=== PATIENT | female | born 1980 ===

== ENCOUNTER 2017-10-24 14:51 | Inpatient (IN) | payer MEDICARE, MEDICAID ==
--- NOTE | 2017-10-24 15:10 | ED PDOC ---
Arrival/HPI - General Time Seen by Provider: 10/24/17 15:01 Historian: Patient - History of Present Illness Narrative History of Present Illness (Text): 10/24/17 15:10 A 37 year old female, whose past medical history includes hyperlipidemia, ESRD with hemodialysis on M/W/F, right kidney transplant, and anemia, sent into the emergency department by compliance paralegal for abnormal blood culture results. Patient experienced chills yesterday during dialysis treatment and had blood cultures done, which showed positive for infection. Patient was given Vancomycin and instructed to present to the emergency room today. Patient denies any symptomatic complaints at this time. Patient denies any fever, nasal congestion, rhinorrhea, cough, nausea, vomiting, abdominal pain, chest pain, shortness of breath or any other complaints. PMD: Dr. Vigil Entry Engineer: Dr. Sanford Time/Duration: Other (yesterday) Context: Other (dialysis) Past Medical History - Provider Review Nursing Documentation Reviewed: Yes - Cardiac Hx Congestive Heart Failure: Yes Hx Hypertension: Yes - Pulmonary Hx Asthma: Yes (as a child) - Neurological Hx Neurological Disorder: No - HEENT Hx HEENT Disorder: No - Renal Hx Renal Disorder: Yes () - Endocrine/Metabolic Hx Endocrine Disorders: No - Hematological/Oncological Hx Anemia: Yes - Integumentary Hx Dermatological Disorder: No - Musculoskeletal/Rheumatological Hx Musculoskeletal Disorders: No Hx Falls: No - Gastrointestinal Hx Gastrointestinal Disorders: No - Genitourinary/Gynecological Hx Genitourinary Disorders: No - Psychiatric Hx Substance Use: No - Surgical History Hx Coronary Artery Bypass Graft: Yes (2004) - Anesthesia Hx Anesthesia: Yes Hx Anesthesia Reactions: No Hx Malignant Hyperthermia: No - Suicidal Assessment Feels Threatened In Home Enviroment: No Family/Social History - Physician Review Nursing Documentation Reviewed: Yes Family/Social History: No Known Family HX Smoking Status: Never Smoked Hx Alcohol Use: No Hx Substance Use: No Allergies/Home Meds Allergies/Adverse Reactions: Allergies azithromycin [From Zithromax] Allergy (Severe, Verified 10/24/17 20:33) anxiety,, nausea pt recvd 5 ml of zithromas ivpb, became anxiuos, and nauseas, states "I think Im having an allergy to this, zithromax dc/;d stat ciprofloxacin [From Cipro] Allergy (Verified 10/24/17 20:33) SHORTNESS OF BREATH ciprofloxacin HCl [From Cipro] Allergy (Verified 10/24/17 20:33) SHORTNESS OF BREATH promethazine HCl [From Phenergan] Allergy (Verified 10/24/17 20:33) ITCHING Patient received 25 mg IV, states she has itching. Patient was given Benadryl with Phenergan. Home Medications: Home Meds Medication Instructions Recorded Confirmed Calcitriol [Rocaltrol] 0.5 mcg PO DAILY 12/30/15 10/24/17 Labetalol [Trandate] 500 mg PO TID 12/30/15 10/24/17 NIFEdipine ER [Procardia XL] 30 mg PO Q8 12/30/15 10/24/17 Sevelamer Carbonate [Renvela] 800 mg PO TID 12/30/15 10/24/17 cloNIDine [Catapres] 0.3 mg PO Q8H 12/30/15 10/24/17 Review of Systems - Physician Review All systems were reviewed & negative as marked: Yes - Review of Systems Constitutional: Normal, Night Sweats (yesterday, resolved). absent: Fevers ENT: absent: Rhinorrhea, Sinus Congestion Respiratory: absent: SOB, Cough Cardiovascular: absent: Chest Pain Gastrointestinal: absent: Abdominal Pain, Nausea, Vomiting Physical Exam Vital Signs Temp Pulse Resp BP Pulse Ox 10/24/17 19:24 97.9 F 90 18 147/103 H 100 10/24/17 17:58 97.6 F 90 18 170/119 H 100 10/24/17 17:05 95 H 18 164/117 H 100 10/24/17 16:19 96 H 18 156/111 H 98 10/24/17 15:43 98.3 F 92 H 18 158/109 H 98 Appearance: Positive for: Well-Appearing, Non-Toxic, Comfortable Pain Distress: None Mental Status: Positive for: Alert and Oriented X 3 - Systems Exam Head: Present: Atraumatic, Normocephalic Pupils: Present: PERRL Extroacular Muscles: Present: EOMI Conjunctiva: Present: Normal Mouth: Present: Moist Mucous Membranes Neck: Present: Normal Range of Motion Respiratory/Chest: Present: Clear to Auscultation, Good Air Exchange, Other ( Left chest access c/d/i). No: Respiratory Distress, Accessory Muscle Use Cardiovascular: Present: Regular Rate and Rhythm, Normal S1, S2. No: Murmurs Abdomen: No: Tenderness, Distention, Peritoneal Signs Back: Present: Normal Inspection Upper Extremity: Present: Normal Inspection, NORMAL PULSES. No: Cyanosis, Edema Lower Extremity: Present: Edema (1+ pitting edema), NORMAL PULSES, Other ( petechiae to bilateral lower extermities around ankles). No: CALF TENDERNESS Neurological: Present: GCS=15, CN II-XII Intact, Speech Normal Skin: Present: Warm, Dry, Normal Color. No: Rashes Psychiatric: Present: Alert, Oriented x 3, Normal Insight, Normal Concentration Medical Decision Making ED Course and Treatment: 10/24/17 15:10 Impression: A 37 year old female sent in for abnormal blood cultures. Differential Diagnosis included but are not limited to: Line sepsis Plan: -- Chest xray -- EKG -- Labs -- Blood culture -- Vancomycin and Zosyn -- Reassess and disposition Progress Notes: EKG shows NSR at [address]-segment elevations, normal intervals, normal axis. Interpreted by me. 10/24/17 17:00 Patient's labs reviewed. Case discussed with Dr. Laurent who will admit to his service. Patient comfortable. She stated that after abx her stomach got upset. I offered Pepcid and Maalox but she states they both don't help her. "Tylenol was ordered. - Lab Interpretations Lab Results: 10/24/17 16:32 10/24/17 16:32 Lab Results 10/24/17 16:32: Sodium 143, Chloride 97 L, Potassium 4.8, Carbon Dioxide 27, Anion Gap 24 H, BUN 36 H, Creatinine 6.6 H, Est GFR ( Amer) 9, Est GFR ( Non-Af Amer) 7, Random Glucose 97, Calcium 8.9, Phosphorus 5.2 H, Magnesium 2.1 , Total Bilirubin 0.8, AST 23, ALT 29, Alkaline Phosphatase 151 H, Total Protein 7.9, Albumin 4.4, Globulin 3.5, Albumin/Globulin Ratio 1.2 10/24/17 16:32: pO2 51, VBG pH 7.35, VBG pCO2 55.0, VBG HCO3 30.4 H, VBG Total CO2 32.1 H, VBG O2 Sat (Calc) 87.6 H, VBG Base Excess 3.4 H, VBG Potassium 5.6 H , Sodium 137.0, Chloride 100.0, Glucose 97, Lactate 1.6, FiO2 21.0, Venous Blood Potassium 5.6 H 10/24/17 16:32: PT 11.8, INR 1.03, APTT 35.4 10/24/17 16:32: WBC 3.5 L, RBC 3.67, Hgb 11.6 L, Hct 35.3 L, MCV 96.2, MCH 31.6 , MCHC 32.9, RDW 17.4 H, Plt Count 120, MPV 10.3, Gran % 58.8, Lymph % (Auto) 24.6, [place] % (Auto) 10.6 H, Eos % (Auto) 5.7 H, Baso % (Auto) 0.3, Gran # 2.05, Lymph # (Auto) 0.9 L, [place] # (Auto) 0.4, Eos # (Auto) 0.2, Baso # (Auto) 0.01 I have reviewed the lab results: Yes - RAD Interpretation Radiology Orders: 10/24/17 15:17 CHEST PORTABLE [RAD] Stat - Medication Orders Current Medication Orders: Clonidine HCl (Catapres) 0.3 mg PO Q8 [facility] Last Admin: 10/24/17 21:56 Dose: 0.3 mg MAR Pulse and Blood Pressure Document 10/24/17 21:56 PCO (Rec: 10/24/17 21:57 PCO [facility] [id number]) Pulse Pulse Rate (60-90) 88 Blood Pressure Blood Pressure (100/60-150/90) 155/115 Piperacillin Sod/Tazobactam Sod (Zosyn 2.25 Gm In 0.9% 100 Ml) 2.25 gm in 100 mls @ 100 mls/hr IVPB Q8 [facility] PRN Reason: Protocol Stop: 10/25/17 06:59 Last Admin: 10/24/17 21:55 Dose: 100 mls/hr eMAR Start Stop Document 10/24/17 21:55 PCO (Rec: 10/24/17 21:56 PCO [facility] [id number]) Intravenous Solution Start Date 10/24/17 Start Time 21:55 End Date 10/24/17 End time 22:30 Total Infusion Time 35 Nifedipine (Procardia Xl) 90 mg PO BID MARGOT Pantoprazole Sodium (Protonix Ec Tab) 40 mg PO 0600 MARGOT Discontinued Medications Acetaminophen (Tylenol 325mg Tab) 650 mg PO STAT STA Stop: 10/24/17 18:08 Last Admin: 10/24/17 18:38 Dose: 650 mg MAR Pain/Vitals Document 10/24/17 18:38 OCS (Rec: 10/24/17 18:38 OCS [facility]) Pain Reassessment Is This A Pain ReAssessment? Yes Sleep Is patient sleeping during reassessment? No Presence of Pain Presence of Pain Yes Pain Scale Used Pain Scale Used Numeric Location Pain Location Body Site Abdomen Description Constant Intensity 7 Scale Used Numeric Clonidine HCl (Catapres) 0.3 mg PO Q8H MARGOT Piperacillin Sod/Tazobactam Sod (Zosyn 4.5 Gm In Ns 100ml) 4.5 gm in 100 mls @ 200 mls/hr IVPB STAT STA PRN Reason: Protocol Stop: 10/24/17 15:45 Last Admin: 10/24/17 16:35 Dose: 200 mls/hr eMAR Start Stop Document 10/24/17 16:35 OCS (Rec: 10/24/17 16:36 OCS [facility]) Intravenous Solution Start Date 10/24/17 Start Time 16:36 End Date 10/24/17 End time 17:06 Total Infusion Time 30 Vancomycin HCl (Vancomycin 750 Mg In Ns) 750 mg in 250 mls @ 167 mls/hr IVPB STAT STA PRN Reason: Protocol Stop: 10/24/17 16:50 Last Admin: 10/24/17 18:30 Dose: 167 mls/hr eMAR Start Stop Document 10/24/17 18:30 OCS (Rec: 10/24/17 18:30 OCS [facility]) Intravenous Solution Start Date 10/24/17 Start Time 18:30 End Date 10/24/17 End time 20:00 Total Infusion Time 90 - Scribe Statement The provider has reviewed the documentation as recorded by the Scribe Vikki Talley Provider Scribe Attestation: All medical record entries made by the Scribe were at my direction and personally dictated by me. I have reviewed the chart and agree that the record accurately reflects my personal performance of the history, physical exam, medical decision making, and the department course for this patient. I have also personally directed, reviewed, and agree with the discharge instructions and disposition. Disposition/Present on Arrival - Present on Arrival Any Indicators Present on Arrival: No History of DVT/PE: No History of Uncontrolled Diabetes: No Urinary Catheter: No History Surgical Site Infection Following: None - Disposition Have Diagnosis and Disposition been Completed?: Yes Diagnosis: Sepsis Disposition: HOSPITALIZED Disposition Time: 17:00 Patient Plan: Admission Patient Problems: Current Active Problems Problem Status Onset Sepsis Acute Condition: FAIR
[2017-10-24] MEDS ORDERED: Piperacill/Tazo 4.5gm in NS 4.5 GM/100 ML BAG IVPB STA (15:16)
[2017-10-24] MEDS ORDERED: Vancomycin 750mg 750 MG/250 ML BAG IVPB STA (15:21)
[2017-10-24 16:43] LABS: VENOUS BLOOD GAS BASE EXCESS 3.4 mmol/L (0.0-2.0); VENOUS BLOOD GAS PO2 51 mm/Hg (30-55); VENOUS BLOOD PH 7.35 (7.32-7.43)
[2017-10-24 16:44] LABS: BASO # 0.01 K/mm3 (0.0-2.0); BASO % 0.3 % (0.0-3.0); EOS # 0.2 (0.0-0.7); EOS % 5.7 % (1.5-5.0); GRAN # 2.05 (1.4-6.5); GRAN % 58.8 % (50.0-68.0); HEMOGLOBIN 11.6 g/dL (12.0-16.0); LYMPH # 0.9 (1.2-3.4); LYMPH % 24.6 % (22.0-35.0); MEAN CELL VOLUME 96.2 fl (80.0-105.0); MEAN CORPUSCULAR HEMOGLOBIN 31.6 pg (25.0-35.0); MEAN CORPUSCULAR HGB CONC 32.9 g/dl (31.0-37.0); MEAN PLATELET VOLUME 10.3 fl (7.0-11.0); MONO # 0.4 (0.1-0.6); MONO % 10.6 % (1.0-6.0); RBC 3.67 10^6/uL (3.5-6.1); RED CELL DISTRIBUTION WIDTH 17.4 % (11.5-14.5); WHITE BLOOD COUNT 3.5 10^3/ul (4.5-11.0)
[2017-10-24 16:54] LABS: ALB/GLOB RATIO 1.2 (1.1-1.8); ALBUMIN 4.4 g/dL (3.0-4.8); CALCIUM 8.9 mg/dL (8.4-10.5); INR 1.03 (0.93-1.08); PARTIAL THROMBOPLASTIN TIME 35.4 Seconds (25.1-36.5); PROTHROMBIN TIME 11.8 SECONDS (9.4-12.5)
--- NOTE | 2017-10-24 17:07 | CP.PCM.HP ---
<Ramiro Salazar - Last Filed: 10/24/17 19:06> History of Present Illness - History of Present Illness History of Present Illness: Subjective: Patient is a 37 year old female with a past medical history HTN, ESRD and CKD currently on dialysis (MWF), HUS, anemia who was sent into the emergency department per rack pusher for abnormal blood culture results. Patient states she experienced chills yesterday during dialysis treatment and had blood cultures drawn which were positive for infection. Patient was given vancomycin and instructed to present to the emergency room today. Patient states chills have subsided. Does not make urine at baseline. Patient admits to vaginal discharge, yellow in color associated with itchiness and burning. Denies recent sexual activity. Denies hx of STDs. States the vaginal discharge occurs intermittently over the past several months and has been treated for it in the past. Denies fevers, chest pain, SOB, abdominal pain, N/V, diarrhea, constipation. 12 point ROS negative except as indicated in HPI PMHx: HTN, ESRD and CKD currently on dialysis (MWF) in [place] PSHx: 2004 superior vena cava revascularization due to blockages, 2005 right kidney transplant, 2010 breast implants ALL: Cipro- anaphylaxis SHx: denies tobacco use, ETOH use, and illicit drug use FMHx: father cardiomegaly, mother- CAD PMD: Dr. Vigil Pharmacy: [facility] in [place] Physical Examination: - Constitutional Appears: Non-toxic, No Acute Distress - Head Exam Head Exam: ATRAUMATIC, NORMOCEPHALIC - Eye Exam Eye Exam: EOMI - ENT Exam ENT Exam: Mucous Membranes Moist - Neck Exam Neck exam: Positive for: Full Rom - Respiratory Exam Respiratory Exam: CTA bilaterally - Cardiovascular Exam Cardiovascular Exam: +S1, +S2. absent: Systolic Murmur - GI/Abdominal Exam GI & Abdominal Exam: Normal Bowel Sounds, Soft, RLQ bump secondary to transplant absent: Distended, Firm, Mass, Rebound, Rigid - Extremities Exam Extremities exam: Positive for: normal inspection. Negative for: calf tenderness, pedal edema - Neurological Exam Neurological exam: Alert, Oriented x3 - Exam exam: pelvic exam performed by Juliane Johansen DO and chaperoned by female nurse, as per physician- white milky discharge, no labial redness - Psychiatric Exam Psychiatric exam: Normal Affect, Normal Mood - Skin Skin Exam: Intact, Normal Color, Warm, left wall chest port clean dry intact; bilateral lower extremity erythematous rash Assessment and Plan: Patient is a 37 year old female with a past medical history HTN, ESRD and CKD currently on dialysis (MWF) who was admitted for evaluation and treatment of abnormal blood culture results. Bacteremia - blood cultures- gram negative rods - vancomycin and zosyn started in ED - zosyn 2.25 mg q8h - infectious disease consulted- appreciate recommendations for antibiotic regiment - need to find source- CT abdomen/pelvis IV contrast, RUQ abdominal ultrasound, echocardiogram Bilateral Lower Extremity Erythematous Rash - likely 2/2 dermal irritation - no acute intervention - monitor closely Vaginal Discharge - chlamydia culture - will contact lab to find gonorrhea testing that is available in house Hx of ESRD on MWF - BUN creatinine reviewed, trended, and appreciated- elevated compared to baseline - nephrology consult for dialysis Hx of HTN - BP 160s/110s reviewed, trended, and appreciated- elevated compared to baseline - continue home nifidipine and clonidine - clarify home labetalol dosage prior to starting as 500mg TID is over the maximum dosage allowed per day Prophylaxis - DVT ppx- SCDs - GI ppx- protonix Patient case reviewed with and plan approved by attending physician, Dr. Laurent. Present on Admission - Present on Admission Any Indicators Present on Admission: No Past Patient History - Infectious Disease Hx of Infectious Diseases: None - Past Medical History & Family History Past Medical History?: Yes - Past Social History Smoking Status: Never Smoked - CARDIAC Hx Congestive Heart Failure: Yes Hx Hypertension: Yes - PULMONARY Hx Asthma: Yes (as a child) - NEUROLOGICAL Hx Neurological Disorder: No - HEENT Hx HEENT Problems: No - RENAL Hx Chronic Kidney Disease: Yes () - ENDOCRINE/METABOLIC Hx Endocrine Disorders: No - HEMATOLOGICAL/ONCOLOGICAL Hx Anemia: Yes - INTEGUMENTARY Hx Dermatological Problems: No - MUSCULOSKELETAL/RHEUMATOLOGICAL Hx Musculoskeletal Disorders: No Hx Falls: No - GASTROINTESTINAL Hx Gastrointestinal Disorders: No - GENITOURINARY/GYNECOLOGICAL Hx Genitourinary Disorders: No - PSYCHIATRIC Hx Substance Use: No - SURGICAL HISTORY Hx Coronary Artery Bypass Graft: Yes (2004) - ANESTHESIA Hx Anesthesia: Yes Hx Anesthesia Reactions: No Hx Malignant Hyperthermia: No Meds Allergies/Adverse Reactions: Allergies Allergy/AdvReac Type Severity Reaction Status Date / Time azithromycin [From Zithromax] Allergy Severe anxiety,, Verified 10/24/17 20:33 nausea ciprofloxacin [From Cipro] Allergy SHORTNESS Verified 10/24/17 20:33 OF BREATH ciprofloxacin HCl Allergy SHORTNESS Verified 10/24/17 20:33 [From Cipro] OF BREATH promethazine HCl Allergy ITCHING Verified 10/24/17 20:33 [From Phenergan] Results - Vital Signs Recent Vital Signs: Last Vital Signs Temp 98.3 F 10/24/17 15:43 Pulse 95 H 10/24/17 17:05 Resp 18 10/24/17 17:05 BP 164/117 H 10/24/17 17:05 Pulse Ox 100 10/24/17 17:05 - Labs Result Diagrams: 10/24/17 16:32 10/24/17 16:32 Labs: Laboratory Results - last 24 hr 10/24/17 10/24/17 10/24/17 16:32 16:32 16:32 WBC 3.5 L RBC 3.67 Hgb 11.6 L Hct 35.3 L MCV 96.2 MCH 31.6 MCHC 32.9 RDW 17.4 H Plt Count 120 MPV 10.3 Gran % 58.8 Lymph % (Auto) 24.6 [place] % (Auto) 10.6 H Eos % (Auto) 5.7 H Baso % (Auto) 0.3 Gran # 2.05 Lymph # (Auto) 0.9 L [place] # (Auto) 0.4 Eos # (Auto) 0.2 Baso # (Auto) 0.01 PT 11.8 INR 1.03 APTT 35.4 pO2 51 VBG pH 7.35 VBG pCO2 55.0 VBG HCO3 30.4 H VBG Total CO2 32.1 H VBG O2 Sat (Calc) 87.6 H VBG Base Excess 3.4 H VBG Potassium 5.6 H Sodium 137.0 Chloride 100.0 Glucose 97 Lactate 1.6 FiO2 21.0 Potassium Carbon Dioxide Anion Gap BUN Creatinine Est GFR ( Amer) Est GFR (Non-Af Amer) Random Glucose Calcium Phosphorus Magnesium Total Bilirubin AST ALT Alkaline Phosphatase Total Protein Albumin Globulin Albumin/Globulin Ratio Venous Blood Potassium 5.6 H 10/24/17 16:32 WBC RBC Hgb Hct MCV MCH MCHC RDW Plt Count MPV Gran % Lymph % (Auto) [place] % (Auto) Eos % (Auto) Baso % (Auto) Gran # Lymph # (Auto) [place] # (Auto) Eos # (Auto) Baso # (Auto) PT INR APTT pO2 VBG pH VBG pCO2 VBG HCO3 VBG Total CO2 VBG O2 Sat (Calc) VBG Base Excess VBG Potassium Sodium 143 Chloride 97 L Glucose Lactate FiO2 Potassium 4.8 Carbon Dioxide 27 Anion Gap 24 H BUN 36 H Creatinine 6.6 H Est GFR ( Amer) 9 Est GFR (Non-Af Amer) 7 Random Glucose 97 Calcium 8.9 Phosphorus 5.2 H Magnesium 2.1 Total Bilirubin 0.8 AST 23 ALT 29 Alkaline Phosphatase 151 H Total Protein 7.9 Albumin 4.4 Globulin 3.5 Albumin/Globulin Ratio 1.2 Venous Blood Potassium <Mayra Laurent - Last Filed: 10/26/17 14:14> Results - Vital Signs Recent Vital Signs: Last Vital Signs Temp 98.1 F 10/26/17 00:15 Pulse 89 10/26/17 06:44 Resp 16 10/26/17 00:15 BP 129/94 H 10/26/17 06:44 Pulse Ox 100 10/26/17 00:15 - Labs Result Diagrams: 10/26/17 07:00 10/26/17 07:00 Labs: Laboratory Results - last 24 hr 10/25/17 10/26/17 10/26/17 08:00 07:00 07:00 WBC 6.1 D RBC 3.39 L Hgb 10.5 L Hct 32.2 L MCV 95.0 MCH 31.0 MCHC 32.6 RDW 17.1 H Plt Count 93 L MPV 10.0 Gran % 78.9 H Lymph % (Auto) 7.9 L [place] % (Auto) 10.0 H Eos % (Auto) 3.0 Baso % (Auto) 0.2 Gran # 4.80 Lymph # (Auto) 0.5 L [place] # (Auto) 0.6 Eos # (Auto) 0.2 Baso # (Auto) 0.01 Sodium 138 Potassium 4.1 Chloride 97 L Carbon Dioxide 26 Anion Gap 19 BUN 31 H Creatinine 6.5 H Est GFR ( Amer) 9 Est GFR (Non-Af Amer) 7 Random Glucose 98 Calcium 8.3 L Phosphorus 4.6 H Magnesium 2.0 Total Bilirubin 0.7 AST 15 ALT 25 Alkaline Phosphatase 128 H Total Protein 6.8 Albumin 3.7 Globulin 3.1 Albumin/Globulin Ratio 1.2 HIV 1&2 Ag/Ab, 4th Gen Nonreactive Attending/Attestation - Attestation I have personally seen and examined this patient.: Yes I have fully participated in the care of the patient.: Yes I have reviewed all pertinent clinical information: Yes Notes (Text): 10/26/17 14:13 Medical record note made by the resident after discussion with my direction and input after the patient was personally seen and examined by me. I have reviewed the chart and agree that the record accurately reflects by personal performance of the history, physical exam, data review, and medical decision-making, in the course for the patient. I have also personally directed the plan of care. 37 F with hx of ESRD on hemodialysis (MWF) via permacath, last dialysis wesnesday chronic anemia, hyperphosphatemia, secondary hyperparathyroidism, hypertension ,H/O renal transplant which is not functional presented with complaints of chills during dialysis and found to have gram negative bacteremia.identification is pending We will start patient on IV Zosyn.We will get ID consult.We will also get CT scan of abdomen and Pelvis and 2 D echo.We will follow up repeat blood cultures. Management plan was discussed in detail with patient. Education was provided.
--- NOTE | 2017-10-24 21:10 | CARD ---
APPROVED REPORT EKG Measurement Heart [id number] <Conclusion> Normal sinus rhythm Possible Left atrial enlargement Nonspecific T wave abnormality Prolonged QT Abnormal ECG
[2017-10-24] MEDS ORDERED: Piperacillin/Tazobact 2.25gm 2.25 GM/100 ML BAG IVPB SCH (22:00)
--- NOTE | 2017-10-24 22:09 | US ---
EXAM: US Abdomen Complete EXAM DATE/TIME: 10/24/2017 6:28 PM CLINICAL HISTORY: The patient age is 37 years old and is female; Pain; Abdominal pain; Generalized; Additional info: Bacteremia, abd pain Facility exam id and description: Us abd abdomen complete TECHNIQUE: Real-time ultrasound of the abdomen (complete) with image documentation. COMPARISON: No relevant prior studies available. FINDINGS: Liver: The liver measures 15.1 x 14.4 cm. Gallbladder: The gallbladder is partially contracted, without discrete gallstones. There is no significant collateral thickening. Common bile duct: The common bile duct measures 0.7 cm in diameter, which is at the upper limits of normal. Pancreas: There is suboptimal evaluation of the tail of the pancreas due to bowel gas. No focal abnormality is seen within the visualized head or body of the pancreas. Kidneys: The right kidney measures 8.3 x 2.6 x 4.4 cm. The left kidney measures 8.8 x 3.5 x 3.2 cm. There is no hydronephrosis of the [place]ath kidneys. There is increased echogenicity of the bilateral kidneys, consistent with medical renal disease. There is atrophy of the [place] kidneys as well. At the upper pole of the left kidney, there is a 0.8 x 0.5 cm hypoechoic cyst. Within the right lower quadrant, a transplant kidney is visualized measuring 7.5 x 4.6 x 4.3 cm. There is significant decreased flow in involving the right transplant kidney, and transplant failure is considered. Multiple tiny echogenic foci or calcifications are visualized associated with the transplant kidney. Spleen: The spleen measures 14.9 x 5.6 cm, consistent with splenomegaly. There is normal echotexture of the spleen. Aorta: There is a limited evaluation of the abdominal aorta. The visualized segment is patent. Inferior vena cava: The visualized segment of the IVC is patent. IMPRESSION: 1. Splenomegaly. 2. There is increased echogenicity of the bilateral kidneys, consistent with medical renal disease. There is atrophy of the [place]cgrath kidneys as well. At the upper pole of the left kidney, there is a 0.8 x 0.5 cm hypoechoic cyst. 3. Within the right lower quadrant, a transplant kidney is visualized measuring 7.5 x 4.6 x 4.3 cm. There is significant decreased flow in involving the right kidney, and transplant failure is considered. 4. Additional findings described above.
[2017-10-24] MEDS ORDERED: Oxycodone/Acetaminophen 5/325 mg Tab PO PRN (23:10)
[2017-10-24 23:11] VITALS: BMI 16.4
[2017-10-24] MEDS ORDERED: Pneumococcal 23-Valent Vaccine IM ONE (23:11)
[2017-10-24] MEDS: Meropenem 500 MG in Sodium Chloride 0.9% 50 ML IVPB SCH (23:44)
[2017-10-25] MEDS: Pantoprazole 40 mg EC Tab PO SCH (06:01)
--- NOTE | 2017-10-25 06:53 | CP.PCM.PN ---
<Kaia Tena - Last Filed: 10/25/17 13:00> Subjective - Date & Time of Evaluation Date of Evaluation: 10/25/17 Time of Evaluation: 06:53 - Subjective Subjective: Internal Medicine Progress Note: Patient seen and examined at bedside. Per nursing no acute events overnight. Patient complaining of vaginal itching x 1 week. She states that she was using vaginal creams for yeast infection but no relief. Offers no other complaints at this time. Denies fevers/chills, nausea/vomiting, headaches, dizziness, cp, palpitations, sob, abdominal pain, changes in bowel habits. Patient will go or CT abd/pelvis with IV contrast then Dialysis to follow. Objective - Vital Signs/Intake and Output Vital Signs (last 24 hours): Temp Pulse Resp BP Pulse Ox 97.1 F L 90 18 155/115 H 100 10/24/17 22:38 10/24/17 22:38 10/24/17 22:38 10/24/17 22:38 10/24/17 19:24 Intake and Output: 10/24/17 10/25/17 18:59 06:59 Intake Total 240 Balance 240 - Medications Medications: Current Medications Clonidine HCl (Catapres) 0.3 mg PO Q8 [facility] Last Admin: 10/24/17 21:56 Dose: 0.3 mg Meropenem 500 mg/ Sodium (Chloride) 50 mls @ 100 mls/hr IVPB Q12 [facility] PRN Reason: Protocol Stop: 11/02/17 22:42 Last Admin: 10/24/17 23:44 Dose: 100 mls/hr Nifedipine (Procardia Xl) 90 mg PO BID [facility] Oxycodone/Acetaminophen (Percocet 5/325 Mg Tab) 1 tab PO ONCE PRN PRN Reason: pain Stop: 10/27/17 23:11 Pantoprazole Sodium (Protonix Ec Tab) 40 mg PO 0600 [facility] - Labs Labs: PT 11.8 SECONDS (9.4-12.5) 10/24/17 16:32 INR 1.03 (0.93-1.08) 10/24/17 16:32 APTT 35.4 Seconds (25.1-36.5) 10/24/17 16:32 - Constitutional Appears: Non-toxic, No Acute Distress, Chronically Ill - Head Exam Head Exam: ATRAUMATIC, NORMAL INSPECTION, NORMOCEPHALIC - Eye Exam Eye Exam: EOMI, Normal appearance Pupil Exam: NORMAL ACCOMODATION - ENT Exam ENT Exam: Mucous Membranes Moist - Respiratory Exam Respiratory Exam: Clear to Ausculation Bilateral, NORMAL BREATHING PATTERN. absent: Rales, Rhonchi, Wheezes - Cardiovascular Exam Cardiovascular Exam: REGULAR RHYTHM, +S1, +S2 Additional comments: Left sided Dialysis catheter, appears clean, no drainage, erythema, tenderness - GI/Abdominal Exam GI & Abdominal Exam: Soft, Tenderness, Normal Bowel Sounds. absent: Guarding, Rigid Additional comments: RLQ tenderness to palpation, negative murphys, no rebound tenderness - Extremities Exam Additional comments: Old AVF (reversed) on left upper arm - Neurological Exam Neurological Exam: Alert, Awake, Normal Gait, Oriented x3 - Psychiatric Exam Psychiatric exam: Normal Affect, Normal Mood - Skin Skin Exam: Dry, Normal Color, Warm Assessment and Plan - Assessment and Plan (Free Text) Assessment: Assessment and Plan: Patient is a 37 year old female with a past medical history HTN, ESRD and CKD currently on dialysis (MWF) who was admitted for evaluation and treatment of abnormal blood culture results. Gram Negative Bacteremia - 10/23 Blood cultures- gram negative rods, awaiting sensitivities - Repeat blood cultures drawn 10/24 pending, procal elevated 43 - Source is unknown at this time, patient states that permacath was recently changed secondary to infection - CT abd/pelvis with IV contrast to be done today to rule out intra-abdominal source - Echocardiogram ordered - Abdominal US: Splenomegaly, increased echogenity of bilateral kidneys (see full report) - CXR: Mild pulmonary venous congestion - Vancomycin and Zosyn started in ED - Antibiotics: Merrem 500 Q12H IV - Infectious disease consulted- appreciate recommendations for antibiotic regiment Bilateral Lower Extremity Erythematous Rash - likely 2/2 dermal irritation - no acute intervention - monitor closely Vaginal Discharge/Vaginal Itchiness - Chlamydia culture sent to lab - Will give Diflucan 150mg q72H x 2 doses for severe yeast infection Hx of ESRD on MWF - Patient for HD today after CT scan - Renagel 2400mg PO TID - Nephro-duke 1 tab PO daily - Patient does not make urine - Nephrology consult for dialysis Hx of HTN - Continue home nifidipine and clonidine - Hydralazine 25mg PO Q4H prn - Will continue to monitor Prophylaxis - DVT ppx- SCDs - GI ppx- protonix <Mayra Laurent - Last Filed: 10/26/17 14:12> Objective - Vital Signs/Intake and Output Vital Signs (last 24 hours): Temp Pulse Resp BP Pulse Ox 98.1 F 89 16 129/94 H 100 10/26/17 00:15 10/26/17 06:44 10/26/17 00:15 10/26/17 06:44 10/26/17 00:15 Intake and Output: 10/26/17 10/26/17 06:59 18:59 Intake Total 700 Balance 700 - Medications Medications: Current Medications Clonidine HCl (Catapres) 0.3 mg PO Q8 [facility] Last Admin: 10/26/17 06:44 Dose: 0.3 mg Doxercalciferol (Hectorol) 2 mcg [facility]P [facility] Last Admin: 10/25/17 14:07 Dose: 2 mcg Etelcalcetide (Parsabiv) 5 mg IVP [facility] Last Admin: 10/25/17 14:09 Dose: 5 mg Fluconazole (Diflucan) 150 mg PO ONCE ONE PRN Reason: Protocol Stop: 10/28/17 11:01 Heparin Sodium (Porcine) (Heparin) 1,000 units IVP [facility] PRN Reason: Protocol Hydralazine HCl (Apresoline) 25 mg PO Q4 PRN PRN Reason: Other Meropenem 500 mg/ Sodium (Chloride) 50 mls @ 100 mls/hr IVPB Q12 [facility] PRN Reason: Protocol Stop: 11/02/17 22:42 Last Admin: 10/26/17 13:38 Dose: 100 mls/hr Nifedipine (Procardia Xl) 90 mg PO BID [facility] Last Admin: 10/26/17 13:39 Dose: 90 mg Oxycodone/Acetaminophen (Percocet 5/325 Mg Tab) 1 tab PO ONCE PRN PRN Reason: pain Stop: 10/27/17 23:11 Pantoprazole Sodium (Protonix Ec Tab) 40 mg PO 0600 [facility] Last Admin: 10/26/17 06:44 Dose: 40 mg Polyethylene Glycol (Miralax) 17 gm PO BID [facility] Last Admin: 10/26/17 13:39 Dose: 17 gm Sevelamer HCl (Renagel) 2,400 mg PO TID [facility] Last Admin: 10/26/17 13:39 Dose: 2,400 mg Vitamin B Complex/Vit C/Folic Acid (Nephro-[facility]) 1 tab PO 0800 [facility] Last Admin: 10/26/17 08:30 Dose: 1 tab - Labs Labs: 10/26/17 07:00 10/26/17 07:00 PT 11.8 SECONDS (9.4-12.5) 10/24/17 16:32 INR 1.03 (0.93-1.08) 10/24/17 16:32 APTT 35.4 Seconds (25.1-36.5) 10/24/17 16:32 Attending/Attestation - Attestation I have personally seen and examined this patient.: Yes I have fully participated in the care of the patient.: Yes I have reviewed all pertinent clinical information, including history, physical exam and plan: Yes Notes (Text): 10/26/17 14:00 Medical record note made by the resident after discussion with my direction and input after the patient was personally seen and examined by me. I have reviewed the chart and agree that the record accurately reflects by personal performance of the history, physical exam, data review, and medical decision-making, in the course for the patient. I have also personally directed the plan of care. 37 F with hx of ESRD on hemodialysis (MWF) via permacath, last dialysis wesnesday chronic anemia, hyperphosphatemia, secondary hyperparathyroidism, hypertension ,H/O renal transplant which is not functional presented with complaints of chills during dialysis and found to have gram negative bacteremia. CT scan of abdomen and Pelvis is negative for any source of infection.Etiology is likely line sepsis as blood cultures drawn from peripherally are negative. Continue IV antibiotics as per ID.We will follow up Echo. Management plan was discussed in detail with patient. Education was provided.
[2017-10-25 08:20] LABS: BASO # 0.01 K/mm3 (0.0-2.0); BASO % 0.3 % (0.0-3.0); EOS # 0.2 (0.0-0.7); EOS % 5.6 % (1.5-5.0); GRAN # 2.44 (1.4-6.5); GRAN % 67.9 % (50.0-68.0); HEMOGLOBIN 10.4 g/dL (12.0-16.0); LYMPH # 0.7 (1.2-3.4); LYMPH % 19.2 % (22.0-35.0); MEAN CORPUSCULAR HEMOGLOBIN 30.8 pg (25.0-35.0); MEAN CORPUSCULAR HGB CONC 32.4 g/dl (31.0-37.0); MEAN PLATELET VOLUME 10.8 fl (7.0-11.0); MONO # 0.3 (0.1-0.6); RBC 3.38 10^6/uL (3.5-6.1); RED CELL DISTRIBUTION WIDTH 17.2 % (11.5-14.5); WHITE BLOOD COUNT 3.6 10^3/ul (4.5-11.0)
[2017-10-25 08:34] LABS: ALB/GLOB RATIO 1.4 (1.1-1.8); ALBUMIN 4.3 g/dL (3.0-4.8)
[2017-10-25] MEDS ORDERED: Iohexol 350 MG/100 ML VIAL ONE (08:39)
[2017-10-25] MEDS: NIFEdipine 90 mg ER Tab PO SCH ×2 (10:49→15:48)
--- NOTE | 2017-10-25 11:08 | RAD ---
HISTORY: Sepsis Patient COMPARISON: No prior. FINDINGS: The left PermCath terminates at the cavoatrial junction. LUNGS: The lungs are well inflated. There is mild pulmonary venous congestion. No focal consolidation. PLEURA: No significant pleural effusion identified, no pneumothorax apparent. CARDIOVASCULAR: There is mild cardiomegaly. Status post median sternotomy. OSSEOUS STRUCTURES: No significant abnormalities. VISUALIZED UPPER ABDOMEN: Normal. OTHER FINDINGS: None. IMPRESSION: Mild pulmonary venous congestion. No active pulmonary disease.
--- NOTE | 2017-10-25 11:12 | CP.PCM.CON ---
History of Present Illness - History of Present Illness History of Present Illness: Nephrology Consultation Note: Assessment: critical Sepsis with GNR ? permacath infection Hypertensive Chronic Kidney Disease (I12.0) End stage renal disease (N18.6) dependence on hemodialysis (Z99.2) (MWF) via permacath Anemia (D64.9), Hyperphosphatemia (E83.39), Secondary Hyperparathyroidism (E21.1 ), HTN (I12.0) hx of kidney transplant [id number] hx of SVC reconstruction Plan: Will plan for HD today as ordered. Continue with Nephrovite 1 tab/day. PRBC as needed for anemia. On ALVARO as weekly aransep 25 mcg with dialysis, last Hb 10.4 Continue with phos binders home dose, last phos level 5.6 Continue with hectorol and parsabiv with HD BP control with meds as ordered. Patient not on RAAS benito, she was prescribed as outpt but she doesn't take it. added prn hydralazine. Glycemic control, Dialysis consistent diet Further work up/management as per primary team Dose meds/antibiotics for ESRD status. Avoid fleets enema/magnesium based laxatives. she is planned for CT abdomen. if no other source for infection found, will strongly consider permacath as the source. Depending upon blood cx results, hopefully can just change it over guidewire by IR. Thanks for allowing me to participate in care of your patient. Will follow patient with you. Please call if any Qs. d/w ID and Primary team Dr Yvon Sanford Office: [phone] Chief Complaint; chills during dialysis HPI: Pt is a 37 F with hx of ESRD on hemodialysis (MWF) via permacath, last dialysis wed, chronic anemia, hyperphosphatemia, secondary hyperparathyroidism, hypertension presented with complaints of chills during dialysis and found to have gram negative bacteremia hence admitted for further eval. she c/o rash around ankles. also feels somewhat SOB, reports ankle swelling she is anuric also reports difficult access with hx of SVC reconstruction, left AVF thrombosis. 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 received a kidney transplant in 2005 (@ [place] with Dr Laird) which failed in 2015 and pt back on HD since then ROS: Cardiovascular: No chest pain. Pulmonary: c/o shortness of breath Gastrointestinal: c/o RLQ abdominal pain No nausea. No vomiting. Genitourinary: anuric All other negative Physical Examination: General Appearance: Comfortable, in no acute respiratory distress, co-operative . Vitals reviewed and noted as below Head; Atraumatic, normocephalic ENT: no ulcers no thrush. Tongue is midline. Oropharynx: no rash or ulcers. EYES: Pupils are equal, round and reactive to light accommodation. Eye muscles and extraocular movement intact. Sclera is anicteric. Neck; supple no lymphadenopathy, no thyromegaly or bruit. Lungs: Normal respiratory rate/effort. Breath sounds bilateral equal and clear Heart: Normal rate. s1s2 normal. No rub or gallop. chest midline scar noted Extremities: 1-2+ edema. No varicose veins Neurological: Patient is alert, awake and oriented to person, place and time. No focal deficit. Strength bilateral appropriate and equal Skin: Warm and dry. Normal turgor. Palpitation: Normal elasticity for age. petechial non blanching rash around ankle noted Abdomen: Abdomen is soft. Bowel sounds +. There is no abdominal tenderness, no guarding/rigidity or organomegaly, mild tenderness over RLQ renal allograft noted Psych: normal insight and normal affect/mood MSK: no joint tenderness or swelling. Digits and nails normal, no deformity : [place] kidney or bladder not palpable Access: left permacath. left avf thrombosed. Labs/imaging reviewed. Past medical history, past surgical history, family history, social history, allergy reviewed and noted as below Family Hx: sister also on HD (pt says due to HUS) rest Non contributory Past Patient History - Infectious Disease Hx of Infectious Diseases: None - Past Medical History & Family History Past Medical History?: Yes - Past Social History Smoking Status: Never Smoked - CARDIAC Hx Congestive Heart Failure: Yes Hx Hypertension: Yes - PULMONARY Hx Asthma: Yes (as a child) - NEUROLOGICAL Hx Neurological Disorder: No - HEENT Hx HEENT Problems: No - RENAL Hx Chronic Kidney Disease: Yes (HD ) - ENDOCRINE/METABOLIC Hx Endocrine Disorders: No - HEMATOLOGICAL/ONCOLOGICAL Hx Anemia: Yes - INTEGUMENTARY Hx Dermatological Problems: No - MUSCULOSKELETAL/RHEUMATOLOGICAL Hx Musculoskeletal Disorders: No Hx Falls: No - GASTROINTESTINAL Hx Gastrointestinal Disorders: No - GENITOURINARY/GYNECOLOGICAL Hx Genitourinary Disorders: No - PSYCHIATRIC Hx Substance Use: No - SURGICAL HISTORY Hx Coronary Artery Bypass Graft: Yes (2004) - ANESTHESIA Hx Anesthesia: Yes Hx Anesthesia Reactions: No Hx Malignant Hyperthermia: No Meds Allergies/Adverse Reactions: Allergies Allergy/AdvReac Type Severity Reaction Status Date / Time azithromycin [From Zithromax] Allergy Severe anxiety,, Verified 10/24/17 20:33 nausea ciprofloxacin [From Cipro] Allergy SHORTNESS Verified 10/24/17 20:33 OF BREATH ciprofloxacin HCl Allergy SHORTNESS Verified 10/24/17 20:33 [From Cipro] OF BREATH promethazine HCl Allergy ITCHING Verified 10/24/17 20:33 [From Phenergan] - Medications Medications: Current Medications Clonidine HCl (Catapres) 0.3 mg PO Q8 [facility] Last Admin: 10/25/17 06:54 Dose: 0.3 mg Etelcalcetide (Parsabiv) 5 mg IVP MWF [facility] Heparin Sodium (Porcine) (Heparin) 1,000 units IVP [facility] PRN Reason: Protocol Hydralazine HCl (Apresoline) 25 mg PO Q4 PRN PRN Reason: Other Meropenem 500 mg/ Sodium (Chloride) 50 mls @ 100 mls/hr IVPB Q12 [facility] PRN Reason: Protocol Stop: 11/02/17 22:42 Last Admin: 10/24/17 23:44 Dose: 100 mls/hr Nifedipine (Procardia Xl) 90 mg PO BID [facility] Last Admin: 10/25/17 10:49 Dose: Not Given Oxycodone/Acetaminophen (Percocet 5/325 Mg Tab) 1 tab PO ONCE PRN PRN Reason: pain Stop: 10/27/17 23:11 Pantoprazole Sodium (Protonix Ec Tab) 40 mg PO 0600 [facility] Sevelamer HCl (Renagel) 2,400 mg PO TID [facility] Vitamin B Complex/Vit C/Folic Acid (Nephro-Teresa) 1 tab PO 0800 [facility] Results - Vital Signs Recent Vital Signs: Last Vital Signs Temp 98 F 10/25/17 06:00 Pulse 83 10/25/17 06:54 Resp 20 10/25/17 06:00 BP 135/98 H 10/25/17 06:54 Pulse Ox 99 10/25/17 06:00 - Labs Result Diagrams: 10/25/17 08:00 10/25/17 08:00 Labs: Laboratory Results - last 24 hr 10/25/17 10/25/17 10/25/17 08:00 08:00 09:00 WBC 3.6 L RBC 3.38 L Hgb 10.4 L Hct 32.1 L MCV 95.0 MCH 30.8 MCHC 32.4 RDW 17.2 H Plt Count 121 MPV 10.8 Gran % 67.9 Lymph % (Auto) 19.2 L [place] % (Auto) 7.0 H Eos % (Auto) 5.6 H Baso % (Auto) 0.3 Gran # 2.44 Lymph # (Auto) 0.7 L [place] # (Auto) 0.3 Eos # (Auto) 0.2 Baso # (Auto) 0.01 Sodium 143 Potassium 4.7 Chloride 99 Carbon Dioxide 24 Anion Gap 25 H BUN 42 H Creatinine 8.0 H* D Est GFR ( Amer) 7 Est GFR (Non-Af Amer) 6 Random Glucose 90 Calcium 9.0 Phosphorus 5.6 H Magnesium 2.1 Total Bilirubin 0.6 AST 26 ALT 28 Alkaline Phosphatase 151 H Total Protein 7.4 Albumin 4.3 Globulin 3.1 Albumin/Globulin Ratio 1.4 Beta HCG, Quant < 2.39
[2017-10-25] MEDS: Doxercalciferol 4 mcg/2 ml Inj IVP SCH (14:07)
[2017-10-25] MEDS: ETELCALCETIDE IVP SCH (14:09)
--- NOTE | 2017-10-25 14:11 | CT ---
PROCEDURE: CT Abdomen and Pelvis with contrast HISTORY: Bactermia COMPARISON: Ultrasound abdomen from 10/24/2017 TECHNIQUE: CT scan of the abdomen and pelvis was performed after administration of intravenous contrast. Oral contrast was not administered. Coronal and sagittal reformatted images were obtained. Contrast dose: 100 mL Omnipaque 350 Radiation dose: Total exam DLP = 188.50 mGy-cm. This CT exam was performed using one or more of the following dose reduction techniques: Automated exposure control, adjustment of the mA and/or kV according to patient size, and/or use of iterative reconstruction technique. FINDINGS: LOWER THORAX: The lung bases are clear. LIVER: There is mild hepatomegaly and diffuse fatty infiltration. No gross lesion or ductal dilatation. GALLBLADDER AND BILE DUCTS: No calcified gallstones. There is small pericholecystic fluid. PANCREAS: Normal in size with homogeneous enhancement. No gross lesion or ductal dilatation. SPLEEN: The spleen is enlarged and measures 15 cm. No focal lesion. ADRENALS: No discrete nodule. KIDNEYS AND URETERS: Both kidneys are atrophied. No hydronephrosis or nephrolithiasis. There is a nonenhancing transplant kidney in the right lower quadrant. VASCULATURE: Atherosclerotic aortoiliac calcifications. No aortic aneurysm. BOWEL: The small bowel loops are normal in caliber. The colon is unremarkable. No bowel dilatation or obstruction APPENDIX: Normal appendix. PERITONEUM: No free fluid. No free air. LYMPH NODES: No enlarged lymph nodes. BLADDER: Decompressed. REPRODUCTIVE: The uterus is normal in size. BONES: No acute fracture. The osseous changes of renal osteodystrophy. OTHER FINDINGS: None. IMPRESSION: 1. Mild hepatosplenomegaly and fatty liver. 2. Atrophied [place] kidneys and non perfused right liver quadrant renal transplant concerning for transplant failure. 3. Renal osteodystrophy.
[2017-10-25] MEDS: Meropenem 500 MG in Sodium Chloride 0.9% 50 ML IVPB SCH ×2 (15:01→22:00)
--- NOTE | 2017-10-25 21:31 | CP.PCM.CON ---
History of Present Illness - History of Present Illness History of Present Illness: 37 year old female with PMH of HTN, ESRD on HD, history of hemolytic uremic syndrome, chronic anemia, S/P kidney transplant, history of breast implants was sent in to [facility] after she started complaining of chills while undergoing dialysis 2 days ago. Blood cx were drawn at that time and blood cultures are positive for gram negative bacilli. She is also complaining of vaginal discharge with associated itching and burning in the genital area. She denies pain along the HD catheter, denies headache or dizziness, no chest pain, no SOB , no sore throat, no cough or colds, no abdominal pain, no dysuria, no diarrhea. Infectious Diseases consult is requested to further evaluate and manage. Review of Systems - Review of Systems All systems: reviewed and no additional remarkable complaints except (as per HPI ) Past Patient History - Infectious Disease Hx of Infectious Diseases: None - Past Medical History & Family History Past Medical History?: Yes - Past Social History Smoking Status: Never Smoked - CARDIAC Hx Congestive Heart Failure: Yes Hx Hypertension: Yes - PULMONARY Hx Asthma: Yes (as a child) - NEUROLOGICAL Hx Neurological Disorder: No - HEENT Hx HEENT Problems: No - RENAL Hx Chronic Kidney Disease: Yes () - ENDOCRINE/METABOLIC Hx Endocrine Disorders: No - HEMATOLOGICAL/ONCOLOGICAL Hx Anemia: Yes - INTEGUMENTARY Hx Dermatological Problems: No - MUSCULOSKELETAL/RHEUMATOLOGICAL Hx Musculoskeletal Disorders: No Hx Falls: No - GASTROINTESTINAL Hx Gastrointestinal Disorders: No - GENITOURINARY/GYNECOLOGICAL Hx Genitourinary Disorders: No - PSYCHIATRIC Hx Substance Use: No - SURGICAL HISTORY Hx Coronary Artery Bypass Graft: Yes (2004) - ANESTHESIA Hx Anesthesia: Yes Hx Anesthesia Reactions: No Hx Malignant Hyperthermia: No Meds Allergies/Adverse Reactions: Allergies Allergy/AdvReac Type Severity Reaction Status Date / Time azithromycin [From Zithromax] Allergy Severe anxiety,, Verified 10/24/17 20:33 nausea ciprofloxacin [From Cipro] Allergy SHORTNESS Verified 10/24/17 20:33 OF BREATH ciprofloxacin HCl Allergy SHORTNESS Verified 10/24/17 20:33 [From Cipro] OF BREATH promethazine HCl Allergy ITCHING Verified 10/24/17 20:33 [From Phenergan] - Medications Medications: Current Medications Clonidine HCl (Catapres) 0.3 mg PO Q8 [facility] Last Admin: 10/24/17 21:56 Dose: 0.3 mg Meropenem 500 mg/ Sodium (Chloride) 50 mls @ 100 mls/hr IVPB Q12 [facility] PRN Reason: Protocol Stop: 11/02/17 22:42 Last Admin: 10/24/17 23:44 Dose: 100 mls/hr Nifedipine (Procardia Xl) 90 mg PO BID [facility] Oxycodone/Acetaminophen (Percocet 5/325 Mg Tab) 1 tab PO ONCE PRN PRN Reason: pain Stop: 10/27/17 23:11 Pantoprazole Sodium (Protonix Ec Tab) 40 mg PO 0600 [facility] Physical Exam - Constitutional Appears: Non-toxic, Chronically Ill - Head Exam Head Exam: NORMAL INSPECTION - ENT Exam ENT Exam: Mucous Membranes Moist - Neck Exam Neck exam: Negative for: Meningismus - Respiratory Exam Respiratory Exam: absent: Rales, Rhonchi Additional comments: left anterior chest wall with HD catheter in place - Cardiovascular Exam Cardiovascular Exam: +S1, +S2 - GI/Abdominal Exam GI & Abdominal Exam: Soft. absent: Tenderness Results - Vital Signs Recent Vital Signs: Last Vital Signs Temp 97.1 F L 10/24/17 22:38 Pulse 90 10/24/17 22:38 Resp 18 10/24/17 22:38 BP 155/115 H 10/24/17 22:38 Pulse Ox 100 10/24/17 19:24 - Labs Result Diagrams: 10/25/17 08:00 10/25/17 08:00 Assessment & Plan - Assessment and Plan (Free Text) Plan: Assessment Gram negative bacilli bacteremia, suspicious for HD catheter-related bacteremia consider rolando vaginitis HTN ESRD on HD history of hemolytic uremic syndrome chronic anemia S/P kidney transplant history of breast implants Plan Started patient on Merrem pending identification and sensitivities of the gram negative bacilli in the blood; follow up repeat blood cx and will also get doppler U/S of the left upper extremity to rule out DVT will give a dose of Diflucan for the vaginitis will monitor clinically discussed with Dr. Sanford
[2017-10-26] MEDS: Pantoprazole 40 mg EC Tab PO SCH (06:44)
[2017-10-26 07:52] LABS: BASO # 0.01 K/mm3 (0.0-2.0); BASO % 0.2 % (0.0-3.0); EOS # 0.2 (0.0-0.7); GRAN # 4.8 (1.4-6.5); GRAN % 78.9 % (50.0-68.0); HEMOGLOBIN 10.5 g/dL (12.0-16.0); LYMPH # 0.5 (1.2-3.4); LYMPH % 7.9 % (22.0-35.0); MEAN CORPUSCULAR HGB CONC 32.6 g/dl (31.0-37.0); MONO # 0.6 (0.1-0.6); RBC 3.39 10^6/uL (3.5-6.1); RED CELL DISTRIBUTION WIDTH 17.1 % (11.5-14.5); WHITE BLOOD COUNT 6.1 10^3/ul (4.5-11.0)
[2017-10-26 08:12] LABS: ALB/GLOB RATIO 1.2 (1.1-1.8); ALBUMIN 3.7 g/dL (3.0-4.8); CALCIUM 8.3 mg/dL (8.4-10.5)
[2017-10-26] MEDS: Multivitamin Vitamin B Complex (Nephro-Vite) Tab PO SCH (08:30)
[2017-10-26] MEDS ORDERED: Bisacodyl 5mg EC Tab PO ONE (09:05)
--- NOTE | 2017-10-26 10:15 | CP.PCM.PN ---
<Brittanie Guzman - Last Filed: 10/26/17 15:18> Subjective - Date & Time of Evaluation Date of Evaluation: 10/26/17 Time of Evaluation: 07:00 - Subjective Subjective: Progress Note for Hospitalist, Chelo Guzman PGY2 Patient seen and examined at bedside. As per nursing staff there were no acute overnight events. Patient reports having chills and feeling not well during dialysis. It improved after dialysis. Since then she denies chest pain, shortness of breath, nausea/vomiting/diarrhea, fever/chills, weakness, numbness/ tingling. She complains of constipation. Objective - Vital Signs/Intake and Output Vital Signs (last 24 hours): Temp Pulse Resp BP Pulse Ox 98.1 F 89 16 129/94 H 100 10/26/17 00:15 10/26/17 06:44 10/26/17 00:15 10/26/17 06:44 10/26/17 00:15 Intake and Output: 10/26/17 10/26/17 06:59 18:59 Intake Total 700 Balance 700 - Medications Medications: Current Medications Clonidine HCl (Catapres) 0.3 mg PO Q8 [facility] Last Admin: 10/26/17 06:44 Dose: 0.3 mg Doxercalciferol (Hectorol) 2 mcg IVP MOWEFR [facility] Last Admin: 10/25/17 14:07 Dose: 2 mcg Etelcalcetide (Parsabiv) 5 mg IVP [facility] Last Admin: 10/25/17 14:09 Dose: 5 mg Fluconazole (Diflucan) 150 mg PO ONCE ONE PRN Reason: Protocol Stop: 10/28/17 11:01 Heparin Sodium (Porcine) (Heparin) 1,000 units IVP [facility] PRN Reason: Protocol Hydralazine HCl (Apresoline) 25 mg PO Q4 PRN PRN Reason: Other Meropenem 500 mg/ Sodium (Chloride) 50 mls @ 100 mls/hr IVPB Q12 [facility] PRN Reason: Protocol Stop: 11/02/17 22:42 Last Admin: 10/25/17 22:00 Dose: 100 mls/hr Nifedipine (Procardia Xl) 90 mg PO BID [facility] Last Admin: 10/25/17 15:48 Dose: 90 mg Oxycodone/Acetaminophen (Percocet 5/325 Mg Tab) 1 tab PO ONCE PRN PRN Reason: pain Stop: 10/27/17 23:11 Pantoprazole Sodium (Protonix Ec Tab) 40 mg PO 0600 [facility] Last Admin: 10/26/17 06:44 Dose: 40 mg Polyethylene Glycol (Miralax) 17 gm PO BID [facility] Sevelamer HCl (Renagel) 2,400 mg PO TID [facility] Last Admin: 10/25/17 17:51 Dose: 2,400 mg Vitamin B Complex/Vit C/Folic Acid (Nephro-Teresa) 1 tab PO 0800 [facility] Last Admin: 10/26/17 08:30 Dose: 1 tab - Labs Labs: 10/26/17 07:00 10/26/17 07:00 PT 11.8 SECONDS (9.4-12.5) 10/24/17 16:32 INR 1.03 (0.93-1.08) 10/24/17 16:32 APTT 35.4 Seconds (25.1-36.5) 10/24/17 16:32 - Constitutional Appears: No Acute Distress - Head Exam Head Exam: ATRAUMATIC, NORMAL INSPECTION, NORMOCEPHALIC - Eye Exam Eye Exam: Normal appearance, PERRL Pupil Exam: NORMAL ACCOMODATION, PERRL - ENT Exam ENT Exam: Mucous Membranes Moist - Neck Exam Neck Exam: Full ROM, Normal Inspection - Respiratory Exam Respiratory Exam: Clear to Ausculation Bilateral, NORMAL BREATHING PATTERN. absent: Rales, Rhonchi, Wheezes - Cardiovascular Exam Cardiovascular Exam: REGULAR RHYTHM, +S1, +S2. absent: Gallop, Rubs, Murmur - GI/Abdominal Exam GI & Abdominal Exam: Soft, Normal Bowel Sounds. absent: Rigid, Tenderness, Mass , Rebound - Extremities Exam Extremities Exam: Normal Inspection. absent: Calf Tenderness, Pedal Edema - Neurological Exam Neurological Exam: Alert, Awake, CN II-XII Intact, Oriented x3 - Psychiatric Exam Psychiatric exam: Normal Affect, Normal Mood - Skin Skin Exam: Dry, Warm Additional comments: L chest dialysis site in place- clean and dry Assessment and Plan - Assessment and Plan (Free Text) Assessment: This is a 37yo female with past medical history of HTN, failed renal transplant , ESRD on HD MWF, who was admitted for gram negative bactermia most likely secondary to infected dialysis port. Plan: 1. Gram Negative Bacteremia - Most likely secondary to infected permacath - Blood culture from permacath showed Pseudomonas which is sensitive to Merrem - Peripheral blood culture showed no growrth - Echo ordered - Patient on Merrem - ID consulted- recs appreciated - Nephro consulted- recommends to have IR change the permacath on Saturday - CT A/P did not show any sign of infection 2. Vaginal discharge/itching (resolved) - Patient given Diflucan - Will follow up Chlamydia cultures 3. ESRD on HD MWF - Continue HD - Continue Nephrovit - Renagel - Continue medications received during HD as per Nephro 4. Hx of HTN - Continue Clonidine, Procardia - Hydralazine 25mg PO Q4H prn - Will continue to monitor 5. Constipation - Continue Miralax prn - Given one dose dulcolax GI ppx: Protonix DVT ppx: Heparin SC Case seen, discussed and reviewed with attending. Chelo Guzman PGY2 <Mayra Laurent - Last Filed: 10/26/17 15:47> Objective - Vital Signs/Intake and Output Vital Signs (last 24 hours): Temp Pulse Resp BP Pulse Ox 98.1 F 78 16 152/108 H 100 10/26/17 00:15 10/26/17 14:31 10/26/17 00:15 10/26/17 14:31 10/26/17 00:15 Intake and Output: 10/26/17 10/26/17 06:59 18:59 Intake Total 700 Balance 700 - Medications Medications: Current Medications Clonidine HCl (Catapres) 0.3 mg PO Q8 [facility] Last Admin: 10/26/17 14:31 Dose: 0.3 mg [facility]oxercalciferol (Hectorol) [facility] Last Admin: 10/25/17 14:07 Dose: 2 mcg Etelcalcetide (Parsabiv) 5 mg IVP [facility] Last Admin: 10/25/17 14:09 Dose: 5 mg Fluconazole (Diflucan) 150 mg PO ONCE ONE PRN Reason: Protocol Stop: 10/28/17 11:01 Heparin Sodium (Porcine) (Heparin) 1,000 units IVP [facility] PRN Reason: Protocol Hydralazine HCl (Apresoline) 25 mg PO Q4 PRN PRN Reason: Other Meropenem 500 mg/ Sodium (Chloride) 50 mls @ 100 mls/hr IVPB Q12 [facility] PRN Reason: Protocol Stop: 11/02/17 22:42 Last Admin: 10/26/17 13:38 Dose: 100 mls/hr Nifedipine (Procardia Xl) 90 mg PO BID [facility] Last Admin: 10/26/17 13:39 Dose: 90 mg Oxycodone/Acetaminophen (Percocet 5/325 Mg Tab) 1 tab PO ONCE PRN PRN Reason: pain Stop: 10/27/17 23:11 Pantoprazole Sodium (Protonix Ec Tab) 40 mg PO 0600 [facility] Last Admin: 10/26/17 06:44 Dose: 40 mg Polyethylene Glycol (Miralax) 17 gm PO BID [facility] Last Admin: 10/26/17 13:39 Dose: 17 gm Sevelamer HCl (Renagel) 2,400 mg PO TID [facility] Last Admin: 10/26/17 14:28 Dose: Not Given Vitamin B Complex/Vit C/Folic Acid (Nephro-Teresa) 1 tab PO 0800 [facility] Last Admin: 10/26/17 08:30 Dose: 1 tab - Labs Labs: 10/26/17 07:00 10/26/17 07:00 PT 11.8 SECONDS (9.4-12.5) 10/24/17 16:32 INR 1.03 (0.93-1.08) 10/24/17 16:32 APTT 35.4 Seconds (25.1-36.5) 10/24/17 16:32 Attending/Attestation - Attestation I have personally seen and examined this patient.: Yes I have fully participated in the care of the patient.: Yes I have reviewed all pertinent clinical information, including history, physical exam and plan: Yes Notes (Text): 10/26/17 15:45 Medical record note made by the resident after discussion with my direction and input after the patient was personally seen and examined by me. I have reviewed the chart and agree that the record accurately reflects by personal performance of the history, physical exam, data review, and medical decision-making, in the course for the patient. I have also personally directed the plan of care. 37 F with hx of ESRD on hemodialysis (MWF) via permacath, last dialysis wesday chronic anemia, hyperphosphatemia, secondary hyperparathyroidism, hypertension ,H/O renal transplant which is not functional presented with complaints of chills during dialysis and found to have gram negative bacteremia (Pseudomona aeruginosa) CT scan of abdomen and Pelvis is negative for any source of infection.Etiology is due to line sepsis as blood cultures drawn from peripherally are negative. Continue IV antibiotics as per ID.We will follow up Echo. Management plan was discussed in detail with patient. Education was provided. 10/26/17 15:46
--- NOTE | 2017-10-26 10:28 | CP.PCM.PN ---
Subjective - Date & Time of Evaluation Date of Evaluation: 10/26/17 Time of Evaluation: 10:26 - Subjective Subjective: Nephrology Consultation Note: Assessment: critical Sepsis with GNR ? permacath infection Hypertensive Chronic Kidney Disease (I12.0) End stage renal disease (N18.6) dependence on hemodialysis (Z99.2) (MWF) via permacath Anemia (D64.9), Hyperphosphatemia (E83.39), Secondary Hyperparathyroidism (E21.1 ), HTN (I12.0) hx of kidney transplant [id number] hx of SVC reconstruction Plan: HD next on Sat Continue with Nephrovite 1 tab/day. If surveillance cultures remain negative hopefullly can plan on exchange of permacath on saturday and dialysis afterwards Weekly aranesp continue phos binder Continue with hectorol and parsabiv with HD bp meds as ordered discussed w/ primary team s; seen and examined no fevers o/n Physical Examination: General Appearance: Comfortable, in no acute respiratory distress, co-operative . Vitals reviewed and noted as below Head; Atraumatic, normocephalic ENT: no ulcers no thrush. Tongue is midline. Oropharynx: no rash or ulcers. EYES: Pupils are equal, round and reactive to light accommodation. Eye muscles and extraocular movement intact. Sclera is anicteric. Neck; supple no lymphadenopathy, no thyromegaly or bruit. Lungs: Normal respiratory rate/effort. Breath sounds bilateral equal and clear Heart: Normal rate. s1s2 normal. No rub or gallop. chest midline scar noted Extremities: 1-2+ edema. No varicose veins Neurological: Patient is alert, awake and oriented to person, place and time. No focal deficit. Strength bilateral appropriate and equal Skin: Warm and dry. Normal turgor. Palpitation: Normal elasticity for age. petechial non blanching rash around ankle noted Abdomen: Abdomen is soft. Bowel sounds +. There is no abdominal tenderness, no guarding/rigidity or organomegaly, mild tenderness over RLQ renal allograft noted Psych: normal insight and normal affect/mood MSK: no joint tenderness or swelling. Digits and nails normal, no deformity : samish kidney or bladder not palpable Access: left permacath. left avf thrombosed. Labs/imaging reviewed. Past medical history, past surgical history, family history, social history, allergy reviewed and noted as below Family Hx: sister also on HD (pt says due to HUS) rest Non contributory Objective - Vital Signs/Intake and Output Vital Signs (last 24 hours): Temp Pulse Resp BP Pulse Ox 98.1 F 89 16 129/94 H 100 10/26/17 00:15 10/26/17 06:44 10/26/17 00:15 10/26/17 06:44 10/26/17 00:15 Intake and Output: 10/26/17 10/26/17 06:59 18:59 Intake Total 700 Balance 700 - Medications Medications: Current Medications Clonidine HCl (Catapres) 0.3 mg PO Q8 [facility] Last Admin: 10/26/17 06:44 Dose: 0.3 mg Doxercalciferol (Hectorol) 2 mcg IVP MOWEFR [facility] Last Admin: 10/25/17 14:07 Dose: 2 mcg Etelcalcetide (Parsabiv) 5 mg IVP MWF [facility] Last Admin: 10/25/17 14:09 Dose: 5 mg Fluconazole (Diflucan) 150 mg PO ONCE ONE PRN Reason: Protocol Stop: 10/28/17 11:01 Heparin Sodium (Porcine) (Heparin) 1,000 units [place]P [facility] PRN Reason: Protocol Hydralazine HCl (Apresoline) 25 mg PO Q4 PRN PRN Reason: Other Meropenem 500 mg/ Sodium (Chloride) 50 mls @ 100 mls/hr IVPB Q12 [facility] PRN Reason: Protocol Stop: 11/02/17 22:42 Last Admin: 10/25/17 22:00 Dose: 100 mls/hr Nifedipine (Procardia Xl) 90 mg PO BID [facility] Last Admin: 10/25/17 15:48 Dose: 90 mg Oxycodone/Acetaminophen (Percocet 5/325 Mg Tab) 1 tab PO ONCE PRN PRN Reason: pain Stop: 10/27/17 23:11 Pantoprazole Sodium (Protonix Ec Tab) 40 mg PO 0600 [facility] Last Admin: 10/26/17 06:44 Dose: 40 mg Polyethylene Glycol (Miralax) 17 gm PO BID [facility] Sevelamer HCl (Renagel) 2,400 mg PO TID [facility] Last Admin: 10/25/17 17:51 Dose: 2,400 mg Vitamin B Complex/Vit C/Folic Acid (Nephro-Teresa) 1 tab PO 0800 [facility] Last Admin: 10/26/17 08:30 Dose: 1 tab - Labs Labs: 10/26/17 07:00 10/26/17 07:00 PT 11.8 SECONDS (9.4-12.5) 10/24/17 16:32 INR 1.03 (0.93-1.08) 10/24/17 16:32 APTT 35.4 Seconds (25.1-36.5) 10/24/17 16:32
[2017-10-26] MEDS: POLYETHYLENE GLYCOL 3350 17 GM/Dose PACKET PO SCH ×3 (11:22→18:30)
[2017-10-26] MEDS: Meropenem 500 MG in Sodium Chloride 0.9% 50 ML IVPB SCH ×2 (13:38→22:28)
[2017-10-26] MEDS: NIFEdipine 90 mg ER Tab PO SCH ×2 (13:39→18:27)
--- NOTE | 2017-10-26 19:07 | PN ---
DATE: 10/26/2017 LOCATION: The patient is in room 571, bed 2. PHYSICAL EXAMINATION: GENERAL: On exam, the patient is in bed, in no acute distress. VITAL SIGNS: Temperature of 98, blood pressure is 120/90, respiratory rate of 18, heart rate of 92. HEENT: Examination of HEENT is unremarkable. NECK: Supple. LUNGS: Have decreased breath sounds. HEART: Normal S1 and S2. ABDOMEN: Soft, nontender. LABORATORY DATA: Laboratory examination reveals a white count of 6.1, hemoglobin of 10. Chemistries reveals a BUN of 31, creatinine of 6.5. HIV is negative. Microbiology reveals the blood cultures are no growth. ASSESSMENT AND PLAN: A 37-year-old female who was seen early this morning in 571, bed 2 with end-stage renal disease, on hemodialysis and hemolytic uremic syndrome; chronic anemia; kidney transplant; history of breast implants. Complained of chills and during dialysis, she states she had same chills. The patient's blood cultures, repeat cultures are no growth. The initial ones from the 10/23/2017, blood cultures from the 10/23/2017 dialysis grew pseudomonas. Sensitive for meropenem and cefepime and Cipro with pseudomonas in the blood cultures and the patient did have leukopenia with white count of 3.5 and has a pulse of 92, 96 and 90. She does have sepsis with pseudomonas bacteremia. May require changes of access with a negative CAT scan of the abdomen and pelvis. Currently, on , meropenem. Raffy Reddy MD
--- NOTE | 2017-10-26 23:27 | CARD ---
APPROVED REPORT EXAM: Two-dimensional and M-mode echocardiogram with Doppler and color Doppler. INDICATION 2D DIMENSIONS IVSd1.3 (0.7-1.1cm)LVDd4.5 (3.9-5.9cm) PWd1.3 (0.7-1.1cm)LVDs3.8 (2.5-4.0cm) FS (%) 15.0 %LVEF (%)31.9 (>50%) M-Mode DIMENSIONS Left Atrium (MM)4.80 (2.5-4.0cm)Aortic Root3.00 (2.2-3.7cm) Aortic Cusp Exc.1.80 (1.5-2.0cm) Aortic Valve AoV Peak Sikxgjiq562.0cm/Anusha Peak GR.5mmHg Mitral Valve MV E Zcaepncz468.0cm/sMV E Peak Gr.113mmHgE/A ratio0.0 TDI Lateral E' Peak V5.68cm/sMedial E' Peak V5.18cm/sE/Lateral E'25.0 E/Medial E'27.4 Tricuspid Valve TR Peak [id number]/sRAP [id number] Peak Gr.50mmHg [id number] LEFT VENTRICLE The left ventricle is normal size. There is mild concentric left ventricular hypertrophy. The systolic function is severely impaired. There is global hypokinesis of the left ventricle. Spontaneous contrast is noted consistent with the low flow state. RIGHT VENTRICLE The right ventricle is normal size. There is normal right ventricular wall thickness. RV Systolic function is severely reduced. ATRIA The left atrium is severely dilated. The right atrium is moderately dilated. There is a catheter tip seen in the right atrium. AORTIC VALVE The aortic valve is normal in structure. No aortic regurgitation is present. There is no aortic valvular stenosis. MITRAL VALVE The mitral valve is mildly thickened. Mitral regurgitation is severe. TRICUSPID VALVE There is severe tricuspid regurgitation. There is severe pulmonary hypertension. GREAT VESSELS The aortic root is normal in size. The IVC collapses <50% with inspiration. <Conclusion> The left ventricle is normal size. There is mild concentric left ventricular hypertrophy. The systolic function is severely impaired. There is global hypokinesis of the left ventricle. Spontaneous contrast is noted consistent with the low flow state. RV Systolic function is severely reduced. Mitral regurgitation is severe. There is severe tricuspid regurgitation. There is severe pulmonary hypertension.
[2017-10-26] MEDS ORDERED: DiphenhydrAMINE 50 mg/ml Inj IVP STA (23:29)
[2017-10-27] MEDS: Pantoprazole 40 mg EC Tab PO SCH (06:24)
[2017-10-27 08:11] LABS: BASO # 0.01 K/mm3 (0.0-2.0); BASO % 0.2 % (0.0-3.0); EOS # 0.2 (0.0-0.7); EOS % 4.5 % (1.5-5.0); GRAN # 3.76 (1.4-6.5); GRAN % 73.4 % (50.0-68.0); HEMOGLOBIN 9.4 g/dL (12.0-16.0); LYMPH # 0.7 (1.2-3.4); LYMPH % 13.9 % (22.0-35.0); MEAN CORPUSCULAR HEMOGLOBIN 31.2 pg (25.0-35.0); MEAN CORPUSCULAR HGB CONC 33.2 g/dl (31.0-37.0); MEAN PLATELET VOLUME 10.6 fl (7.0-11.0); MONO # 0.4 (0.1-0.6); RBC 3.01 10^6/uL (3.5-6.1); RED CELL DISTRIBUTION WIDTH 16.8 % (11.5-14.5); WHITE BLOOD COUNT 5.1 10^3/ul (4.5-11.0)
[2017-10-27 09:15] LABS: ALB/GLOB RATIO 1.2 (1.1-1.8); ALBUMIN 3.9 g/dL (3.0-4.8); CALCIUM 8.4 mg/dL (8.4-10.5)
--- NOTE | 2017-10-27 09:25 | CP.PCM.PN ---
<Brittanie Guzman - Last Filed: 10/27/17 09:22> Subjective - Date & Time of Evaluation Date of Evaluation: 10/27/17 Time of Evaluation: 09:22 - Subjective Subjective: Progress Note for Hospitalist, Chelo Guzman PGY2 Patient seen and examined at bedside. Last night patient reports diffuse itching without any evidence of rash. There were no changes in her medication. She was given Benadryl which relieved the itching. Otherwise, she feels well and denies chest pain, shortness of breath, nausea/vomiting/diarrhea, fever/ chills, numbness/tingling. Objective - Vital Signs/Intake and Output Vital Signs (last 24 hours): Temp Pulse Resp BP Pulse Ox 98.3 F 94 H 20 127/88 100 10/27/17 08:07 10/27/17 08:07 10/27/17 08:07 10/27/17 08:07 10/27/17 08:07 Intake and Output: 10/27/17 10/27/17 06:59 18:59 Intake Total 240 Balance 240 - Medications Medications: Current Medications Clonidine HCl (Catapres) 0.3 mg PO Q8 [facility] OF [facility] Last Admin: 10/27/17 06:23 Dose: 0.3 mg Doxercalciferol (Hectorol) 2 mcg IVP MOWEFR ON [facility] OF [facility] Last Admin: 10/25/17 14:07 Dose: 2 mcg Etelcalcetide (Parsabiv) 5 mg IVP F ON [facility] OF [facility] Last Admin: 10/25/17 14:09 Dose: 5 mg Fluconazole (Diflucan) 150 mg PO ONCE ONE PRN Reason: Protocol Stop: 10/28/17 11:01 Heparin Sodium (Porcine) (Heparin) 1,000 units IVP [facility] PRN Reason: Protocol Hydralazine HCl (Apresoline) 25 mg PO Q4 PRN PRN Reason: Other Meropenem 500 mg/ Sodium (Chloride) 50 mls @ 100 mls/hr IVPB Q12 ON [facility] OF [facility] PRN Reason: Protocol Stop: 11/02/17 22:42 Last Admin: 10/26/17 22:28 Dose: 100 mls/hr Lisinopril (Zestril) 5 mg PO DAILY ON [facility] OF [facility] Nifedipine (Procardia Xl) 90 mg PO BID ON [facility] OF [facility] Last Admin: 10/26/17 18:27 Dose: 90 mg Oxycodone/Acetaminophen (Percocet 5/325 Mg Tab) 1 tab PO ONCE PRN PRN Reason: pain Stop: 10/27/17 23:11 Pantoprazole Sodium (Protonix Ec Tab) 40 mg PO 0600 ON [facility] Last Admin: 10/27/17 06:24 Dose: 40 mg Polyethylene Glycol (Miralax) 17 gm PO BID ON [facility] Last Admin: 10/26/17 18:30 Dose: Not Given Sevelamer HCl (Renagel) 2,400 mg PO TID ON [facility] OF [facility] Last Admin: 10/26/17 18:27 Dose: 2,400 mg Vitamin B Complex/Vit C/Folic Acid (Nephro-Teresa) 1 tab PO 0800 ON [facility] OF [facility] Last Admin: 10/26/17 08:30 Dose: 1 tab - Labs Labs: 10/27/17 07:30 10/27/17 07:30 PT 11.8 SECONDS (9.4-12.5) 10/24/17 16:32 INR 1.03 (0.93-1.08) 10/24/17 16:32 APTT 35.4 Seconds (25.1-36.5) 10/24/17 16:32 - Constitutional Appears: No Acute Distress - Head Exam Head Exam: ATRAUMATIC, NORMAL INSPECTION, NORMOCEPHALIC - Eye Exam Eye Exam: Normal appearance, PERRL Pupil Exam: NORMAL ACCOMODATION - ENT Exam ENT Exam: Mucous Membranes Moist - Neck Exam Neck Exam: Full ROM - Respiratory Exam Respiratory Exam: Clear to Ausculation Bilateral, NORMAL BREATHING PATTERN. absent: Rales, Rhonchi, Wheezes - Cardiovascular Exam Cardiovascular Exam: REGULAR RHYTHM, +S1, +S2. absent: Tachycardia, Gallop, Rubs, Murmur - GI/Abdominal Exam GI & Abdominal Exam: Soft, Normal Bowel Sounds. absent: Rigid, Tenderness, Mass , Rebound - Extremities Exam Extremities Exam: Normal Inspection. absent: Calf Tenderness, Pedal Edema Additional comments: Cyst on L anterior foot - Neurological Exam Neurological Exam: Alert, Awake, CN II-XII Intact, Oriented x3 - Psychiatric Exam Psychiatric exam: Normal Affect, Normal Mood - Skin Skin Exam: Dry, Intact, Warm. absent: Rash Additional comments: L sided permacath in place- clean and dry Assessment and Plan - Assessment and Plan (Free Text) Assessment: This is a 37yo female with past medical history of HTN, failed renal transplant , ESRD on HD MWF, who was admitted for pseudomonas bactermia most likely secondary to infected permacath. Patient was also found to have cardiomyopathy on Echo. Plan: 1. Pseudomonas Bacteremia - Most likely secondary to infected permacath - afebrile, no leukocytosis - Blood culture from permacath showed Pseudomonas which is sensitive to Merrem - Peripheral blood culture showed no growrth - CT A/P did not show any sign of infection - Echo showed cardiomyopathy, but no vegetation or thrombus - ID consulted- recs appreciated - Continue Merrem - Nephro consulted- recommends to have IR change the permacath on Saturday - Will get U/S of L upper extremity to rule out thrombus 2. Cardiomyopathy - Echo showed EF 30% with severe LV and RV dysfunction and severe TR and pulm HTN - Cardio consulted- will follow up recs - Patient transferred to telemetry floor - TIERA-inhibitor (Lisinopril) added - Consider changing Clonidine to Beta- Amara 3. ESRD on HD MWF - Will have catheter changed tomorrow then continue regular HD schedule - Continue Nephrovit abd - Continue meds during HD as per Nephro 4. Hx of HTN - Continue Clonidine, Procardia - Lisinopril added - Hydralazine 25mg PO Q4H prn 5. Vaginal discharge/itching (resolved) - Patient given Diflucan - Will follow up Chlamydia cultures 6. Constipation - Continue Miralax prn GI ppx: Protonix DVT ppx: Heparin SC Case seen, discussed and reviewed with attending. Chelo Guzman PGY2 <Mayra Laurent - Last Filed: 10/27/17 17:11> Objective - Vital Signs/Intake and Output Vital Signs (last 24 hours): Temp Pulse Resp BP Pulse Ox 98.3 F 85 20 160/111 H 100 10/27/17 08:07 10/27/17 15:11 10/27/17 08:07 10/27/17 15:11 10/27/17 08:07 Intake and Output: 10/27/17 10/27/17 06:59 18:59 Intake Total 240 540 Balance 240 540 - Medications Medications: Current Medications Clonidine HCl (Catapres) 0.3 mg PO Q8 [facility] Last Admin: 10/27/17 15:11 Dose: 0.3 mg Diphenhydramine HCl (Benadryl) 25 mg IVP BID PRN PRN Reason: Itching / Pruritus Doxercalciferol (Hectorol) 2 mcg IVP MOWEFR ON [facility] Last Admin: 10/25/17 14:07 Dose: 2 mcg Etelcalcetide (Parsabiv) 5 mg IVP [facility] Last Admin: 10/25/17 14:09 Dose: 5 mg Fluconazole (Diflucan) 150 mg PO ONCE ONE PRN Reason: Protocol Stop: 10/28/17 11:01 Heparin Sodium (Porcine) (Heparin) 1,000 units IVP [facility] PRN Reason: Protocol Hydralazine HCl (Apresoline) 25 mg PO Q4 PRN PRN Reason: Other Meropenem 500 mg/ Sodium (Chloride) 50 mls @ 100 mls/hr IVPB Q12 ON [facility] PRN Reason: Protocol Stop: 11/02/17 22:42 Last Admin: 10/27/17 10:47 Dose: 100 mls/hr Lisinopril (Zestril) 5 mg PO DAILY ON [facility] Last Admin: 10/27/17 10:48 Dose: 5 mg Nifedipine (Procardia Xl) 90 mg PO BID ON [facility] Last Admin: 10/27/17 10:48 Dose: 90 mg Oxycodone/Acetaminophen (Percocet 5/325 Mg Tab) 1 tab PO ONCE PRN PRN Reason: pain Stop: 10/27/17 23:11 Pantoprazole Sodium (Protonix Ec Tab) 40 mg PO 0600 ON [facility] Last Admin: 10/27/17 06:24 Dose: 40 mg Polyethylene Glycol (Miralax) 17 gm PO BID ON [facility] Last Admin: 10/27/17 10:49 Dose: Not Given Sevelamer HCl (Renagel) 2,400 mg PO TID ON [facility] Last Admin: 10/27/17 15:38 Dose: Not Given Vitamin B Complex/Vit C/Folic Acid (Nephro-Teresa) 1 tab PO 0800 ON [facility] Last Admin: 10/27/17 10:47 Dose: 1 tab - Labs Labs: 10/27/17 07:30 10/27/17 07:30 PT 11.8 SECONDS (9.4-12.5) 10/24/17 16:32 INR 1.03 (0.93-1.08) 10/24/17 16:32 APTT 35.4 Seconds (25.1-36.5) 10/24/17 16:32 Attending/Attestation - Attestation I have personally seen and examined this patient.: Yes I have fully participated in the care of the patient.: Yes I have reviewed all pertinent clinical information, including history, physical exam and plan: Yes Notes (Text): 10/27/17 17:10 Medical record note made by the resident after discussion with my direction and input after the patient was personally seen and examined by me. I have reviewed the chart and agree that the record accurately reflects by personal performance of the history, physical exam, data review, and medical decision-making, in the course for the patient. I have also personally directed the plan of care. 37 F with hx of ESRD on hemodialysis (MWF) via permacath, last dialysis chronic anemia, hyperphosphatemia, secondary hyperparathyroidism, hypertension ,H/O renal transplant which is not functional presented with complaints of chills during dialysis and found to have gram negative bacteremia (Pseudomona aeruginosa) CT scan of abdomen and Pelvis is negative for any source of infection. Etiology is due to line sepsis, Plan for removal of catheter by IR on Saturday .Echo showed EF 30%, cardiology is consulted Management plan was discussed in detail with patient. Education was provided.
[2017-10-27] MEDS: Meropenem 500 MG in Sodium Chloride 0.9% 50 ML IVPB SCH ×2 (10:47→22:22)
[2017-10-27] MEDS: Multivitamin Vitamin B Complex (Nephro-Vite) Tab PO SCH (10:47)
[2017-10-27] MEDS: NIFEdipine 90 mg ER Tab PO SCH ×3 (10:48→20:56)
[2017-10-27] MEDS: POLYETHYLENE GLYCOL 3350 17 GM/Dose PACKET PO SCH ×2 (10:49→18:00)
[2017-10-27] MEDS ORDERED: DiphenhydrAMINE 50 mg/ml Inj IVP PRN (11:43)
--- NOTE | 2017-10-27 14:18 | CP.PCM.PN ---
Subjective - Date & Time of Evaluation Date of Evaluation: 10/27/17 Time of Evaluation: 14:15 - Subjective Subjective: Nephrology Consultation Note: Assessment: critical Sepsis with GNR ? permacath infection Hypertensive Chronic Kidney Disease (I12.0) End stage renal disease (N18.6) dependence on hemodialysis (Z99.2) (MWF) via permacath Anemia (D64.9), Hyperphosphatemia (E83.39), Secondary Hyperparathyroidism (E21.1 ), HTN (I12.0) hx of kidney transplant [id number] hx of SVC reconstruction Plan: HD next on Sat Continue with Nephrovite 1 tab/day. Surveillance cultures negative. For permacath exchange tomorrow consider cardiac eval re: echo findings continue phos binder Continue with hectorol and parsabiv with HD bp meds as ordered discussed w/ primary team s: seen and examined no fevers, worried about the procedure to exchange cathether Physical Examination: General Appearance: Comfortable, in no acute respiratory distress, co-operative . Vitals reviewed and noted as below Head; Atraumatic, normocephalic ENT: no ulcers no thrush. Tongue is midline. Oropharynx: no rash or ulcers. EYES: Pupils are equal, round and reactive to light accommodation. Eye muscles and extraocular movement intact. Sclera is anicteric. Neck; supple no lymphadenopathy, no thyromegaly or bruit. Lungs: Normal respiratory rate/effort. Breath sounds bilateral equal and clear Heart: Normal rate. s1s2 normal. No rub or gallop. chest midline scar noted Extremities: 1-2+ edema. No varicose veins Neurological: Patient is alert, awake and oriented to person, place and time. No focal deficit. Strength bilateral appropriate and equal Skin: Warm and dry. Normal turgor. Palpitation: Normal elasticity for age. petechial non blanching rash around ankle noted Abdomen: Abdomen is soft. Bowel sounds +. There is no abdominal tenderness, no guarding/rigidity or organomegaly, mild tenderness over RLQ renal allograft noted Psych: normal insight and normal affect/mood MSK: no joint tenderness or swelling. Digits and nails normal, no deformity : [place] kidney or bladder not palpable Access: left permacath. left avf thrombosed. Labs/imaging reviewed. Past medical history, past surgical history, family history, social history, allergy reviewed and noted as below Family Hx: sister also on HD (pt says due to HUS) rest Non contributory Objective - Vital Signs/Intake and Output Vital Signs (last 24 hours): Temp Pulse Resp BP Pulse Ox 98.3 F 94 H 20 127/88 100 10/27/17 08:07 10/27/17 10:48 10/27/17 08:07 10/27/17 10:48 10/27/17 08:07 Intake and Output: 10/27/17 10/27/17 06:59 18:59 Intake Total 240 Balance 240 - Medications Medications: Current Medications Clonidine HCl (Catapres) 0.3 mg PO Q8 [facility] Last Admin: 10/27/17 06:23 Dose: 0.3 mg Diphenhydramine HCl (Benadryl) 25 mg IVP BID PRN PRN Reason: Itching / Pruritus Doxercalciferol (Hectorol) 2 mcg IVP MOWEFR [facility] Last Admin: 10/25/17 14:07 Dose: 2 mcg Etelcalcetide (Parsabiv) 5 mg IVP MWF [facility] Last Admin: 10/25/17 14:09 Dose: 5 mg Fluconazole (Diflucan) 150 mg PO ONCE ONE PRN Reason: Protocol Stop: 10/28/17 11:01 Heparin Sodium (Porcine) (Heparin) 1,000 units IVP [facility] PRN Reason: Protocol Hydralazine HCl (Apresoline) 25 mg PO Q4 PRN PRN Reason: Other Meropenem 500 mg/ Sodium (Chloride) 50 mls @ 100 mls/hr IVPB Q12 [facility] PRN Reason: Protocol Stop: 11/02/17 22:42 Last Admin: 10/27/17 10:47 Dose: 100 mls/hr Lisinopril (Zestril) 5 mg PO DAILY [facility] Last Admin: 10/27/17 10:48 Dose: 5 mg Nifedipine (Procardia Xl) 90 mg PO BID [facility] Last Admin: 10/27/17 10:48 Dose: 90 mg Oxycodone/Acetaminophen (Percocet 5/325 Mg Tab) 1 tab PO ONCE PRN PRN Reason: pain Stop: 10/27/17 23:11 Pantoprazole Sodium (Protonix Ec Tab) 40 mg PO 0600 [facility] Last Admin: 10/27/17 06:24 Dose: 40 mg Polyethylene Glycol (Miralax) 17 gm PO BID [facility] Last Admin: 10/27/17 10:49 Dose: Not Given Sevelamer HCl (Renagel) 2,400 mg PO TID [facility] Last Admin: 10/27/17 10:48 Dose: 2,400 mg Vitamin B Complex/Vit C/Folic Acid (Nephro-Teresa) 1 tab PO 0800 [facility] Last Admin: 10/27/17 10:47 Dose: 1 tab - Labs Labs: 10/27/17 07:30 10/27/17 07:30 PT 11.8 SECONDS (9.4-12.5) 10/24/17 16:32 INR 1.03 (0.93-1.08) 10/24/17 16:32 APTT 35.4 Seconds (25.1-36.5) 10/24/17 16:32
--- NOTE | 2017-10-27 20:50 | US ---
PROCEDURE: Left upper extremity venous ultrasound HISTORY: Arm pain and swelling. Evaluate for deep venous thrombosis. PHYSICIAN(S): Jamir Luz MD. FINDINGS: The visualized leftinternal jugular vein is sonographically normal and compressible. No evidence of obstruction or thrombus is seen. The visualized segments of the left subclavian vein are patent with normal waveforms. No sonographic evidence of obstruction or thrombosis is seen. The visualized deep venous system of the proximal leftupper extremity is sonographically normal and compressible. There is occlusive superficial thrombophlebitis in the left cephalic vein above the elbow IMPRESSION: 1. No sonographic evidence for deep venous thrombosis in the visualized segments of the left upper extremity. 2. Left cephalic vein superficial thrombophlebitis
--- NOTE | 2017-10-27 21:55 | CP.PCM.PN ---
Subjective - Date & Time of Evaluation Date of Evaluation: 10/27/17 Time of Evaluation: 20:00 - Subjective Subjective: PGY-[address] Laurent CC: "why transfer me to tele?" S: Ms Murillo, 37 F with hx of ESRD on hemodialysis (MWF) via permacath, last dialysis saturday with chronic anemia, hyperphosphatemia, secondary hyperparathyroidism, hypertension ,H/O renal transplant which is not functional , and H/O HUS s/p delivery of her son was found to have Pseudomona aeruginosa bacteremia likely from the permacath leading to line sepsis. CT scan of abdomen and Pelvis is negative for any source of infection. Echo showed EF 30%, primary team plans to upgrade pt to telemetry for severe cardiomyopathy. Pt still complains of vaginal discharge. Vaginal culture was sent pending result. Pt still complains of vaginal discharge. O: VS stable AAOx3 NAD A/P: Risk of AMA Vaginal discharge - Defer to primary team to follow up with vaginal culture result - Printed labs and echo results and explained to patient why continual ABX managment and telemetry was necessary - pt agreed to continual treatmeent and upgrade Objective - Vital Signs/Intake and Output Vital Signs (last 24 hours): Temp Pulse Resp BP Pulse Ox 98.3 F 86 20 168/122 H 100 10/27/17 08:07 10/27/17 17:49 10/27/17 08:07 10/27/17 17:49 10/27/17 08:07 Intake and Output: 10/27/17 10/28/17 18:59 06:59 Intake Total 540 Balance 540 - Medications Medications: Current Medications Clonidine HCl (Catapres) 0.3 mg PO Q8 [facility] Last Admin: 10/27/17 15:11 Dose: 0.3 mg Diphenhydramine HCl (Benadryl) 50 mg IVP BID PRN PRN Reason: Allergy symptoms Doxercalciferol (Hectorol) 2 mcg IVP MOWEFR [facility] Last Admin: 10/25/17 14:07 Dose: 2 mcg Etelcalcetide (Parsabiv) 5 mg IVP MWF [facility] Last Admin: 10/25/17 14:09 Dose: 5 mg Fluconazole (Diflucan) 150 mg PO ONCE ONE PRN Reason: Protocol Stop: 10/28/17 11:01 Heparin Sodium (Porcine) (Heparin) 1,000 units IVP MWF [facility] PRN Reason: Protocol Hydralazine HCl (Apresoline) 25 mg PO Q4 PRN PRN Reason: Other Last Admin: 10/27/17 17:49 Dose: 25 mg Meropenem 500 mg/ Sodium (Chloride) 50 mls @ 100 mls/hr IVPB Q12 [facility] PRN Reason: Protocol Stop: 11/02/17 22:42 Last Admin: 10/27/17 10:47 Dose: 100 mls/hr Lisinopril (Zestril) 5 mg PO DAILY [facility] Last Admin: 10/27/17 10:48 Dose: 5 mg Nifedipine (Procardia Xl) 90 mg PO BID [facility] Last Admin: 10/27/17 20:56 Dose: 90 mg Oxycodone/Acetaminophen (Percocet 5/325 Mg Tab) 1 tab PO ONCE PRN PRN Reason: pain Stop: 10/27/17 23:11 Pantoprazole Sodium (Protonix Ec Tab) 40 mg PO 0600 [facility] Last Admin: 10/27/17 06:24 Dose: 40 mg Polyethylene Glycol (Miralax) 17 gm PO BID [facility] Last Admin: 10/27/17 18:00 Dose: Not Given Sevelamer HCl (Renagel) 2,400 mg PO TID [facility] Last Admin: 10/27/17 17:49 Dose: 2,400 mg Vitamin B Complex/Vit C/Folic Acid (Nephro-Teresa) 1 tab PO 0800 [facility] Last Admin: 10/27/17 10:47 Dose: 1 tab - Labs Labs: 10/27/17 07:30 10/27/17 07:30 PT 11.8 SECONDS (9.4-12.5) 10/24/17 16:32 INR 1.03 (0.93-1.08) 10/24/17 16:32 APTT 35.4 Seconds (25.1-36.5) 10/24/17 16:32
[2017-10-27] MEDS: DiphenhydrAMINE 50 mg/ml Inj IVP PRN (22:23)
--- NOTE | 2017-10-27 23:22 | PN ---
DATE: 10/27/2017 SUBJECTIVE: The patient is in bed. No acute distress. Nontoxic. No fevers. No chills. Patient was seen earlier this morning and doing better. PHYSICAL EXAMINATION: VITAL SIGNS: Temperature is 98, her chills have resolved with blood pressure 160/100, respiratory rate of 20, heart rate of 93. HEENT: Unremarkable. NECK: Supple. LUNGS: Have decreased breath sounds. HEART: Normal S1, S2. ABDOMEN: Soft, nontender. LABORATORY DATA: Reveals the white count of 5.1, hemoglobin of 9, platelets of 98. Chemistries reveals the BUN of 44, creatinine of 9 and HIV is negative. Microbiology reveals the blood cultures from 10/24/2017 are negative. The blood cultures from 10/23/2017 have grown pseudomonas, it is sensitive to Cipro, but the patient has developed an allergy to Cipro. She states lips swelled up and she has difficulty breathing on Cipro. Review of orders reveals the patient to be on meropenem. Patient had an echo read by Dr. Thrasher mention of vegetations. ASSESSMENT AND PLAN: This is a 37-year-old female who was seen earlier this morning, doing much better, with end-stage renal disease on hemodialysis secondary to hemolytic uremic syndrome, post , had a chronic anemia, had a kidney transplant, which after 10 years failed with breast implants and now with pseudomonas bacteremia, endocarditis, consider transesophageal echocardiography. Currently on meropenem. Repeat cultures are negative. Removal of the catheter. Should have ultrasound of the upper extremities and subclavian, rule out thrombosis. Case discussed with Dr. Mayra Laurent and resident in charge and nursing staff. Raffy Reddy MD
--- NOTE | 2017-10-28 01:14 | CON ---
DATE: CARDIOLOGY CONSULTATION REASON FOR CONSULTATION: Hemodialysis access infection. HISTORY OF PRESENT ILLNESS: The patient is a 37-year-old female who has an extensive medical history. The patient in 2000 developed cardiomyopathy followed by renal insufficiency, has required hemodialysis until 2005 when she received the kidney transplant that was working until 2016. Following that, the patient was placed back on hemodialysis. In 2004, one year before the transplant, the patient required thoracotomy for superior vena cava reconstruction. The patient is being followed by a engineer operations and maintenance at [facility]. She does receive hemodialysis here at [facility]. The most recent workup showed on the 10/23 responsive for Pseudomonas aeruginosa. The patient has a history of congestive heart failure and is on nasal O2 at home, and she is experiencing orthopnea. SOCIAL HISTORY: Patient is a former smoker. MEDICATIONS: Hydralazine 25 mg every 4 hours p.r.n., Benadryl 25 mg intravenously p.r.n. for itchiness, clonidine 0.1 mg p.o. p.r.n. for systolic blood pressure above 190, clonidine 0.3 mg p.o. every 8 hours, Diflucan 150 mg once a day, heparin 1000 units intravenously Saturday, Saturday and Saturday with hemodialysis; meropenem 500 mg intravenously every 12 hours, Procardia XL 90 mg once a day, Renagel 2.4 g p.o. t.i.d., 5 mg once a day. REVIEW OF SYSTEMS: No dizziness or syncope. No retrosternal chest pain. No history of coronary intervention in the past. PHYSICAL EXAMINATION: GENERAL: The patient is a middle-aged female who is mildly tachypneic, but does not appear to be in acute distress. VITAL SIGNS: Blood pressure 127/88, heart rate 94, temperature 98.3, respirations 20. HEENT: Pale conjunctivae. CHEST: Scattered bilateral rhonchi. HEART: S1 and S2 regular. ABDOMEN: Soft. EXTREMITIES: Nonpitting edema. LABORATORY DATA: Chest x-ray revealed cardiomegaly with prominent bronchovascular markings, sternotomy wires were noted as well as hemodialysis access as well as hemodialysis catheter. Echocardiographic study revealed mild concentric LVH with severely impaired systolic functions, global hypokinesis, with spontaneous contrast consistent with low-flow state with severely reduced right ventricular systolic function and severe pulmonary hypertension. EKG revealed sinus rhythm, possibly left atrial enlargement and prolonged QT interval. Abdomen and pelvic CT scan; mild hepatosplenomegaly and fatty liver, atrophic [place] kidneys and nonperfused right lower quadrant renal transplant. ASSESSMENT: 1. Biventricular failure. 2. Pseudomonas aeruginosa bacteremia. 3. Spontaneous echo contrast noted in both the left ventricle and left atrium, consistent with low-flow state. 4. Severe pulmonary hypertension. RECOMMENDATIONS: Continue current hydralazine 25 mg every 4 hours. Continue Clonidine 0.3 mg every 8 hours. Continue intravenous heparin 1000 units with hemodialysis. Continue IV meropenem at 500 mg q. 12 hours, Procardia XL at 90 mg twice a day, and 5 mg once a day. The patient is planned to have her hemodialysis catheter replaced. No invasive cardiac workup is justified at this time in view of gram-negative bacteremia. The first approach will be to achieve more negative balance with the next hemodialysis. Consider placing the patient on full anticoagulation regimen following the hemodialysis catheter replacement. The case was discussed with the hospitalist. Bhargav Thrasher MD
[2017-10-28] MEDS: Pantoprazole 40 mg EC Tab PO SCH (06:36)
[2017-10-28] MEDS: Multivitamin Vitamin B Complex (Nephro-Vite) Tab PO SCH (08:55)
[2017-10-28] MEDS: NIFEdipine 90 mg ER Tab PO SCH (10:09)
[2017-10-28] MEDS: POLYETHYLENE GLYCOL 3350 17 GM/Dose PACKET PO SCH ×2 (10:10→10:18)
[2017-10-28] MEDS: Meropenem 500 MG in Sodium Chloride 0.9% 50 ML IVPB SCH ×2 (10:14→23:15)
[2017-10-28] MEDS: DiphenhydrAMINE 50 mg/ml Inj IVP PRN (10:14)
[2017-10-28] MEDS ORDERED: Midazolam 2 MG/2 ML VIAL ONE ×4 (11:44→13:39)
[2017-10-28] MEDS ORDERED: Lidocaine 2% Inj (20ml) ONE (11:44)
--- NOTE | 2017-10-28 11:50 | CP.PCM.PN ---
<Kaia Tena - Last Filed: 10/28/17 13:44> Subjective - Date & Time of Evaluation Date of Evaluation: 10/28/17 Time of Evaluation: 11:47 - Subjective Subjective: Internal Medicine Progress Note: Patient seen and examined at bedside. Per nursing no acute events overnight. Patient going for dialysis catheter exchange today then dialysis to follow. States that she is still having vaginal discharge, itchiness improved. Denies headaches, dizziness, cp, palpitations, sob, abdominal pain, changes in bowel habits. Objective - Vital Signs/Intake and Output Vital Signs (last 24 hours): Temp Pulse Resp BP Pulse Ox 98.3 F 85 18 121/79 99 10/28/17 06:00 10/28/17 10:09 10/28/17 06:00 10/28/17 10:09 10/28/17 06:00 - Medications Medications: Current Medications Clonidine HCl (Catapres) 0.3 mg PO Q8 [facility] Last Admin: 10/28/17 07:49 Dose: Not Given Diphenhydramine HCl (Benadryl) 50 mg IVP BID PRN PRN Reason: Allergy symptoms Last Admin: 10/28/17 10:14 Dose: 50 mg Doxercalciferol (Hectorol) 2 mcg IVP MOWEFR [facility] Last Admin: 10/25/17 14:07 Dose: 2 mcg Etelcalcetide (Parsabiv) 5 mg IVP MWF [facility] Last Admin: 10/25/17 14:09 Dose: 5 mg Heparin Sodium (Porcine) (Heparin) 1,000 units IVP [facility] PRN Reason: Protocol Last Admin: 10/28/17 10:21 Dose: Not Given Hydralazine HCl (Apresoline) 25 mg PO Q4 PRN PRN Reason: Other Last Admin: 10/27/17 17:49 Dose: 25 mg Meropenem 500 mg/ Sodium (Chloride) 50 mls @ 100 mls/hr IVPB Q12 [facility] PRN Reason: Protocol Stop: 11/02/17 22:42 Last Admin: 10/28/17 10:14 Dose: 100 mls/hr Lisinopril (Zestril) 5 mg PO DAILY [facility] Last Admin: 10/28/17 10:09 Dose: 5 mg Nifedipine (Procardia Xl) 90 mg PO BID [facility] Last Admin: 10/28/17 10:09 Dose: 90 mg Pantoprazole Sodium (Protonix Ec Tab) 40 mg PO 0600 [facility] Last Admin: 10/28/17 06:36 Dose: 40 mg Polyethylene Glycol (Miralax) 17 gm PO BID [facility] Last Admin: 10/28/17 10:18 Dose: Not Given Sevelamer HCl (Renagel) 2,400 mg PO TID [facility] Last Admin: 10/28/17 09:00 Dose: 2,400 mg Vitamin B Complex/Vit C/Folic Acid (Nephro-Teresa) 1 tab PO 0800 [facility] Last Admin: 10/28/17 08:55 Dose: 1 tab - Labs Labs: 10/27/17 07:30 10/27/17 07:30 PT 11.8 SECONDS (9.4-12.5) 10/24/17 16:32 INR 1.03 (0.93-1.08) 10/24/17 16:32 APTT 35.4 Seconds (25.1-36.5) 10/24/17 16:32 - Constitutional Appears: Well, No Acute Distress - Head Exam Head Exam: ATRAUMATIC, NORMAL INSPECTION, NORMOCEPHALIC - Eye Exam Eye Exam: EOMI, Normal appearance Pupil Exam: NORMAL ACCOMODATION - ENT Exam ENT Exam: Mucous Membranes Moist - Neck Exam Additional comments: Left sided Dialysis catheter - no erythema, no drainage, appears clean - Respiratory Exam Respiratory Exam: Clear to Ausculation Bilateral, NORMAL BREATHING PATTERN. absent: Rales, Rhonchi, Wheezes - Cardiovascular Exam Cardiovascular Exam: REGULAR RHYTHM, +S1, +S2 - GI/Abdominal Exam GI & Abdominal Exam: Soft, Normal Bowel Sounds. absent: Guarding, Rigid, Tenderness - Extremities Exam Extremities Exam: Normal Inspection - Back Exam Back Exam: NORMAL INSPECTION - Neurological Exam Neurological Exam: Alert, Awake, Normal Gait, Oriented x3 - Psychiatric Exam Psychiatric exam: Normal Affect, Normal Mood - Skin Skin Exam: Dry, Normal Color, Warm Assessment and Plan - Assessment and Plan (Free Text) Assessment: This is a 37 yo female with past medical history of HTN, failed renal transplant , ESRD on HD MWF, who was admitted for pseudomonas bactermia most likely secondary to infected permacath. Patient was also found to have cardiomyopathy on Echo. Plan: 1. Pseudomonas Bacteremia - Most likely secondary to infected permacath - Afebrile, no leukocytosis - Blood culture from permacath showed Pseudomonas which is sensitive to Merrem - Peripheral blood culture showed no growth - CT A/P did not show any sign of infection - Patient going for permacath change today, Dialysis to follow - Echo showed cardiomyopathy, but no vegetation or thrombus - ID consulted- recs appreciated - Continue Merrem 500mg Q12H - Nephro consulted, f/u recommendations - Upper extremity US: L cephalic vein superificial thrombophelbitis 2. Cardiomyopathy - Echo showed EF 30% with severe LV and RV dysfunction and severe TR and pulm HTN - Cardio consulted- will follow up recs - Continue Lisinopril - Consider changing Clonidine to Beta- Amara 3. ESRD on HD MWF - Will have catheter changed today then continue regular HD schedule - Continue Nephrovit abd - Continue meds during HD as per Nephro 4. Hx of HTN - Continue Clonidine, Procardia - Continue Lisinopril - Hydralazine 25mg PO Q4H prn 5. Vaginal discharge/itching (resolved) - Patient given Diflucan - Terazol cream HS - Will follow up Chlamydia cultures 6. Constipation - Continue Miralax prn GI ppx: Protonix DVT ppx: Heparin SC <Rio Orozco - Last Filed: 10/28/17 14:42> Objective - Vital Signs/Intake and Output Vital Signs (last 24 hours): Temp Pulse Resp BP Pulse Ox 98.3 F 85 18 121/79 99 10/28/17 06:00 10/28/17 10:09 10/28/17 06:00 10/28/17 10:09 10/28/17 06:00 - Medications Medications: Current Medications Acetaminophen (Tylenol 325mg Tab) 650 mg PO Q4 PRN PRN Reason: Pain, Mild (1-3) Clonidine HCl (Catapres) 0.3 mg PO Q8 [facility] Last Admin: 10/28/17 07:49 Dose: Not Given Diphenhydramine HCl (Benadryl) 50 mg IVP BID PRN PRN Reason: Allergy symptoms Last Admin: 10/28/17 10:14 Dose: 50 mg Doxercalciferol (Hectorol) 2 mcg IVP MOWEFR [facility] Last Admin: 10/25/17 14:07 Dose: 2 mcg Etelcalcetide (Parsabiv) 5 mg IVP MWF [facility] Last Admin: 10/25/17 14:09 Dose: 5 mg Heparin Sodium (Porcine) (Heparin) 1,000 units IVP F [facility] PRN Reason: Protocol Last Admin: 10/28/17 10:21 Dose: Not Given Hydralazine HCl (Apresoline) 25 mg PO Q4 PRN PRN Reason: Other Last Admin: 10/27/17 17:49 Dose: 25 mg Meropenem 500 mg/ Sodium (Chloride) 50 mls @ 100 mls/hr IVPB Q12 [facility] PRN Reason: Protocol Stop: 11/02/17 22:42 Last Admin: 10/28/17 10:14 Dose: 100 mls/hr Lisinopril (Zestril) 5 mg PO DAILY [facility] Last Admin: 10/28/17 10:09 Dose: 5 mg Nifedipine (Procardia Xl) 90 mg PO BID [facility] Last Admin: 10/28/17 10:09 Dose: 90 mg Ondansetron HCl (Zofran Inj) 4 mg IVP Q6H PRN PRN Reason: Nausea/Vomiting Pantoprazole Sodium (Protonix Ec Tab) 40 mg PO 0600 [facility] Last Admin: 10/28/17 06:36 Dose: 40 mg Polyethylene Glycol (Miralax) 17 gm PO BID [facility] Last Admin: 10/28/17 10:18 Dose: Not Given Sevelamer HCl (Renagel) 2,400 mg PO TID [facility] Last Admin: 10/28/17 09:00 Dose: 2,400 mg Terconazole (Terazol 3 (0.8%) Cream) 1 ea VG HS [facility] Vitamin B Complex/Vit C/Folic Acid (Nephro-Teresa) 1 tab PO 0800 [facility] Last Admin: 10/28/17 08:55 Dose: 1 tab - Labs Labs: 10/27/17 07:30 10/27/17 07:30 PT 11.8 SECONDS (9.4-12.5) 10/24/17 16:32 INR 1.03 (0.93-1.08) 10/24/17 16:32 APTT 35.4 Seconds (25.1-36.5) 10/24/17 16:32 Attending/Attestation - Attestation I have personally seen and examined this patient.: Yes I have fully participated in the care of the patient.: Yes I have reviewed all pertinent clinical information, including history, physical exam and plan: Yes Notes (Text): 10/28/17 14:39 37 year old female with past medical history of ESRD on HD, hypertension and anemia with history of renal transplant who presented with complaint of chills during dialysis. She was found to have Pseudomona aeruginosa bacteremia and started on iv antibiotics. ID and nephrology are following. Plan is for catheter removal/exchange today by IR. Echocardiogram also showed cardiomyopathy for which cardiology was consulted. Will follow up with recommendations. Rio Orozco MD Hospitalist.
--- NOTE | 2017-10-28 12:01 | PN ---
DATE: FOLLOWUP SUBJECTIVE: The patient was orthopneic last night, but she is comfortable this morning. VITAL SIGNS: Blood pressure 121/79, heart rate 85, temperature 98.3, respirations 18. No reported ventricular arrhythmia. ASSESSMENT AND PLAN: The plan is to have the patient a hemodialysis access replaced today and undergo hemodialysis. I had a long discussion with the patient about the cardiac issue and the fact that she has dilated cardiomyopathy. I discussed the issue of anticoagulation with the resident team that the patient after the replacement of the hemodialysis catheter and completion of hemodialysis need to be placed on Coumadin therapy. No invasive cardiac workup is justified for now. The patient will follow with her Cardiology team in [facility]. Bhargav Thrasher MD
[2017-10-28] MEDS ORDERED: Morphine 4 mg/ml ISec ONE (14:18)
[2017-10-28] MEDS ORDERED: Oxycodone/Acetaminophen 5/325 mg Tab PO PRN ×2 (15:25→15:26)
[2017-10-28] MEDS ORDERED: HYDROmorphone 0.5 mg/0.5 ml ISec IVP STA ×2 (15:29→23:04)
[2017-10-28] MEDS ORDERED: HYDROmorphone 1 mg/ml ISec ONE (15:41)
--- NOTE | 2017-10-28 15:59 | CP.PCM.PN ---
Subjective - Date & Time of Evaluation Date of Evaluation: 10/28/17 Time of Evaluation: 15:52 - Subjective Subjective: Nephrology Consultation Note: Assessment: stable Psuedomonas Sepsis likely source as permacath infection s/p new permacath insertion 10/28/2017 Hypertensive Chronic Kidney Disease (I12.0) End stage renal disease (N18.6) dependence on hemodialysis (Z99.2) (MWF) via permacath Anemia (D64.9), Hyperphosphatemia (E83.39), Secondary Hyperparathyroidism (E21.1 ), HTN (I12.0) hx of kidney transplant [id number] hx of SVC reconstruction severe pHTN and systolic CHF EF 31% Plan: Will plan for HD today as ordered. Continue with Nephrovite 1 tab/day. PRBC as needed for anemia. On ALVARO as weekly aransep 25 mcg with dialysis, last Hb 9.4, will adjust as per protocol Continue with phos binders home dose, last phos level 5.7 Continue with hectorol and parsabiv with HD BP control with meds as ordered. Patient not on RAAS benito, she was prescribed as outpt but she doesn't take it. due to CHF, recommend to start losartan 50 mg/day and also add beta benito as coreg. Glycemic control, Dialysis consistent diet Further work up/management as per primary team Dose meds/antibiotics for ESRD status. Avoid fleets enema/magnesium based laxatives. ID following pt was recommended to increase HD time from current 3 hrs to 3.5 to 4 hrs. pain management as per primary team Thanks for allowing me to participate in care of your patient. Will follow patient with you. Please call if any Qs. d/w Primary team Dr Yvon Sanford Office: [phone] HPI: Pt is a 37 F with hx of ESRD on hemodialysis (MWF) via permacath, last dialysis wed, chronic anemia, hyperphosphatemia, secondary hyperparathyroidism, hypertension presented with complaints of chills during dialysis and found to have gram negative bacteremia hence admitted for further eval. she c/o rash around ankles. also feels somewhat SOB, reports ankle swelling she is anuric also reports difficult access with hx of SVC reconstruction, left AVF thrombosis. 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 received a kidney transplant in 2005 (@ [place] with Dr Laird) which failed in 2016 and pt back on HD since then ROS: pt is upset. seen in PACU after permacath insertion. she c/o uncontrolled pain at catheter site. Physical Examination: seen in recovery room General Appearance: in no acute respiratory distress,unco-operative and upset . Vitals reviewed and noted as below Head; Atraumatic, normocephalic she refused for further examination Labs/imaging reviewed. Past medical history, past surgical history, family history, social history, allergy reviewed and noted as below Family Hx: sister also on HD (pt says due to HUS) rest Non contributory Objective - Vital Signs/Intake and Output Vital Signs (last 24 hours): Temp Pulse Resp BP Pulse Ox 98.3 F 114 H 15 203/127 H 100 10/28/17 15:16 10/28/17 15:16 10/28/17 15:16 10/28/17 15:16 10/28/17 15:16 Intake and Output: 10/28/17 10/28/17 06:59 18:59 Intake Total 480 Balance 480 - Medications Medications: Current Medications Acetaminophen (Tylenol 325mg Tab) 650 mg PO Q4 PRN PRN Reason: Pain, Mild (1-3) Carvedilol (Coreg) 6.25 mg PO 0800,1800 [facility] Clonidine HCl (Catapres) 0.3 mg PO Q8 [facility] Last Admin: 10/28/17 15:25 Dose: Not Given Diphenhydramine HCl (Benadryl) 50 mg IVP BID PRN PRN Reason: Allergy symptoms Last Admin: 10/28/17 10:14 Dose: 50 mg Doxercalciferol (Hectorol) 2 mcg IVP MOWEFR [facility] Last Admin: 10/25/17 14:07 Dose: 2 mcg Etelcalcetide (Parsabiv) 5 mg IVP MWF [facility] Last Admin: 10/25/17 14:09 Dose: 5 mg Heparin Sodium (Porcine) (Heparin) 1,000 units IVP [facility] PRN Reason: Protocol Last Admin: 10/28/17 10:21 Dose: Not Given Hydralazine HCl (Apresoline) 25 mg PO Q4 PRN PRN Reason: Other Last Admin: 10/27/17 17:49 Dose: 25 mg Meropenem 500 mg/ Sodium (Chloride) 50 mls @ 100 mls/hr IVPB Q12 [facility] PRN Reason: Protocol Stop: 11/02/17 22:42 Last Admin: 10/28/17 10:14 Dose: 100 mls/hr Losartan Potassium (Cozaar) 50 mg PO DIN [facility] Nifedipine (Procardia Xl) 90 mg PO BID [facility] Last Admin: 10/28/17 10:09 Dose: 90 mg Ondansetron HCl (Zofran Inj) 4 mg IVP Q6H PRN PRN Reason: Nausea/Vomiting Oxycodone/Acetaminophen (Percocet 5/325 Mg Tab) 1 tab PO Q4H PRN PRN Reason: Pain, moderate (4-7) Stop: 10/31/17 15:26 Oxycodone/Acetaminophen (Percocet 5/325 Mg Tab) 2 tab PO Q4H PRN PRN Reason: Pain, severe (8-10) Stop: 10/31/17 15:27 Pantoprazole Sodium (Protonix Ec Tab) 40 mg PO 0600 [facility] Last Admin: 10/28/17 06:36 Dose: 40 mg Polyethylene Glycol (Miralax) 17 gm PO BID [facility] Last Admin: 10/28/17 10:18 Dose: Not Given Sevelamer HCl (Renagel) 2,400 mg PO TID [facility] Last Admin: 10/28/17 15:27 Dose: Not Given Terconazole (Terazol 3 (0.8%) Cream) 1 ea VG HS [facility] Vitamin B Complex/Vit C/Folic Acid (Nephro-Teresa) 1 tab PO 0800 [facility] Last Admin: 10/28/17 08:55 Dose: 1 tab - Labs Labs: 10/27/17 07:30 10/27/17 07:30 PT 11.8 SECONDS (9.4-12.5) 10/24/17 16:32 INR 1.03 (0.93-1.08) 10/24/17 16:32 APTT 35.4 Seconds (25.1-36.5) 10/24/17 16:32
[2017-10-28] MEDS ORDERED: Morphine 4 mg/ml ISec IVP STA (16:21)
[2017-10-28 16:35] LABS: BASO # 0.02 K/mm3 (0.0-2.0); BASO % 0.4 % (0.0-3.0); EOS # 0.3 (0.0-0.7); EOS % 6.3 % (1.5-5.0); GRAN # 3.24 (1.4-6.5); GRAN % 66.1 % (50.0-68.0); HEMOGLOBIN 9.8 g/dL (12.0-16.0); LYMPH % 19.6 % (22.0-35.0); MEAN CELL VOLUME 92.8 fl (80.0-105.0); MEAN CORPUSCULAR HEMOGLOBIN 30.8 pg (25.0-35.0); MEAN CORPUSCULAR HGB CONC 33.2 g/dl (31.0-37.0); MEAN PLATELET VOLUME 9.1 fl (7.0-11.0); MONO # 0.4 (0.1-0.6); MONO % 7.6 % (1.0-6.0); RBC 3.18 10^6/uL (3.5-6.1); RED CELL DISTRIBUTION WIDTH 16.8 % (11.5-14.5); WHITE BLOOD COUNT 4.9 10^3/ul (4.5-11.0)
[2017-10-28 17:19] LABS: ALB/GLOB RATIO 1.3 (1.1-1.8); ALBUMIN 3.9 g/dL (3.0-4.8); CALCIUM 8.1 mg/dL (8.4-10.5)
--- NOTE | 2017-10-28 17:56 | VASCULAR ---
PROCEDURE: Ultrasound and fluoroscopic tunneled right IJ dialysis catheter. Removed infected tunneled left IJ dialysis catheter CLINICAL HISTORY: ESRD sepsis. Infected tunneled left IJ dialysis catheter. Limited IV access P PHYSICIAN(S): Jamir Luz M.D. TECHNIQUE: The relative risks and indications for the procedure were explained to the patient and informed written consent obtained. The patient was placed supine on the arteriography table and the left neck/chest was prepped and draped in the usual sterile fashion. 1% Xylocaine was used to anesthetize the skin and soft tissues at the puncture site. Conscious sedation and monitoring were provided throughout the procedure by a nurse. The exit site and tunnel of the left IJ dialysis catheter was infiltrated 1 percent xylocaine. The area was bluntly dissected. The catheter was removed without difficulty and hemostasis obtained. A single interrupted suture was placed at the exit site Sonography of the right neck was performed. This revealed a patent right internal jugular vein. Under direct ultrasound guidance, the rightinternal jugular vein was punctured with a micropuncture set. A 0.035 Glidewire was advanced into the IVC. Sequential dilatation was performed with subsequent placement of a 23 cmCannon II catheter with its tip in the right atrium. A retrograde tunnel below the right clavicle was performed. The catheter was trimmed and the hub attached. Both ports aspirate and inject easily. The catheter was secured and a dressing applied. The patient tolerated the procedure well. IMPRESSION: 1. Ultrasound and fluoroscopically placed right IJ tunneled dialysis catheter. 2. Removal the patient's infected tunneled left IJ dialysis catheter
[2017-10-28] MEDS ORDERED: Morphine 2 mg/ml ISec IVP STA ×2 (20:34→22:58)
--- NOTE | 2017-10-28 21:36 | CP.PCM.PN ---
Subjective - Date & Time of Evaluation Date of Evaluation: 10/28/17 Time of Evaluation: 10:40 - Subjective Subjective: Comfortable, no fevers, no diarrhea, no nausea. Objective - Vital Signs/Intake and Output Vital Signs (last 24 hours): Temp Pulse Resp BP Pulse Ox 98.3 F 121 H 14 219/123 H 100 10/28/17 16:01 10/28/17 16:01 10/28/17 16:01 10/28/17 16:01 10/28/17 16:01 Intake and Output: 10/28/17 10/29/17 18:59 06:59 Intake Total 480 Balance 480 - Medications Medications: Current Medications Acetaminophen (Tylenol 325mg Tab) 650 mg PO Q4 PRN PRN Reason: Pain, Mild (1-3) Carvedilol (Coreg) 6.25 mg PO 0800,1800 [facility] Last Admin: 10/28/17 18:46 Dose: Not Given Clonidine HCl (Catapres) 0.3 mg PO Q8 [facility] Last Admin: 10/28/17 15:30 Dose: 0.3 mg Diphenhydramine HCl (Benadryl) 50 mg IVP BID PRN PRN Reason: Allergy symptoms Last Admin: 10/28/17 10:14 Dose: 50 mg Doxercalciferol (Hectorol) 2 mcg IVP MOWEFR [facility] Last Admin: 10/25/17 14:07 Dose: 2 mcg Etelcalcetide (Parsabiv) 5 mg IVP F [facility] Last Admin: 10/25/17 14:09 Dose: 5 mg Heparin Sodium (Porcine) (Heparin) 1,000 units IVP [facility] PRN Reason: Protocol Last Admin: 10/28/17 10:21 Dose: Not Given Hydralazine HCl (Apresoline) 25 mg PO Q4 PRN PRN Reason: Other Last Admin: 10/27/17 17:49 Dose: 25 mg Meropenem 500 mg/ Sodium (Chloride) 50 mls @ 100 mls/hr IVPB Q12 [facility] PRN Reason: Protocol Stop: 11/02/17 22:42 Last Admin: 10/28/17 10:14 Dose: 100 mls/hr Losartan Potassium (Cozaar) 50 mg PO DIN [facility] Last Admin: 10/28/17 18:46 Dose: Not Given Nifedipine (Procardia Xl) 90 mg PO BID [facility] Last Admin: 10/28/17 10:09 Dose: 90 mg Ondansetron HCl (Zofran Inj) 4 mg IVP Q6H PRN PRN Reason: Nausea/Vomiting Oxycodone/Acetaminophen (Percocet 5/325 Mg Tab) 1 tab PO Q4H PRN PRN Reason: Pain, moderate (4-7) Stop: 10/31/17 15:26 Oxycodone/Acetaminophen (Percocet 5/325 Mg Tab) 2 tab PO Q4H PRN PRN Reason: Pain, severe (8-10) Stop: 10/31/17 15:27 Pantoprazole Sodium (Protonix Ec Tab) 40 mg PO 0600 [facility] Last Admin: 10/28/17 06:36 Dose: 40 mg Polyethylene Glycol (Miralax) 17 gm PO BID [facility] Last Admin: 10/28/17 10:18 Dose: Not Given Sevelamer HCl (Renagel) 2,400 mg PO TID [facility] Last Admin: 10/28/17 15:27 Dose: Not Given Terconazole (Terazol 3 (0.8%) Cream) 1 ea VG HS [facility] Vitamin B Complex/Vit C/Folic Acid (Nephro-Teresa) 1 tab PO 0800 [facility] Last Admin: 10/28/17 08:55 Dose: 1 tab - Labs Labs: 10/28/17 16:15 10/28/17 16:15 PT 11.8 SECONDS (9.4-12.5) 10/24/17 16:32 INR 1.03 (0.93-1.08) 10/24/17 16:32 APTT 35.4 Seconds (25.1-36.5) 10/24/17 16:32 - Constitutional Appears: Chronically Ill - Head Exam Head Exam: NORMAL INSPECTION - ENT Exam ENT Exam: Mucous Membranes Moist - Neck Exam Neck Exam: absent: Meningismus - Respiratory Exam Respiratory Exam: Decreased Breath Sounds Additional comments: left anterior chest wall HD catheter in place - Cardiovascular Exam Cardiovascular Exam: +S1, +S2 - GI/Abdominal Exam GI & Abdominal Exam: Soft. absent: Tenderness Assessment and Plan - Assessment and Plan (Free Text) Plan: Assessment Pseudomonas bacteremia, suspicious for HD catheter-related bacteremia consider rolando vaginitis HTN ESRD on HD history of hemolytic uremic syndrome chronic anemia S/P kidney transplant history of breast implants Plan continue Merrem; repeat blood cx are negative; follow up plan to remove / exchange HD catheter gave a dose of Diflucan for the vaginitis will continue to monitor clinically
[2017-10-29] MEDS: NIFEdipine 90 mg ER Tab PO SCH ×3 (02:42→18:04)
[2017-10-29 06:28] LABS: BASO # 0.01 K/mm3 (0.0-2.0); BASO % 0.2 % (0.0-3.0); EOS # 0.3 (0.0-0.7); EOS % 6.3 % (1.5-5.0); GRAN # 2.85 (1.4-6.5); GRAN % 63.8 % (50.0-68.0); LYMPH # 0.8 (1.2-3.4); LYMPH % 18.1 % (22.0-35.0); MEAN CELL VOLUME 93.8 fl (80.0-105.0); MEAN CORPUSCULAR HEMOGLOBIN 31.2 pg (25.0-35.0); MEAN CORPUSCULAR HGB CONC 33.2 g/dl (31.0-37.0); MEAN PLATELET VOLUME 9.7 fl (7.0-11.0); MONO # 0.5 (0.1-0.6); MONO % 11.6 % (1.0-6.0); RBC 3.21 10^6/uL (3.5-6.1); WHITE BLOOD COUNT 4.5 10^3/ul (4.5-11.0)
[2017-10-29] MEDS: Pantoprazole 40 mg EC Tab PO SCH (06:40)
[2017-10-29 06:44] LABS: ALB/GLOB RATIO 1.2 (1.1-1.8); CALCIUM 8.7 mg/dL (8.4-10.5)
--- NOTE | 2017-10-29 08:34 | CP.PCM.PN ---
<Brittanie Guzman - Last Filed: 10/29/17 11:43> Subjective - Date & Time of Evaluation Date of Evaluation: 10/29/17 Time of Evaluation: 08:32 - Subjective Subjective: Progress Note for Hospitalist, Chelo Guzman PGY2 Patient seen and examined at bedside. She had her permacath exchanged yesterday. Overnight patient was having some pain and received Morphine IVP. Patient reports she does still have some pain in the new catheter site in her R neck this AM. She reports that Percocet makes her feel sick and the morphine worked for her. She denies chest pain, shortness of breath, nausea/vomiting/ diarrhea, fever/chills, numbness/tingling or constipation. Patient states her vaginal itching and discharge has improved greatly. Objective - Vital Signs/Intake and Output Vital Signs (last 24 hours): Temp Pulse Resp BP Pulse Ox 97.9 F 88 18 157/114 H 100 10/29/17 06:00 10/29/17 06:40 10/29/17 06:00 10/29/17 06:40 10/28/17 16:01 - Medications Medications: Current Medications Acetaminophen (Tylenol 325mg Tab) 650 mg PO Q4 PRN PRN Reason: Pain, Mild (1-3) Carvedilol (Coreg) 6.25 mg PO 0800,1800 [facility] Last Admin: 10/28/17 18:46 Dose: Not Given Clonidine HCl (Catapres) 0.3 mg PO Q8 [facility] Last Admin: 10/29/17 06:40 Dose: 0.3 mg Diphenhydramine HCl (Benadryl) 50 mg IVP BID PRN PRN Reason: Allergy symptoms Last Admin: 10/28/17 10:14 Dose: 50 mg Doxercalciferol (Hectorol) 2 mcg IVP MOWEFR [facility] Last Admin: 10/25/17 14:07 Dose: 2 mcg Etelcalcetide (Parsabiv) 5 mg IVP [facility] Last Admin: 10/25/17 14:09 Dose: 5 mg Heparin Sodium (Porcine) (Heparin) 1,000 units IVP [facility] PRN Reason: Protocol Last Admin: 10/28/17 10:21 Dose: Not Given Hydralazine HCl (Apresoline) 25 mg PO Q4 PRN PRN Reason: Other Last Admin: 10/29/17 02:05 Dose: 25 mg Meropenem 500 mg/ Sodium (Chloride) 50 mls @ 100 mls/hr IVPB Q12 [facility] PRN Reason: Protocol Stop: 11/02/17 22:42 Last Admin: 10/28/17 23:15 Dose: 100 mls/hr Losartan Potassium (Cozaar) 50 mg PO DIN [facility] Last Admin: 10/28/17 18:46 Dose: Not Given Morphine Sulfate (Morphine) 2 mg IVP Q6H PRN PRN Reason: Pain, severe (8-10) Nifedipine (Procardia Xl) 90 mg PO BID [facility] Last Admin: 10/29/17 02:42 Dose: 90 mg Ondansetron HCl (Zofran Inj) 4 mg IVP Q6H PRN PRN Reason: Nausea/Vomiting Last Admin: 10/28/17 23:15 Dose: 4 mg Pantoprazole Sodium (Protonix Ec Tab) 40 mg PO 0600 [facility] Last Admin: 10/29/17 06:40 Dose: 40 mg Polyethylene Glycol (Miralax) 17 gm PO BID [facility] Last Admin: 10/28/17 10:18 Dose: Not Given Sevelamer HCl (Renagel) 2,400 mg PO TID [facility] Last Admin: 10/28/17 15:27 Dose: Not Given Terconazole (Terazol 3 (0.8%) Cream) 1 ea VG HS [facility] Tramadol HCl (Ultram) 50 mg PO TID PRN PRN Reason: Pain, moderate (4-7) Vitamin B Complex/Vit C/Folic Acid (Nephro-Teresa) 1 tab PO 0800 [facility] Last Admin: 10/28/17 08:55 Dose: 1 tab - Labs Labs: 10/29/17 05:40 10/29/17 05:40 PT 11.8 SECONDS (9.4-12.5) 10/24/17 16:32 INR 1.03 (0.93-1.08) 10/24/17 16:32 APTT 35.4 Seconds (25.1-36.5) 10/24/17 16:32 - Constitutional Appears: No Acute Distress - Head Exam Head Exam: ATRAUMATIC, NORMAL INSPECTION, NORMOCEPHALIC - Eye Exam Eye Exam: Normal appearance, PERRL Pupil Exam: NORMAL ACCOMODATION - ENT Exam ENT Exam: Mucous Membranes Moist - Neck Exam Neck Exam: Full ROM Additional comments: R neck permacath in place- clean and dry L chest permacath removal site clean and dry - Cardiovascular Exam Cardiovascular Exam: REGULAR RHYTHM, +S1, +S2. absent: Gallop, Rubs, Murmur - GI/Abdominal Exam GI & Abdominal Exam: Soft, Normal Bowel Sounds. absent: Rigid, Tenderness, Mass , Rebound - Extremities Exam Extremities Exam: Normal Inspection. absent: Calf Tenderness, Pedal Edema - Neurological Exam Neurological Exam: Alert, Awake, CN II-XII Intact, Normal Gait, Oriented x3 - Psychiatric Exam Psychiatric exam: Normal Affect, Normal Mood - Skin Skin Exam: Dry, Intact, Warm Assessment and Plan - Assessment and Plan (Free Text) Assessment: This is a 37 yo female with past medical history of HTN, possible hx of heart failure and CABG, failed renal transplant, ESRD on HD MWF, who was admitted for pseudomonas bactermia most secondary to infected permacath. She was also found to have cardiomyopathy with EF 30%. Plan: 1. Pseudomonas Bacteremia - secondary to infected permacath - Upper extremity US: L cephalic vein superificial thrombophelbitis- no sign of thrombus - s/p catheter removal and new catheter placement in R neck - Patient continues to be afebrile without leukocytosis - Peripheral blood culture showed one specimen with growth on coag neg staph which is most likely contamination - Will recheck blood culture - Echo did not show any vegetation or thrombus - ID consulted- recs appreciated - Continue Merrem 500mg Q12- Will need 10-14 days of Merrem. This is day #2. - Nephro consulted- recs appreciated - Continue pain control 2. Cardiomyopathy - Lisinopril changed to cozaar - Coreg was started yesterday for HTN - Echo showed EF 30% with severe LV and RV dysfunction and severe TR and pulm HTN - Cardio consulted- will follow up recs 3. ESRD on HD MW - Nephro consulted- recs appreciated - Continue HD as scheduled - Continue Nephrovit and Renagel - Continue Hecterol and Parsabiv during HD 4. Hx of HTN - Coreg added - Continue Clonidine, Procardia and Cozaar - Hydralazine 25mg PO Q4H prn 5. Vaginal discharge/itching (resolved) - Terazol cream HS 6. Constipation - Continue Miralax prn GI ppx: Protonix DVT ppx: Heparin SC Dispo: Patient will be dc home tomorrow after HD. She will need to continue to have IV antibiotics as outpatient to complete a 10-14day course. Plan is for midline placement for antibiotics. Case seen, discussed and reviewed with attending. Chelo Guzman PGY2 <Rio Orozco - Last Filed: 10/29/17 12:32> Objective - Vital Signs/Intake and Output Vital Signs (last 24 hours): Temp Pulse Resp BP Pulse Ox 97.9 F 77 18 138/99 H 100 10/29/17 12:00 10/29/17 12:00 10/29/17 12:00 10/29/17 12:00 10/28/17 16:01 - Medications Medications: Current Medications Acetaminophen (Tylenol 325mg Tab) 650 mg PO Q4 PRN PRN Reason: Pain, Mild (1-3) Carvedilol (Coreg) 6.25 mg PO 0800,1800 [facility] Last Admin: 10/29/17 09:59 Dose: 6.25 mg Clonidine HCl (Catapres) 0.3 mg PO Q8 [facility] Last Admin: 10/29/17 06:40 Dose: 0.3 mg Diphenhydramine HCl (Benadryl) 50 mg IVP BID PRN PRN Reason: Allergy symptoms Last Admin: 10/28/17 10:14 Dose: 50 mg Doxercalciferol (Hectorol) 2 mcg IVP MOWEFR [facility] Last Admin: 10/25/17 14:07 Dose: 2 mcg Etelcalcetide (Parsabiv) 5 mg IVP F [facility] Last Admin: 10/25/17 14:09 Dose: 5 mg Heparin Sodium (Porcine) (Heparin) 1,000 units IVP [facility] PRN Reason: Protocol Last Admin: 10/28/17 10:21 Dose: Not Given Hydralazine HCl (Apresoline) 25 mg PO Q4 PRN PRN Reason: Other Last Admin: 10/29/17 02:05 Dose: 25 mg Meropenem 500 mg/ Sodium (Chloride) 50 mls @ 100 mls/hr IVPB Q12 [facility] PRN Reason: Protocol Stop: 11/02/17 22:42 Last Admin: 10/29/17 10:03 Dose: 100 mls/hr Losartan Potassium (Cozaar) 50 mg PO DIN [facility] Last Admin: 10/28/17 18:46 Dose: Not Given Morphine Sulfate (Morphine) 2 mg IVP Q6H PRN PRN Reason: Pain, severe (8-10) Last Admin: 10/29/17 10:00 Dose: 2 mg Nifedipine (Procardia Xl) 90 mg PO BID [facility] Last Admin: 10/29/17 09:59 Dose: 90 mg Ondansetron HCl (Zofran Inj) 4 mg IVP Q6H PRN PRN Reason: Nausea/Vomiting Last Admin: 10/28/17 23:15 Dose: 4 mg Pantoprazole Sodium (Protonix Ec Tab) 40 mg PO 0600 [facility] Last Admin: 10/29/17 06:40 Dose: 40 mg Polyethylene Glycol (Miralax) 17 gm PO BID [facility] Last Admin: 10/29/17 10:23 Dose: Not Given Sevelamer HCl (Renagel) 2,400 mg PO TID [facility] Last Admin: 10/29/17 09:58 Dose: 2,400 mg Terconazole (Terazol 3 (0.8%) Cream) 1 ea VG HS [facility] Tramadol HCl (Ultram) 50 mg PO TID PRN PRN Reason: Pain, moderate (4-7) Vitamin B Complex/Vit C/Folic Acid (Nephro-Teresa) 1 tab PO 0800 [facility] Last Admin: 10/29/17 09:59 Dose: 1 tab - Labs Labs: 10/29/17 05:40 10/29/17 05:40 PT 11.8 SECONDS (9.4-12.5) 10/24/17 16:32 INR 1.03 (0.93-1.08) 10/24/17 16:32 APTT 35.4 Seconds (25.1-36.5) 10/24/17 16:32 Attending/Attestation - Attestation I have personally seen and examined this patient.: Yes I have fully participated in the care of the patient.: Yes I have reviewed all pertinent clinical information, including history, physical exam and plan: Yes Notes (Text): 10/29/17 12:30 37 year old female with past medical history of ESRD on HD, hypertension and anemia with history of renal transplant who presented with complaint of chills during dialysis. She was found to have Pseudomona aeruginosa bacteremia and started on iv antibiotics. 1 bottle blood culture was positive for gram positive cocci / coag negative staph. Will repeat blood cultures today. ID and nephrology are following. She is s/p catheter removal/exchange yesterday by IR. Echocardiogram also showed cardiomyopathy for which cardiology is following. She was started on coreg and cozaar. Rio Orozco MD Hospitalist.
[2017-10-29] MEDS: Multivitamin Vitamin B Complex (Nephro-Vite) Tab PO SCH (09:59)
[2017-10-29] MEDS: Morphine 4 mg/ml ISec IVP PRN ×2 (10:00→22:39)
[2017-10-29] MEDS: Meropenem 500 MG in Sodium Chloride 0.9% 50 ML IVPB SCH ×2 (10:03→22:07)
[2017-10-29] MEDS: POLYETHYLENE GLYCOL 3350 17 GM/Dose PACKET PO SCH ×2 (10:23→18:04)
--- NOTE | 2017-10-29 10:51 | CARD ---
APPROVED REPORT EKG Measurement Heart [id number] <Conclusion> Normal sinus rhythm Cannot rule out Anterior infarct, age undetermined Prolonged QT Abnormal ECG
--- NOTE | 2017-10-29 13:43 | PN ---
DATE: 10/29/2017 SUBJECTIVE: The patient underwent replacement of hemodialysis catheter access and underwent hemodialysis yesterday. Orthopnea had improved last night. PHYSICAL EXAMINATION: VITAL SIGNS: Blood pressure , heart rate , temperature 97.9 HEENT: Pale conjunctivae. CHEST: Clear. HEART: S1 and S2, regular. EXTREMITIES: No edema. LABORATORY DATA: Hemoglobin and hematocrit 10 and 30.1. White count and platelet count are within normal limit. Today's BUN and creatinine are 29 and 5.5 respectively. Blood culture; one positive for gram-positive cocci and second one is negative after 4 days. Those are the admitting blood cultures. ASSESSMENT: 1. Biventricular failure. 2. End-stage renal disease, on hemodialysis. 3. Uncontrolled hypertension. 4. Mild anemia. CONDITION: Continue clonidine at 0.2 mg every 8 hours, Coreg 6.25 mg twice a day, subcutaneous heparin, IV meropenem, Procardia XL 90 mg twice a day. start minoxidil at 2.5 mg daily, . Bhargav Thrasher MD
--- NOTE | 2017-10-29 16:43 | CP.PCM.PN ---
Subjective - Date & Time of Evaluation Date of Evaluation: 10/29/17 Time of Evaluation: 16:40 - Subjective Subjective: Nephrology Consultation Note: Assessment: stable Psuedomonas Sepsis likely source as permacath infection s/p new permacath insertion 10/28/2017 Hypertensive Chronic Kidney Disease (I12.0) End stage renal disease (N18.6) dependence on hemodialysis (Z99.2) (MWF) via permacath Anemia (D64.9), Hyperphosphatemia (E83.39), Secondary Hyperparathyroidism (E21.1 ), HTN (I12.0) hx of kidney transplant [id number] hx of SVC reconstruction severe pHTN and systolic CHF EF 31% Plan: Will plan for HD tomorrow as ordered. Continue with Nephrovite 1 tab/day. HD time increased to 3.5 hrs, pt agreeable PRBC as needed for anemia. On ALVARO as weekly aransep 40 mcg with dialysis, last Hb 10 Continue with phos binders home dose, last phos level 4.1 Continue with hectorol and parsabiv with HD BP control with meds as ordered. Patient not on RAAS benito, she was prescribed as outpt but she doesn't take it. due to CHF, recommend to start losartan 50 mg/day and also add beta benito as coreg. Glycemic control, Dialysis consistent diet Further work up/management as per primary team Dose meds/antibiotics for ESRD status. Avoid fleets enema/magnesium based laxatives. ID following, plan for outpt IV antibiotics. Thanks for allowing me to participate in care of your patient. Will follow patient with you. Please call if any Qs. d/w Primary team and ID Dr Yvon Sanford Office: [phone] HPI: Pt is a 37 F with hx of ESRD on hemodialysis (MWF) via permacath, last dialysis wed, chronic anemia, hyperphosphatemia, secondary hyperparathyroidism, hypertension presented with complaints of chills during dialysis and found to have gram negative bacteremia hence admitted for further eval. she c/o rash around ankles. also feels somewhat SOB, reports ankle swelling she is anuric also reports difficult access with hx of SVC reconstruction, left AVF thrombosis. 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 received a kidney transplant in 2005 (@ [facility] with Dr Laird) which failed in 2016 and pt back on HD since then ROS: Cardiovascular: No chest pain. Pulmonary: denies shortness of breath Gastrointestinal: denies abdominal pain No nausea. No vomiting. Genitourinary: anuric All other negative Physical Examination: General Appearance: Comfortable, in no acute respiratory distress, co-operative . Vitals reviewed and noted as below Head; Atraumatic, normocephalic ENT: no ulcers no thrush. Tongue is midline. Oropharynx: no rash or ulcers. EYES: Pupils are equal, round and reactive to light accommodation. Eye muscles and extraocular movement intact. Sclera is anicteric. Neck; supple no lymphadenopathy, no thyromegaly or bruit. Lungs: Normal respiratory rate/effort. Breath sounds bilateral equal and clear Heart: Normal rate. s1s2 normal. No rub or gallop. chest midline scar noted Extremities: 1+ edema. No varicose veins Neurological: Patient is alert, awake and oriented to person, place and time. No focal deficit. Strength bilateral appropriate and equal Skin: Warm and dry. Normal turgor. Palpitation: Normal elasticity for age. Abdomen: Abdomen is soft. Bowel sounds +. There is no abdominal tenderness, no guarding/rigidity or organomegaly, no tenderness over RLQ renal allograft noted Psych: normal insight and normal affect/mood MSK: no joint tenderness or swelling. Digits and nails normal, no deformity : qagan t[place]ung[place] kidney or bladder not palpable Access: left permacath. left avf thrombosed. Labs/imaging reviewed. Past medical history, past surgical history, family history, social history, allergy reviewed and noted as below Family Hx: sister also on HD (pt says due to HUS) rest Non contributory Objective - Vital Signs/Intake and Output Vital Signs (last 24 hours): Temp Pulse Resp BP Pulse Ox 97.9 F 83 18 161/111 H 100 10/29/17 12:00 10/29/17 13:53 10/29/17 12:00 10/29/17 13:53 10/28/17 16:01 Intake and Output: 10/29/17 10/29/17 06:59 18:59 Intake Total 720 Output Total 0 Balance 720 - Medications Medications: Current Medications Acetaminophen (Tylenol 325mg Tab) 650 mg PO Q4 PRN PRN Reason: Pain, Mild (1-3) Carvedilol (Coreg) 6.25 mg PO 0800,1800 [facility] Last Admin: 10/29/17 09:59 Dose: 6.25 mg Clonidine HCl (Catapres) 0.3 mg PO Q8 [facility] Last Admin: 10/29/17 13:53 Dose: 0.3 mg Diphenhydramine HCl (Benadryl) 50 mg IVP BID PRN PRN Reason: Allergy symptoms Last Admin: 10/28/17 10:14 Dose: 50 mg [facility]ercalciferol (Hectorol) [facility] Last Admin: 10/25/17 14:07 Dose: 2 mcg Etelcalcetide (Parsabiv) 5 mg IVP [facility] Last Admin: 10/25/17 14:09 Dose: 5 mg Heparin Sodium (Porcine) (Heparin) 1,000 units IVP [facility] PRN Reason: Protocol Last Admin: 10/28/17 10:21 Dose: Not Given Hydralazine HCl (Apresoline) 25 mg PO Q4 PRN PRN Reason: Other Last Admin: 10/29/17 02:05 Dose: 25 mg Meropenem 500 mg/ Sodium (Chloride) 50 mls @ 100 mls/hr IVPB Q12 [facility] PRN Reason: Protocol Stop: 11/02/17 22:42 Last Admin: 10/29/17 10:03 Dose: 100 mls/hr Losartan Potassium (Cozaar) 50 mg PO DIN [facility] Last Admin: 10/28/17 18:46 Dose: Not Given Minoxidil (Minoxidil) 2.5 mg PO DAILY [facility] Morphine Sulfate (Morphine) 2 mg IVP Q6H PRN PRN Reason: Pain, severe (8-10) Last Admin: 10/29/17 10:00 Dose: 2 mg Nifedipine (Procardia Xl) 90 mg PO BID [facility] Last Admin: 10/29/17 09:59 Dose: 90 mg Ondansetron HCl (Zofran Inj) 4 mg IVP Q6H PRN PRN Reason: Nausea/Vomiting Last Admin: 10/28/17 23:15 Dose: 4 mg Pantoprazole Sodium (Protonix Ec Tab) 40 mg PO 0600 [facility] Last Admin: 10/29/17 06:40 Dose: 40 mg Polyethylene Glycol (Miralax) 17 gm PO BID [facility] Last Admin: 10/29/17 10:23 Dose: Not Given Sevelamer HCl (Renagel) 2,400 mg PO TID [facility] Last Admin: 10/29/17 14:01 Dose: 2,400 mg Terconazole (Terazol 3 (0.8%) Cream) 1 ea VG HS [facility] Tramadol HCl (Ultram) 50 mg PO TID PRN PRN Reason: Pain, moderate (4-7) Vitamin B Complex/Vit C/Folic Acid (Nephro-Teresa) 1 tab PO 0800 [facility] Last Admin: 10/29/17 09:59 Dose: 1 tab - Labs Labs: 10/29/17 05:40 10/29/17 05:40 PT 11.8 SECONDS (9.4-12.5) 10/24/17 16:32 INR 1.03 (0.93-1.08) 10/24/17 16:32 APTT 35.4 Seconds (25.1-36.5) 10/24/17 16:32
[2017-10-29] MEDS: DiphenhydrAMINE 50 mg/ml Inj IVP PRN (22:08)
--- NOTE | 2017-10-29 22:27 | PN ---
DATE: 10/29/2017 SUBJECTIVE: The patient is seen earlier today in 264, bed 2. No fevers and no chills. OBJECTIVE: VITAL SIGNS: Temperature is 97, blood pressure is 130/90, respiratory rate of 16. HEENT: Unremarkable. NECK: Supple. LUNGS: Have decreased breath sounds. HEART: Normal S1, S2. ABDOMEN: Soft, nontender. LABORATORY EXAMINATION: Reveals the patient's white count of 4.5, hemoglobin of 10, platelet . HIV is negative. Repeat blood cultures are Gram-positive cocci with coagulase-negative Staphylococcus in one bottle. ASSESSMENT AND PLAN: This is a 37-year-old female seen earlier with pseudomonas bacteremia suspicious for hemodialysis catheter-related bacteremia with hypertension; end-stage renal disease on hemodialysis; history of hemolytic uremic syndrome, post delivery; chronic anemia; history of kidney transplant. Patient with breast implants, currently on meropenem. Repeat culture one bottle is coagulase-negative Staphylococcus. Patient is not behaving bacteremic at this point. Her fevers and chills had resolved. Continue with meropenem and may be able to switch to complete 10-14 days total. Consider repeating an echo. Patient had one on 10/26/2017, which was negative for vegetations. We will follow with you. Case discussed with Dr. Sanford. Raffy Reddy MD
[2017-10-29] MEDS: TERCONAZOLE 0.8% VG SCH (23:00)
[2017-10-30] MEDS: Pantoprazole 40 mg EC Tab PO SCH (05:46)
[2017-10-30] MEDS: Morphine 4 mg/ml ISec IVP PRN ×3 (05:56→21:48)
[2017-10-30 07:05] LABS: BASO # 0.02 K/mm3 (0.0-2.0); BASO % 0.3 % (0.0-3.0); EOS # 0.3 (0.0-0.7); EOS % 4.3 % (1.5-5.0); GRAN # 3.99 (1.4-6.5); GRAN % 69.3 % (50.0-68.0); HEMOGLOBIN 9.9 g/dL (12.0-16.0); LYMPH % 17.9 % (22.0-35.0); MEAN CELL VOLUME 92.8 fl (80.0-105.0); MEAN CORPUSCULAR HEMOGLOBIN 30.8 pg (25.0-35.0); MEAN CORPUSCULAR HGB CONC 33.2 g/dl (31.0-37.0); MEAN PLATELET VOLUME 9.6 fl (7.0-11.0); MONO # 0.5 (0.1-0.6); MONO % 8.2 % (1.0-6.0); RBC 3.21 10^6/uL (3.5-6.1); RED CELL DISTRIBUTION WIDTH 16.9 % (11.5-14.5); WHITE BLOOD COUNT 5.8 10^3/ul (4.5-11.0)
[2017-10-30 07:20] LABS: ALB/GLOB RATIO 1.3 (1.1-1.8); ALBUMIN 4.2 g/dL (3.0-4.8); CALCIUM 9.1 mg/dL (8.4-10.5)
[2017-10-30] MEDS: Multivitamin Vitamin B Complex (Nephro-Vite) Tab PO SCH ×2 (08:00→12:52)
[2017-10-30] MEDS ORDERED: Darbepoetin Alfa 25 mcg/ml Inj IVP ONE (08:17)
[2017-10-30] MEDS ORDERED: Iron Sucrose 100 mg/5 ml Inj IVP ONE (08:17)
[2017-10-30] MEDS ORDERED: Doxercalciferol 4 mcg/2 ml Inj IV ONE (08:17)
[2017-10-30] MEDS ORDERED: Doxercalciferol 4 mcg/2 ml Inj IVP ONE (08:22)
[2017-10-30] MEDS: NIFEdipine 90 mg ER Tab PO SCH ×3 (10:00→17:29)
[2017-10-30] MEDS: POLYETHYLENE GLYCOL 3350 17 GM/Dose PACKET PO SCH ×3 (10:00→17:10)
[2017-10-30] MEDS: Meropenem 500 MG in Sodium Chloride 0.9% 50 ML IVPB SCH ×3 (10:00→22:02)
[2017-10-30] MEDS: ETELCALCETIDE IVP SCH (11:08)
--- NOTE | 2017-10-30 11:24 | CP.PCM.PN ---
<Brittanie Guzman - Last Filed: 10/30/17 11:17> Subjective - Date & Time of Evaluation Date of Evaluation: 10/30/17 Time of Evaluation: 08:00 - Subjective Subjective: Progress Note for Hospitalist, Cehlo Guzman PGY2 Patient seen and examined at bedside. Yesterday patient had a L sided Midline placed. It was causing her a lot of pain and burning and it was removed as per her request. Today she complains of some vein distention in her L neck, but denies pain at that side. She complains of pain in her permacath site. Otherwise she denies chest pain, shortness of breath, nausea/vomiting/diarrhea, fever or chills, numbness or tingling. Objective - Vital Signs/Intake and Output Vital Signs (last 24 hours): Temp Pulse Resp BP Pulse Ox 98.2 F 90 20 145/102 H 95 10/30/17 05:21 10/30/17 05:21 10/30/17 05:21 10/30/17 05:21 10/30/17 05:21 Intake and Output: 10/30/17 10/30/17 06:59 18:59 Intake Total 540 Balance 540 - Medications Medications: Current Medications Acetaminophen (Tylenol 325mg Tab) 650 mg PO Q4 PRN PRN Reason: Pain, Mild (1-3) Carvedilol (Coreg) 6.25 mg PO 0800,1800 [facility] Last Admin: 10/30/17 08:00 Dose: Not Given Clonidine HCl (Catapres) 0.3 mg PO Q8 [facility] Last Admin: 10/30/17 06:00 Dose: Not Given Diphenhydramine HCl (Benadryl) 50 mg IVP BID PRN PRN Reason: Allergy symptoms Last Admin: 10/29/17 22:08 Dose: 50 mg Doxercalciferol (Hectorol) 2 mcg IVP MOWEFR [facility] Last Admin: 10/25/17 14:07 Dose: 2 mcg Etelcalcetide (Parsabiv) 5 mg IVP F [facility] Last Admin: 10/30/17 11:08 Dose: 5 mg Heparin Sodium (Porcine) (Heparin) 1,000 units IVP [facility] PRN Reason: Protocol Last Admin: 10/28/17 10:21 Dose: Not Given Hydralazine HCl (Apresoline) 25 mg PO Q4 PRN PRN Reason: Other Last Admin: 10/29/17 23:59 Dose: 25 mg Meropenem 500 mg/ Sodium (Chloride) 50 mls @ 100 mls/hr IVPB Q12 [facility] PRN Reason: Protocol Stop: 11/02/17 22:42 Last Admin: 10/29/17 22:07 Dose: 100 mls/hr Losartan Potassium (Cozaar) 50 mg PO DIN [facility] Last Admin: 10/29/17 18:02 Dose: 50 mg Minoxidil (Minoxidil) 2.5 mg PO DAILY [facility] Last Admin: 10/29/17 13:30 Dose: Not Given Morphine Sulfate (Morphine) 2 mg IVP Q6H PRN PRN Reason: Pain, severe (8-10) Last Admin: 10/30/17 05:56 Dose: 2 mg Nifedipine (Procardia Xl) 90 mg PO BID [facility] Last Admin: 10/29/17 18:04 Dose: 90 mg Ondansetron HCl (Zofran Inj) 4 mg IVP Q6H PRN PRN Reason: Nausea/Vomiting Last Admin: 10/29/17 23:53 Dose: 4 mg Pantoprazole Sodium (Protonix Ec Tab) 40 mg PO 0600 [facility] Last Admin: 10/30/17 05:46 Dose: 40 mg Polyethylene Glycol (Miralax) 17 gm PO BID [facility] Last Admin: 10/29/17 18:04 Dose: Not Given Sevelamer HCl (Renagel) 2,400 mg PO TID [facility] Last Admin: 10/29/17 18:02 Dose: 2,400 mg Terconazole (Terazol 3 (0.8%) Cream) 1 ea VG HS [facility] Last Admin: 10/29/17 23:00 Dose: Not Given Tramadol HCl (Ultram) 50 mg PO TID PRN PRN Reason: Pain, moderate (4-7) Last Admin: 10/30/17 08:15 Dose: 50 mg Vitamin B Complex/Vit C/Folic Acid (Nephro-Teresa) 1 tab PO 0800 [facility] Last Admin: 10/30/17 08:00 Dose: Not Given - Labs Labs: 10/30/17 06:30 10/30/17 06:30 PT 11.8 SECONDS (9.4-12.5) 10/24/17 16:32 INR 1.03 (0.93-1.08) 10/24/17 16:32 APTT 35.4 Seconds (25.1-36.5) 10/24/17 16:32 - Constitutional Appears: No Acute Distress - Head Exam Head Exam: ATRAUMATIC, NORMAL INSPECTION, NORMOCEPHALIC - Eye Exam Eye Exam: Normal appearance, PERRL Pupil Exam: NORMAL ACCOMODATION, PERRL - ENT Exam ENT Exam: Mucous Membranes Moist - Neck Exam Additional comments: L neck vein distention, pulse intact R permacath in place- clean and dry no drainage noted. - Respiratory Exam Respiratory Exam: Clear to Ausculation Bilateral, NORMAL BREATHING PATTERN. absent: Rales, Rhonchi, Wheezes - Cardiovascular Exam Cardiovascular Exam: REGULAR RHYTHM, +S1, +S2. absent: Gallop, Rubs, Murmur - GI/Abdominal Exam GI & Abdominal Exam: Soft, Normal Bowel Sounds. absent: Rigid, Tenderness, Mass , Rebound - Extremities Exam Extremities Exam: Normal Inspection. absent: Calf Tenderness, Pedal Edema - Neurological Exam Neurological Exam: Alert, Awake, CN II-XII Intact, Oriented x3 - Psychiatric Exam Psychiatric exam: Normal Affect, Normal Mood - Skin Skin Exam: Dry, Intact, Warm Assessment and Plan - Assessment and Plan (Free Text) Assessment: This is a 37 yo female with past medical history of HTN, possible hx of heart failure and CABG, failed renal transplant, ESRD on HD MWF, who was admitted for pseudomonas bactermia most secondary to infected permacath. She was also found to have cardiomyopathy with EF 30%. Plan: 1. Pseudomonas Bacteremia - secondary to infected permacath - afebrile, no leukocytosis - Upper extremity US: L cephalic vein superificial thrombophelbitis- no sign of thrombus - s/p catheter removal and new catheter placement in R neck - Peripheral blood culture showed one specimen with growth on coag neg staph which is resistant to multiple antibiotics - Repeat blood cultures pending - Echo was negative for any vegetation or thrombus - ID consulted- recs appreciated - Merrem 500mg Q12- Will need 10-14 days of Merrem. This is day #3 - Nephro consulted- recs appreciated - Patient had Midline placed in L arm yesterday which was painful and then removed - She will get line placed by IR today - Will continue pain control 2. Cardiomyopathy - Yfn [place]e - Echo showed EF 30% with severe LV and RV dysfunction and severe TR and pulm HTN - Cardio consulted- recs appreciated - As per cardio, patient should follow up with her house nurse in [place] for further management as outpatient 3. ESRD on HD MWF - s/p HD today - Nephro consulted- recs appreciated - Nephrovit, Renagel - Hecterol and Parsabiv during HD 4. Hx of HTN - Minoxidil added as per cardio - Continue Coreg, Clonidine, Procardia and Cozaar - Hydralazine 25mg PO Q4H prn 5. Vaginal discharge/itching (resolved) - Terazol cream prn 6. Constipation - Miralax prn GI ppx: Protonix DVT ppx: Heparin SC Dispo: She will need to continue to have IV antibiotics as outpatient to complete a 10-14day course. Plan is for midline placement for antibiotics by IR today. Patient will follow up with Dr. Sanford and her house nurse in [place] as outpatient. Case seen, discussed and reviewed with attending. Chelo Guzman PGY2 <Rio Orozco - Last Filed: 10/30/17 12:00> Objective - Vital Signs/Intake and Output Vital Signs (last 24 hours): Temp Pulse Resp BP Pulse Ox 98.2 F 90 20 145/102 H 95 10/30/17 05:21 10/30/17 05:21 10/30/17 05:21 10/30/17 05:21 10/30/17 05:21 Intake and Output: 10/30/17 10/30/17 06:59 18:59 Intake Total 540 Balance 540 - Medications Medications: Current Medications Acetaminophen (Tylenol 325mg Tab) 650 mg PO Q4 PRN PRN Reason: Pain, Mild (1-3) Carvedilol (Coreg) 6.25 mg PO 0800,1800 [facility] Last Admin: 10/30/17 08:00 Dose: Not Given Clonidine HCl (Catapres) 0.3 mg PO Q8 [facility] Last Admin: 10/30/17 06:00 Dose: Not Given Diphenhydramine HCl (Benadryl) 50 mg IVP BID PRN PRN Reason: Allergy symptoms Last Admin: 10/29/17 22:08 Dose: 50 mg Doxercalciferol (Hectorol) 2 mcg IVP [facility]OWEFR [facility] Last Admin: 10/25/17 14:07 Dose: 2 mcg Etelcalcetide (Parsabiv) 5 mg IVP MWF [facility] Last Admin: 10/30/17 11:08 Dose: 5 mg Heparin Sodium (Porcine) (Heparin) 1,000 units IVP [facility] PRN Reason: Protocol Last Admin: 10/28/17 10:21 Dose: Not Given Hydralazine HCl (Apresoline) 25 mg PO Q4 PRN PRN Reason: Other Last Admin: 10/29/17 23:59 Dose: 25 mg Hydromorphone HCl (Dilaudid) 1 mg IVP ONCE ONE Stop: 10/30/17 13:01 Meropenem 500 mg/ Sodium (Chloride) 50 mls @ 100 mls/hr IVPB Q12 [facility] PRN Reason: Protocol Stop: 11/02/17 22:42 Last Admin: 10/29/17 22:07 Dose: 100 mls/hr Losartan Potassium (Cozaar) 50 mg PO DIN [facility] Last Admin: 10/29/17 18:02 Dose: 50 mg Minoxidil (Minoxidil) 2.5 mg PO DAILY [facility] Last Admin: 10/29/17 13:30 Dose: Not Given Morphine Sulfate (Morphine) 2 mg IVP Q6H PRN PRN Reason: Pain, severe (8-10) Last Admin: 10/30/17 05:56 Dose: 2 mg Nifedipine (Procardia Xl) 90 mg PO BID [facility] Last Admin: 10/29/17 18:04 Dose: 90 mg Ondansetron HCl (Zofran Inj) 4 mg IVP Q6H PRN PRN Reason: Nausea/Vomiting Last Admin: 10/29/17 23:53 Dose: 4 mg Pantoprazole Sodium (Protonix Ec Tab) 40 mg PO 0600 [facility] Last Admin: 10/30/17 05:46 Dose: 40 mg Polyethylene Glycol (Miralax) 17 gm PO BID [facility] Last Admin: 10/29/17 18:04 Dose: Not Given Sevelamer HCl (Renagel) 2,400 mg PO TID [facility] Last Admin: 10/29/17 18:02 Dose: 2,400 mg Terconazole (Terazol 3 (0.8%) Cream) 1 ea VG HS [facility] Last Admin: 10/29/17 23:00 Dose: Not Given Tramadol HCl (Ultram) 50 mg PO TID PRN PRN Reason: Pain, moderate (4-7) Last Admin: 10/30/17 08:15 Dose: 50 mg Vitamin B Complex/Vit C/Folic Acid (Nephro-Teresa) 1 tab PO 0800 [facility] Last Admin: 10/30/17 08:00 Dose: Not Given Zolpidem Tartrate (Ambien) 5 mg PO HS PRN; Protocol PRN Reason: Insomnia - Labs Labs: 10/30/17 06:30 10/30/17 06:30 PT 11.8 SECONDS (9.4-12.5) 10/24/17 16:32 INR 1.03 (0.93-1.08) 10/24/17 16:32 APTT 35.4 Seconds (25.1-36.5) 10/24/17 16:32 Attending/Attestation - Attestation I have personally seen and examined this patient.: Yes I have fully participated in the care of the patient.: Yes I have reviewed all pertinent clinical information, including history, physical exam and plan: Yes Notes (Text): 10/30/17 11:58 37 year old female with past medical history of ESRD on HD, hypertension and anemia with history of renal transplant who presented with complaint of chills during dialysis. She was found to have Pseudomona aeruginosa bacteremia and started on iv antibiotics. 1 bottle blood culture was positive for gram positive cocci / coag negative staph. R/o contamination. Repeat blood culture was drawn yesterday. ID and nephrology are following. She is s/p catheter removal/exchange by IR. Plan is for IR midline today. Echocardiogram also showed cardiomyopathy for which cardiology is following. She is on coreg and cozaar. Rio Orozco MD Hospitalist.
[2017-10-30] MEDS: DiphenhydrAMINE 50 mg/ml Inj IVP PRN ×2 (12:53→20:34)
[2017-10-30] MEDS: Doxercalciferol 4 mcg/2 ml Inj IVP SCH (12:55)
[2017-10-30] MEDS ORDERED: HYDROmorphone 0.5 mg/0.5 ml ISec IVP ONE (13:00)
[2017-10-30] MEDS ORDERED: Lidocaine 2% Inj (20ml) ONE (13:48)
--- NOTE | 2017-10-30 14:15 | PN ---
DATE: 10/30/2017 SUBJECTIVE: Patient underwent hemodialysis today. She appears comfortable. PHYSICAL EXAMINATION: VITAL SIGNS: Blood pressure early this morning at 05:00 a.m. was 145/102, heart rate 90, temperature 98.2, respirations 20. HEENT: Pale conjunctivae. CHEST: Minimal basal rhonchi. HEART: S1 and S2 regular. EXTREMITIES: No edema. LABORATORY DATA: Hemoglobin and hematocrit 9.9 and 29.8, white count and platelet count are within normal limits. Today's BUN and creatinine prior to hemodialysis are 43 and 7.9. ASSESSMENT: 1. Dilated cardiomyopathy. 2. End-stage renal disease, on hemodialysis. 3. Gram-negative bacteremia. RECOMMENDATIONS: Continue hydralazine 25 g every 4 hours p.r.n., continue clonidine 0.2 mg every 8 hours, Coreg 6.25 mg twice a day, Cozaar 50 mg once a day, subcutaneous heparin 1000 units with each hemodialysis, minoxidil 2.5 mg daily, start Coumadin therapy and allow the patient one week of Coumadin supply until she show up in the clinic for a PT/INR followup, unless she prefers to follow with her criminology professor in [facility]. Bhargav Thrasher MD
--- NOTE | 2017-10-30 15:46 | CP.PCM.PN ---
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 Continue with Nephrovite 1 tab/day. HD time increased to 3.5 hrs, pt agreeable PRBC as needed for anemia. On ALVARO as weekly aransep with dialysis, last Hb 10 Continue with phos binders home dose, last phos level 4.1 Continue with hectorol and parsabiv with HD BP control with meds as ordered. Patient not on RAAS benito, she was prescribed as outpt but she doesn't take it. due to CHF, recommend to start losartan 50 mg/day and also add beta benito as coreg. Glycemic control, Dialysis consistent diet Further work up/management as per primary team Dose meds/antibiotics for ESRD status. Avoid fleets enema/magnesium based laxatives. ID following Thanks for allowing me to participate in care of your patient. Will follow patient with you. Please call if any Qs. d/w team Dr Yvon Sanford Office: [phone] HPI: Pt is a 37 F with hx of ESRD on hemodialysis (MWF) via permacath, last dialysis wed, chronic anemia, hyperphosphatemia, secondary hyperparathyroidism, hypertension presented with complaints of chills during dialysis and found to have gram negative bacteremia hence admitted for further eval. she c/o rash around ankles. also feels somewhat SOB, reports ankle swelling she is anuric also reports difficult access with hx of SVC reconstruction, left AVF thrombosis. 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 received a kidney transplant in 2005 (@ [place] with Dr Laird) which failed in 2016 and pt back on HD since then ROS: Cardiovascular: No chest pain. Pulmonary: denies shortness of breath Gastrointestinal: denies abdominal pain No nausea. No vomiting. Genitourinary: anuric All other negative Physical Examination: General Appearance: Comfortable, in no acute respiratory distress, co-operative . Vitals reviewed and noted as below Head; Atraumatic, normocephalic ENT: no ulcers no thrush. Tongue is midline. Oropharynx: no rash or ulcers. EYES: Pupils are equal, round and reactive to light accommodation. Eye muscles and extraocular movement intact. Sclera is anicteric. Neck; supple no lymphadenopathy, no thyromegaly or bruit. Lungs: Normal respiratory rate/effort. Breath sounds bilateral equal and clear Heart: Normal rate. s1s2 normal. No rub or gallop. chest midline scar noted Extremities: trace edema. No varicose veins Neurological: Patient is alert, awake and oriented to person, place and time. No focal deficit. Strength bilateral appropriate and equal Skin: Warm and dry. Normal turgor. Palpitation: Normal elasticity for age. Abdomen: Abdomen is soft. Bowel sounds +. There is no abdominal tenderness, no guarding/rigidity or organomegaly, no tenderness over RLQ renal allograft noted Psych: normal insight and normal affect/mood MSK: no joint tenderness or swelling. Digits and nails normal, no deformity : united [place] kidney or bladder not palpable Access: Rt permacath. left avf thrombosed. Labs/imaging reviewed. Past medical history, past surgical history, family history, social history, allergy reviewed and noted as below Family Hx: sister also on HD (pt says due to HUS) rest Non contributory Objective - Vital Signs/Intake and Output Vital Signs (last 24 hours): Temp Pulse Resp BP Pulse Ox 98.8 F 104 H 20 165/76 H 95 10/30/17 12:00 10/30/17 12:59 10/30/17 12:00 10/30/17 12:59 10/30/17 05:21 Intake and Output: 10/30/17 10/30/17 06:59 18:59 Intake Total 540 Balance 540 - Medications Medications: Current Medications Acetaminophen (Tylenol 325mg Tab) 650 mg PO Q4 PRN PRN Reason: Pain, Mild (1-3) Carvedilol (Coreg) 6.25 mg PO 0800,1800 [facility] Last Admin: 10/30/17 08:00 Dose: Not Given Clonidine HCl (Catapres) 0.3 mg PO Q8 [facility] Last Admin: 10/30/17 12:59 Dose: 0.3 mg Diphenhydramine HCl (Benadryl) 50 mg IVP BID PRN PRN Reason: Allergy symptoms Last Admin: 10/30/17 12:53 Dose: 50 mg Doxercalciferol (Hectorol) [facility] Last Admin: 10/30/17 12:55 Dose: Not Given Etelcalcetide (Parsabiv) 5 mg IVP [facility] Last Admin: 10/30/17 11:08 Dose: 5 mg Heparin Sodium (Porcine) (Heparin) 1,000 units IVP [facility] PRN Reason: Protocol Last Admin: 10/30/17 10:00 Dose: Not Given Hydralazine HCl (Apresoline) 25 mg PO Q4 PRN PRN Reason: Other Last Admin: 10/29/17 23:59 Dose: 25 mg Meropenem 500 mg/ Sodium (Chloride) 50 mls @ 100 mls/hr IVPB Q12 [facility] PRN Reason: Protocol Stop: 11/02/17 22:42 Last Admin: 10/30/17 12:51 Dose: 100 mls/hr Losartan Potassium (Cozaar) 50 mg PO DIN [facility] Last Admin: 10/29/17 18:02 Dose: 50 mg Minoxidil (Minoxidil) 2.5 mg PO DAILY [facility] Last Admin: 10/30/17 10:00 Dose: Not Given Morphine Sulfate (Morphine) 2 mg IVP Q6H PRN PRN Reason: Pain, severe (8-10) Last Admin: 10/30/17 05:56 Dose: 2 mg Nifedipine (Procardia Xl) 90 mg PO BID [facility] Last Admin: 10/30/17 12:53 Dose: 90 mg Ondansetron HCl (Zofran Inj) 4 mg IVP Q6H PRN PRN Reason: Nausea/Vomiting Last Admin: 10/29/17 23:53 Dose: 4 mg Pantoprazole Sodium (Protonix Ec Tab) 40 mg PO 0600 [facility] Last Admin: 10/30/17 05:46 Dose: 40 mg Polyethylene Glycol (Miralax) 17 gm PO BID [facility] Last Admin: 10/30/17 10:00 Dose: Not Given Sevelamer HCl (Renagel) 2,400 mg PO TID [facility] Last Admin: 10/30/17 15:31 Dose: Not Given Terconazole (Terazol 3 (0.8%) Cream) 1 ea VG HS [facility] Last Admin: 10/29/17 23:00 Dose: Not Given Tramadol HCl (Ultram) 50 mg PO TID PRN PRN Reason: Pain, moderate (4-7) Last Admin: 10/30/17 08:15 Dose: 50 mg Vitamin B Complex/Vit C/Folic Acid (Nephro-Teresa) 1 tab PO 0800 [facility] Last Admin: 10/30/17 12:52 Dose: 1 tab Warfarin Sodium (Coumadin) 5 mg PO 1800 [facility] PRN Reason: Protocol Zolpidem Tartrate (Ambien) 5 mg PO HS PRN; Protocol PRN Reason: Insomnia - Labs Labs: 10/30/17 06:30 10/30/17 06:30 PT 11.8 SECONDS (9.4-12.5) 10/24/17 16:32 INR 1.03 (0.93-1.08) 10/24/17 16:32 APTT 35.4 Seconds (25.1-36.5) 10/24/17 16:32
--- NOTE | 2017-10-30 15:46 | CP.PCM.PN ---
Subjective - Date & Time of Evaluation Date of Evaluation: 10/30/17 Time of Evaluation: 10:20 - Subjective Subjective: Comfortable, afebrile, to have a midline placed. Objective - Vital Signs/Intake and Output Vital Signs (last 24 hours): Temp Pulse Resp BP Pulse Ox 98.8 F 104 H 20 165/76 H 95 10/30/17 12:00 10/30/17 12:59 10/30/17 12:00 10/30/17 12:59 10/30/17 05:21 Intake and Output: 10/30/17 10/30/17 06:59 18:59 Intake Total 540 Balance 540 - Medications Medications: Current Medications Acetaminophen (Tylenol 325mg Tab) 650 mg PO Q4 PRN PRN Reason: Pain, Mild (1-3) Carvedilol (Coreg) 6.25 mg PO 0800,1800 [facility] Last Admin: 10/30/17 08:00 Dose: Not Given Clonidine HCl (Catapres) 0.3 mg PO Q8 [facility] Last Admin: 10/30/17 12:59 Dose: 0.3 mg Diphenhydramine HCl (Benadryl) 50 mg IVP BID PRN PRN Reason: Allergy symptoms Last Admin: 10/30/17 12:53 Dose: 50 mg Doxercalciferol (Hectorol) 2 mcg IVP MOWEFR [facility] Last Admin: 10/30/17 12:55 Dose: Not Given Etelcalcetide (Parsabiv) 5 mg IVP MWF [facility] Last Admin: 10/30/17 11:08 Dose: 5 mg Heparin Sodium (Porcine) (Heparin) 1,000 units IVP [facility] PRN Reason: Protocol Last Admin: 10/30/17 10:00 Dose: Not Given Hydralazine HCl (Apresoline) 25 mg PO Q4 PRN PRN Reason: Other Last Admin: 10/29/17 23:59 Dose: 25 mg Meropenem 500 mg/ Sodium (Chloride) 50 mls @ 100 mls/hr IVPB Q12 [facility] PRN Reason: Protocol Stop: 11/02/17 22:42 Last Admin: 10/30/17 12:51 Dose: 100 mls/hr Losartan Potassium (Cozaar) 50 mg PO DIN [facility] Last Admin: 10/29/17 18:02 Dose: 50 mg Minoxidil (Minoxidil) 2.5 mg PO DAILY [facility] Last Admin: 10/30/17 10:00 Dose: Not Given Morphine Sulfate (Morphine) 2 mg IVP Q6H PRN PRN Reason: Pain, severe (8-10) Last Admin: 10/30/17 05:56 Dose: 2 mg Nifedipine (Procardia Xl) 90 mg PO BID [facility] Last Admin: 10/30/17 12:53 Dose: 90 mg Ondansetron HCl (Zofran Inj) 4 mg IVP Q6H PRN PRN Reason: Nausea/Vomiting Last Admin: 10/29/17 23:53 Dose: 4 mg Pantoprazole Sodium (Protonix Ec Tab) 40 mg PO 0600 [facility] Last Admin: 10/30/17 05:46 Dose: 40 mg Polyethylene Glycol (Miralax) 17 gm PO BID [facility] Last Admin: 10/30/17 10:00 Dose: Not Given Sevelamer HCl (Renagel) 2,400 mg PO TID [facility] Last Admin: 10/30/17 15:31 Dose: Not Given Terconazole (Terazol 3 (0.8%) Cream) 1 ea VG HS [facility] Last Admin: 10/29/17 23:00 Dose: Not Given Tramadol HCl (Ultram) 50 mg PO TID PRN PRN Reason: Pain, moderate (4-7) Last Admin: 10/30/17 08:15 Dose: 50 mg Vitamin B Complex/Vit C/Folic Acid (Nephro-Teresa) 1 tab PO 0800 [facility] Last Admin: 10/30/17 12:52 Dose: 1 tab Warfarin Sodium (Coumadin) 5 mg PO 1800 [facility] PRN Reason: Protocol Zolpidem Tartrate (Ambien) 5 mg PO HS PRN; Protocol PRN Reason: Insomnia - Labs Labs: 10/30/17 06:30 10/30/17 06:30 PT 11.8 SECONDS (9.4-12.5) 10/24/17 16:32 INR 1.03 (0.93-1.08) 10/24/17 16:32 APTT 35.4 Seconds (25.1-36.5) 10/24/17 16:32 - Constitutional Appears: Non-toxic, Chronically Ill - Head Exam Head Exam: NORMAL INSPECTION - Respiratory Exam Respiratory Exam: Decreased Breath Sounds - Cardiovascular Exam Cardiovascular Exam: +S1, +S2 - GI/Abdominal Exam GI & Abdominal Exam: Soft. absent: Tenderness Assessment and Plan - Assessment and Plan (Free Text) Plan: Assessment Pseudomonas bacteremia, suspicious for HD catheter-related bacteremia, S/P removal of catheter and replacement consider rolando vaginitis HTN ESRD on HD history of hemolytic uremic syndrome chronic anemia S/P kidney transplant history of breast implants Plan continue Merrem; repeat blood cx are negative; will need total 10-14 days of antibiotics - discussed with medical team
[2017-10-30] MEDS ORDERED: HYDROmorphone 0.5 mg/0.5 ml ISec IVP STA (18:33)
[2017-10-30] MEDS: TERCONAZOLE 0.8% VG SCH (21:49)
[2017-10-31] MEDS: Pantoprazole 40 mg EC Tab PO SCH (06:03)
[2017-10-31] MEDS: Morphine 4 mg/ml ISec IVP PRN (06:03)
[2017-10-31] MEDS: DiphenhydrAMINE 50 mg/ml Inj IVP PRN (06:30)
[2017-10-31 06:44] VITALS: O2SAT 98
[2017-10-31 07:04] LABS: BASO # 0.04 K/mm3 (0.0-2.0); EOS # 0.3 (0.0-0.7); EOS % 6.7 % (1.5-5.0); GRAN # 2.34 (1.4-6.5); GRAN % 55.4 % (50.0-68.0); LYMPH % 23.8 % (22.0-35.0); MEAN CELL VOLUME 93.9 fl (80.0-105.0); MEAN CORPUSCULAR HEMOGLOBIN 30.6 pg (25.0-35.0); MEAN CORPUSCULAR HGB CONC 32.6 g/dl (31.0-37.0); MEAN PLATELET VOLUME 9.6 fl (7.0-11.0); MONO # 0.6 (0.1-0.6); MONO % 13.1 % (1.0-6.0); RBC 3.27 10^6/uL (3.5-6.1); RED CELL DISTRIBUTION WIDTH 16.7 % (11.5-14.5); WHITE BLOOD COUNT 4.2 10^3/ul (4.5-11.0)
[2017-10-31 07:21] LABS: INR 1.1 (0.93-1.08); PROTHROMBIN TIME 12.7 SECONDS (9.4-12.5)
[2017-10-31 07:38] LABS: ALB/GLOB RATIO 1.2 (1.1-1.8); CALCIUM 8.7 mg/dL (8.4-10.5)
[2017-10-31] MEDS ORDERED: Morphine 4 mg/ml ISec IVP PRN (08:23)
--- NOTE | 2017-10-31 08:36 | CP.PCM.PN ---
Objective - Vital Signs/Intake and Output Vital Signs (last 24 hours): Temp Pulse Resp BP Pulse Ox 98.2 F 95 H 20 156/96 H 98 10/31/17 06:00 10/31/17 06:03 10/31/17 06:00 10/31/17 06:03 10/31/17 06:00 Intake and Output: 10/31/17 10/31/17 06:59 18:59 Intake Total 920 Balance 920 - Medications Medications: Current Medications Acetaminophen (Tylenol 325mg Tab) 650 mg PO Q4 PRN PRN Reason: Pain, Mild (1-3) Carvedilol (Coreg) 6.25 mg PO 0800,1800 [facility] Last Admin: 10/30/17 17:27 Dose: 6.25 mg Clonidine HCl (Catapres) 0.3 mg PO Q8 [facility] Last Admin: 10/31/17 06:03 Dose: 0.3 mg Diphenhydramine HCl (Benadryl) 50 mg IVP BID PRN PRN Reason: Allergy symptoms Last Admin: 10/31/17 06:30 Dose: 50 mg Doxercalciferol (Hectorol) 2 mcg IVP MOWEFR [facility] Last Admin: 10/30/17 12:55 Dose: Not Given Etelcalcetide (Parsabiv) 5 mg IVP MWF [facility] Last Admin: 10/30/17 11:08 Dose: 5 mg Heparin Sodium (Porcine) (Heparin) 1,000 units IVP [facility] [place] PRN Reason: Protocol Last Admin: 10/30/17 10:00 Dose: Not Given Hydralazine HCl (Apresoline) 25 mg PO Q4 PRN PRN Reason: Other Last Admin: 10/29/17 23:59 Dose: 25 mg Meropenem 500 mg/ Sodium (Chloride) 50 mls @ 100 mls/hr IVPB Q12 [facility] PRN Reason: Protocol Stop: 11/02/17 22:42 Last Admin: 10/30/17 22:02 Dose: 100 mls/hr Losartan Potassium (Cozaar) 50 mg PO DIN [facility] Last Admin: 10/30/17 17:28 Dose: 50 mg Minoxidil (Minoxidil) 2.5 mg PO DAILY [facility] Last Admin: 10/30/17 10:00 Dose: Not Given Morphine Sulfate (Morphine) 1 mg IVP Q4H PRN PRN Reason: Pain, severe (8-10) Nifedipine (Procardia Xl) 90 mg PO BID [facility] Last Admin: 10/30/17 17:29 Dose: 90 mg Ondansetron HCl (Zofran Inj) 4 mg IVP Q6H PRN PRN Reason: Nausea/Vomiting Last Admin: 10/31/17 06:31 Dose: 4 mg Pantoprazole Sodium (Protonix Ec Tab) 40 mg PO 0600 [facility] Last Admin: 10/31/17 06:03 Dose: 40 mg Polyethylene Glycol (Miralax) 17 gm PO BID [facility] Last Admin: 10/30/17 17:10 Dose: Not Given Sevelamer HCl (Renagel) 2,400 mg PO TID [facility] Last Admin: 10/30/17 17:29 Dose: 2,400 mg Terconazole (Terazol 3 (0.8%) Cream) 1 ea VG HS [facility] Last Admin: 10/30/17 21:49 Dose: 1 applic Tramadol HCl (Ultram) 50 mg PO TID PRN PRN Reason: Pain, moderate (4-7) Last Admin: 10/30/17 08:15 Dose: 50 mg Vitamin B Complex/Vit C/Folic Acid (Nephro-Teresa) 1 tab PO 0800 [facility] Last Admin: 10/30/17 12:52 Dose: 1 tab Warfarin Sodium (Coumadin) 5 mg PO 1800 [facility] PRN Reason: Protocol Last Admin: 10/30/17 17:29 Dose: 5 mg Zolpidem Tartrate (Ambien) 5 mg PO HS PRN; Protocol PRN Reason: Insomnia Last Admin: 10/30/17 23:53 Dose: 5 mg - Labs Labs: 10/31/17 06:00 10/31/17 06:00 PT 12.7 SECONDS (9.4-12.5) H 10/31/17 06:00 INR 1.10 (0.93-1.08) H 10/31/17 06:00 APTT 35.4 Seconds (25.1-36.5) 10/24/17 16:32
--- NOTE | 2017-10-31 08:59 | PN ---
DATE: 10/30/2017 TIME: 02:25 p.m. SUBJECTIVE: Ms. Murillo recently had her tunneled catheter changed due to sepsis and infection. I met her in the holding area concerning PICC placement. She is a difficult venous access and has had by report an SVC venous reconstruction. I would strongly advise against additional central venous catheters. She should be managed with midline catheters if at all possible. Another attempt at a midline catheter shoulder be performed. This was relayed to the PICC line service. Jamir Luz MD
[2017-10-31] MEDS: Meropenem 500 MG in Sodium Chloride 0.9% 50 ML IVPB SCH (09:15)
[2017-10-31] MEDS: Multivitamin Vitamin B Complex (Nephro-Vite) Tab PO SCH (09:16)
[2017-10-31] MEDS: NIFEdipine 90 mg ER Tab PO SCH (09:17)
[2017-10-31] MEDS: POLYETHYLENE GLYCOL 3350 17 GM/Dose PACKET PO SCH (09:18)
[2017-10-31] MEDS ORDERED: Morphine 4 mg/ml ISec IVP ONE (11:47)
--- NOTE | 2017-10-31 11:53 | CP.PCM.PN ---
Subjective - Date & Time of Evaluation Date of Evaluation: 10/31/17 Time of Evaluation: 11:51 - Subjective Subjective: Nephrology Consultation Note: Assessment: stable Psuedomonas Sepsis likely source as permacath infection s/p new permacath insertion 10/28/2017 Hypertensive Chronic Kidney Disease (I12.0) End stage renal disease (N18.6) dependence on hemodialysis (Z99.2) (MWF) via permacath Anemia (D64.9), Hyperphosphatemia (E83.39), Secondary Hyperparathyroidism (E21.1 ), HTN (I12.0) hx of kidney transplant [id number] hx of SVC reconstruction severe pHTN and systolic CHF EF 31% Plan: HD tomorrow as ordered. Continue with Nephrovite 1 tab/day. HD time increased to 3.5 hrs, pt agreeable PRBC as needed for anemia. On ALVARO as weekly aransep with dialysis, last Hb 10 Continue with phos binders home dose, last phos level 4.1 Continue with hectorol and parsabiv with HD BP control with meds as ordered. Patient not on RAAS benito, she was prescribed as outpt but she doesn't take it. due to CHF, recommended to start losartan 50 mg/day and also add beta benito as coreg. Glycemic control, Dialysis consistent diet Further work up/management as per primary team Dose meds/antibiotics for ESRD status. Avoid fleets enema/magnesium based laxatives. ID, cardiology following Thanks for allowing me to participate in care of your patient. Will follow patient with you. Please call if any Qs. d/w team Dr Yvon Sanford Office: [phone] HPI: Pt is a 37 F with hx of ESRD on hemodialysis (MWF) via permacath, last dialysis wed, chronic anemia, hyperphosphatemia, secondary hyperparathyroidism, hypertension presented with complaints of chills during dialysis and found to have gram negative bacteremia hence admitted for further eval. she c/o rash around ankles. also feels somewhat SOB, reports ankle swelling she is anuric also reports difficult access with hx of SVC reconstruction, left AVF thrombosis. 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 received a kidney transplant in 2005 (@ [place] with Dr Laird) which failed in 2016 and pt back on HD since then ROS: Cardiovascular: No chest pain. Pulmonary: denies shortness of breath Gastrointestinal: denies abdominal pain No nausea. No vomiting. Genitourinary: anuric All other negative. c/o throbbing pain at permacath site. Physical Examination: General Appearance: Comfortable, in no acute respiratory distress, co-operative . Vitals reviewed and noted as below Head; Atraumatic, normocephalic ENT: no ulcers no thrush. Tongue is midline. Oropharynx: no rash or ulcers. EYES: Pupils are equal, round and reactive to light accommodation. Eye muscles and extraocular movement intact. Sclera is anicteric. Neck; supple no lymphadenopathy, no thyromegaly or bruit. Lungs: Normal respiratory rate/effort. Breath sounds bilateral equal and clear Heart: Normal rate. s1s2 normal. No rub or gallop. chest midline scar noted Extremities: no edema. No varicose veins Neurological: Patient is alert, awake and oriented to person, place and time. No focal deficit. Strength bilateral appropriate and equal Skin: Warm and dry. Normal turgor. Palpitation: Normal elasticity for age. Abdomen: Abdomen is soft. Bowel sounds +. There is no abdominal tenderness, no guarding/rigidity or organomegaly, no tenderness over RLQ renal allograft noted Psych: normal insight and normal affect/mood MSK: no joint tenderness or swelling. Digits and nails normal, no deformity : [place] kidney or bladder not palpable Access: Rt permacath. left avf thrombosed. Labs/imaging reviewed. Past medical history, past surgical history, family history, social history, allergy reviewed and noted as below Family Hx: sister also on HD (pt says due to HUS) rest Non contributory Objective - Vital Signs/Intake and Output Vital Signs (last 24 hours): Temp Pulse Resp BP Pulse Ox 98.2 F 84 20 146/105 H 98 10/31/17 06:00 10/31/17 09:17 10/31/17 06:00 10/31/17 09:17 10/31/17 06:00 Intake and Output: 10/31/17 10/31/17 06:59 18:59 Intake Total 920 Balance 920 - Medications Medications: Current Medications Acetaminophen (Tylenol 325mg Tab) 650 mg PO Q4 PRN PRN Reason: Pain, Mild (1-3) Carvedilol (Coreg) 6.25 mg PO 0800,1800 [facility] Last Admin: 10/31/17 09:17 Dose: 6.25 mg Clonidine HCl (Catapres) 0.3 mg PO Q8 [facility] Last Admin: 10/31/17 06:03 Dose: 0.3 mg Diphenhydramine HCl (Benadryl) 50 mg IVP BID PRN PRN Reason: Allergy symptoms Last Admin: 10/31/17 06:30 Dose: 50 mg Doxercalciferol (Hectorol) 2 mcg IVP [facility] Last Admin: 10/30/17 12:55 Dose: Not Given Etelcalcetide (Parsabiv) 5 mg IVP [facility] Last Admin: 10/30/17 11:08 Dose: 5 mg Heparin Sodium (Porcine) (Heparin) 1,000 units IVP [facility] [place]N Reason: Protocol Last Admin: 10/30/17 10:00 Dose: Not Given Hydralazine HCl (Apresoline) 25 mg PO Q4 PRN PRN Reason: Other Last Admin: 10/29/17 23:59 Dose: 25 mg Losartan Potassium (Cozaar) 50 mg PO DIN [facility] Last Admin: 10/30/17 17:28 Dose: 50 mg Minoxidil (Minoxidil) 2.5 mg PO DAILY [facility] Last Admin: 10/31/17 09:18 Dose: Not Given Nifedipine (Procardia Xl) 90 mg PO BID [facility] Last Admin: 10/31/17 09:17 Dose: 90 mg Ondansetron HCl (Zofran Inj) 4 mg IVP Q6H PRN PRN Reason: Nausea/Vomiting Last Admin: 10/31/17 06:31 Dose: 4 mg Pantoprazole Sodium (Protonix Ec Tab) 40 mg PO 0600 [facility] Last Admin: 10/31/17 06:03 Dose: 40 mg Polyethylene Glycol (Miralax) 17 gm PO BID [facility] Last Admin: 10/31/17 09:18 Dose: Not Given Sevelamer HCl (Renagel) 2,400 mg PO TID [facility] Last Admin: 10/31/17 09:16 Dose: 2,400 mg Terconazole (Terazol 3 (0.8%) Cream) 1 ea VG HS [facility] Last Admin: 10/30/17 21:49 Dose: 1 applic Tramadol HCl (Ultram) 50 mg PO TID PRN PRN Reason: Pain, moderate (4-7) Last Admin: 10/30/17 08:15 Dose: 50 mg Vitamin B Complex/Vit C/Folic Acid (Nephro-Teresa) 1 tab PO 0800 [facility] Last Admin: 10/31/17 09:16 Dose: 1 tab Zolpidem Tartrate (Ambien) 5 mg PO HS PRN; Protocol PRN Reason: Insomnia Last Admin: 10/30/17 23:53 Dose: 5 mg - Labs Labs: 10/31/17 06:00 10/31/17 06:00 PT 12.7 SECONDS (9.4-12.5) H 10/31/17 06:00 INR 1.10 (0.93-1.08) H 10/31/17 06:00 APTT 35.4 Seconds (25.1-36.5) 10/24/17 16:32
[2017-10-31] MEDS ORDERED: Cefepime 1gm in NS 100ml 1 GM/100 ML BAG IVPB SCH (12:00)
--- NOTE | 2017-10-31 12:11 | CP.PCM.PN ---
<Brittanie Guzman - Last Filed: 10/31/17 13:51> Subjective - Date & Time of Evaluation Date of Evaluation: 10/31/17 Time of Evaluation: 07:00 - Subjective Subjective: Progress Note for Hospitalist, Chelo Guzman PGY2 Patient seen and examined at bedside. Patient was supposed to have Midline placed in R arm, but was unable to be threaded. Patient reports having pain at permacath site in R neck, but it resting comfortably on exam. She states she would like to go home and try the midline one more time today. She denies chest pain, shortness of breath, nausea/vomiting/diarrhea, fever or chills, numbness or tingling. Patient was having some itching with the Merrem, but no visual rash. Patient is refusing to get midline unless she gets IV Dilaudid. She was given morphine 1mg one dose and then started to refuse her midline unless she gets Dilaudid. Patient is resting comfortably in bed and able to ambulate without any issues. Midline was attempted and unsuccessful for the 3rd time. Objective - Vital Signs/Intake and Output Vital Signs (last 24 hours): Temp Pulse Resp BP Pulse Ox 98.2 F 84 20 146/105 H 98 10/31/17 06:00 10/31/17 09:17 10/31/17 06:00 10/31/17 09:17 10/31/17 06:00 Intake and Output: 10/31/17 10/31/17 06:59 18:59 Intake Total 920 Balance 920 - Medications Medications: Current Medications Acetaminophen (Tylenol 325mg Tab) 650 mg PO Q4 PRN PRN Reason: Pain, Mild (1-3) Carvedilol (Coreg) 6.25 mg PO 0800,1800 [facility] Last Admin: 10/31/17 09:17 Dose: 6.25 mg Clonidine HCl (Catapres) 0.3 mg PO Q8 [facility] Last Admin: 10/31/17 06:03 Dose: 0.3 mg Diphenhydramine HCl (Benadryl) 50 mg IVP BID PRN PRN Reason: Allergy symptoms Last Admin: 10/31/17 06:30 Dose: 50 mg Doxercalciferol (Hectorol) 2 mcg IVP MOWEFR [facility] Last Admin: 10/30/17 12:55 Dose: Not Given Etelcalcetide (Parsabiv) 5 mg IVP MWF [facility] Last Admin: 10/30/17 11:08 Dose: 5 mg Heparin Sodium (Porcine) (Heparin) 1,000 units IVP [facility] [place]N Reason: Protocol Last Admin: 10/30/17 10:00 Dose: Not Given Hydralazine HCl (Apresoline) 25 mg PO Q4 PRN PRN Reason: Other Last Admin: 10/29/17 23:59 Dose: 25 mg Cefepime HCl (Maxipime 1gm) 1 gm in 100 mls @ 100 mls/hr IVPB Q24H [facility] PRN Reason: Protocol Losartan Potassium (Cozaar) 50 mg PO DIN [facility] Last Admin: 10/30/17 17:28 Dose: 50 mg Minoxidil (Minoxidil) 2.5 mg PO DAILY [facility] Last Admin: 10/31/17 09:18 Dose: Not Given Nifedipine (Procardia Xl) 90 mg PO BID [facility] Last Admin: 10/31/17 09:17 Dose: 90 mg Ondansetron HCl (Zofran Inj) 4 mg IVP Q6H PRN PRN Reason: Nausea/Vomiting Last Admin: 10/31/17 06:31 Dose: 4 mg Pantoprazole Sodium (Protonix Ec Tab) 40 mg PO 0600 [facility] Last Admin: 10/31/17 06:03 Dose: 40 mg Polyethylene Glycol (Miralax) 17 gm PO BID [facility] Last Admin: 10/31/17 09:18 Dose: Not Given Sevelamer HCl (Renagel) 2,400 mg PO TID [facility] Last Admin: 10/31/17 09:16 Dose: 2,400 mg Terconazole (Terazol 3 (0.8%) Cream) 1 ea VG HS [facility] Last Admin: 10/30/17 21:49 Dose: 1 applic Tramadol HCl (Ultram) 50 mg PO TID PRN PRN Reason: Pain, moderate (4-7) Last Admin: 10/30/17 08:15 Dose: 50 mg Vitamin B Complex/Vit C/Folic Acid (Nephro-Teresa) 1 tab PO 0800 [facility] Last Admin: 10/31/17 09:16 Dose: 1 tab Zolpidem Tartrate (Ambien) 5 mg PO HS PRN; Protocol PRN Reason: Insomnia Last Admin: 10/30/17 23:53 Dose: 5 mg - Labs Labs: 10/31/17 06:00 10/31/17 06:00 PT 12.7 SECONDS (9.4-12.5) H 10/31/17 06:00 INR 1.10 (0.93-1.08) H 10/31/17 06:00 APTT 35.4 Seconds (25.1-36.5) 10/24/17 16:32 - Constitutional Appears: No Acute Distress - Head Exam Head Exam: ATRAUMATIC, NORMAL INSPECTION, NORMOCEPHALIC - Eye Exam Eye Exam: Normal appearance, PERRL Pupil Exam: NORMAL ACCOMODATION - ENT Exam ENT Exam: Mucous Membranes Moist - Neck Exam Additional comments: R permacath in place- clean and dry - Respiratory Exam Respiratory Exam: Clear to Ausculation Bilateral, NORMAL BREATHING PATTERN. absent: Rales, Rhonchi, Wheezes - Cardiovascular Exam Cardiovascular Exam: REGULAR RHYTHM, +S1, +S2. absent: Gallop, Rubs, Murmur - GI/Abdominal Exam GI & Abdominal Exam: Soft, Normal Bowel Sounds. absent: Rigid, Tenderness, Mass , Rebound - Extremities Exam Extremities Exam: Normal Inspection. absent: Calf Tenderness, Pedal Edema - Neurological Exam Neurological Exam: Alert, Awake, CN II-XII Intact, Normal Gait, Oriented x3 - Psychiatric Exam Psychiatric exam: Normal Affect, Normal Mood - Skin Skin Exam: Dry, Warm Assessment and Plan - Assessment and Plan (Free Text) Assessment: This is a 37 yo female with past medical history of HTN, possible hx of heart failure and CABG, failed renal transplant, ESRD on HD MWF, who was admitted for pseudomonas bactermia most secondary to infected permacath. She was also found to have cardiomyopathy with EF 30%. Plan: 1. Pseudomonas Bacteremia - secondary to infected permacath - s/p catheter removal and new catheter placement in R neck - UE US: L cephalic vein superificial thrombophelbitis- no sign of thrombus - Echo was negative for any vegetation or thrombus - Peripheral BC showed one specimen with growth on coag neg staph which is resistant to multiple antibiotics - Repeat blood cultures are negative thus far - ID consulted- recs appreciated - Patient having itching with Merrem- will switch to Cefepime 1mg q24hrs as per ID - Has had 4 days of antibiotics- will need total of 10-14 days - Patient does not have IV access to go home for outpatient IV antibiotics ( tried 3-4 times to do midline and was unsuccessful) - Nephro consulted- recs appreciated - Patient possibly seeking for IV pain meds- she is not in any visible pain- will only give Tramadol as needed - Avoid any IV pain medication or IV benadryl 2. Cardiomyopathy - Cozaar, Coreg - Echo showed EF 30% with severe LV and RV dysfunction and severe TR and pulm HTN - Cardio consulted- recs appreciated - As per cardio, patient should follow up with her strap maker in [place] for further management as outpatient - As per cardio, patient should be started on coumadin and Minoxidil- patient is refusing and wants a second opinion 3. ESRD on HD MWF - Continue HD as scheduled - Nephro consulted- recs appreciated - Nephrovit, Renagel - Hecterol and Parsabiv during HD 4. Hx of HTN - Minoxidil added as per cardio but patient refusing - Continue Coreg, Clonidine, Procardia and Cozaar - Hydralazine 25mg PO Q4H prn 5. Constipation - Miralax prn GI ppx: Protonix DVT ppx: Heparin SC Dispo: She will need to continue to have IV antibiotics as outpatient to complete a 10-14day course. Patient will follow up with Dr. Sanford and her strap maker in [place] as outpatient. Case seen, discussed and reviewed with attending. Chelo Guzman PGY2 <Rio Orozco - Last Filed: 10/31/17 14:23> Objective - Vital Signs/Intake and Output Vital Signs (last 24 hours): Temp Pulse Resp BP Pulse Ox 98.3 F 80 18 138/100 H 98 10/31/17 12:00 10/31/17 12:00 10/31/17 12:00 10/31/17 12:00 10/31/17 06:00 Intake and Output: 10/31/17 10/31/17 06:59 18:59 Intake Total 920 Balance 920 - Medications Medications: Current Medications Acetaminophen (Tylenol 325mg Tab) 650 mg PO Q4 PRN PRN Reason: Pain, Mild (1-3) Carvedilol (Coreg) 6.25 mg PO 0800,1800 [facility] Last Admin: 10/31/17 09:17 Dose: 6.25 mg Clonidine HCl (Catapres) 0.3 mg PO Q8 [facility] Last Admin: 10/31/17 06:03 Dose: 0.3 mg Diphenhydramine HCl (Benadryl) 50 mg IVP BID PRN PRN Reason: Allergy symptoms Last Admin: 10/31/17 06:30 Dose: 50 mg Doxercalciferol (Hectorol) 2 mcg IVP [facility] Last Admin: 10/30/17 12:55 Dose: Not Given Etelcalcetide (Parsabiv) 5 mg IVP F [facility] Last Admin: 10/30/17 11:08 Dose: 5 mg Heparin Sodium (Porcine) (Heparin) 1,000 units [place]P [facility] PRN Reason: Protocol Last Admin: 10/30/17 10:00 Dose: Not Given Hydralazine HCl (Apresoline) 25 mg PO Q4 PRN PRN Reason: Other Last Admin: 10/29/17 23:59 Dose: 25 mg Cefepime HCl (Maxipime 1gm) 1 gm in 100 mls @ 100 mls/hr IVPB Q24H [facility] PRN Reason: Protocol Losartan Potassium (Cozaar) 50 mg PO DIN [facility] Last Admin: 10/30/17 17:28 Dose: 50 mg Minoxidil (Minoxidil) 2.5 mg PO DAILY [facility] Last Admin: 10/31/17 09:18 Dose: Not Given Nifedipine (Procardia Xl) 90 mg PO BID [facility] Last Admin: 10/31/17 09:17 Dose: 90 mg Ondansetron HCl (Zofran Inj) 4 mg IVP Q6H PRN PRN Reason: Nausea/Vomiting Last Admin: 10/31/17 06:31 Dose: 4 mg Pantoprazole Sodium (Protonix Ec Tab) 40 mg PO 0600 [facility] Last Admin: 10/31/17 06:03 Dose: 40 mg Polyethylene Glycol (Miralax) 17 gm PO BID [facility] Last Admin: 10/31/17 09:18 Dose: Not Given Sevelamer HCl (Renagel) 2,400 mg PO TID [facility] Last Admin: 10/31/17 09:16 Dose: 2,400 mg Terconazole (Terazol 3 (0.8%) Cream) 1 ea VG HS [facility] Last Admin: 10/30/17 21:49 Dose: 1 applic Tramadol HCl (Ultram) 50 mg PO TID PRN PRN Reason: Pain, moderate (4-7) Last Admin: 10/30/17 08:15 Dose: 50 mg Vitamin B Complex/Vit C/Folic Acid (Nephro-Teresa) 1 tab PO 0800 [facility] Last Admin: 10/31/17 09:16 Dose: 1 tab Zolpidem Tartrate (Ambien) 5 mg PO HS PRN; Protocol PRN Reason: Insomnia Last Admin: 10/30/17 23:53 Dose: 5 mg - Labs Labs: 10/31/17 06:00 10/31/17 06:00 PT 12.7 SECONDS (9.4-12.5) H 10/31/17 06:00 INR 1.10 (0.93-1.08) H 10/31/17 06:00 APTT 35.4 Seconds (25.1-36.5) 10/24/17 16:32 Attending/Attestation - Attestation I have personally seen and examined this patient.: Yes I have fully participated in the care of the patient.: Yes I have reviewed all pertinent clinical information, including history, physical exam and plan: Yes Notes (Text): 10/31/17 14:20 37 year old female with past medical history of ESRD on HD, hypertension and anemia with history of renal transplant who presented with complaint of chills during dialysis. She was found to have Pseudomona aeruginosa bacteremia and started on iv antibiotics. 1 bottle blood culture was positive for gram positive cocci / coag negative staph however repeat blood cultures have been negative. ID and nephrology are following. She is s/p catheter removal/ exchange by IR. She has poor peripheral access and several midline attempts have been unsuccessful. Echocardiogram also showed cardiomyopathy for which cardiology is following. She is on coreg and cozaar. Risks and benefits of starting anticoagulation as per cardiology were discussed with the patient, however she has deferred therapy until she discusses with her private strap maker for second opinion. Rio Orozco MD Hospitalist.
[2017-10-31 12:25] VITALS: RESP 18; TEMP 98.3
[2017-10-31 14:57] VITALS: BP 152/99; PULSE 85
--- NOTE | 2017-10-31 15:41 | CP.PCM.DIS ---
<Brittanie Guzman - Last Filed: 10/31/17 18:02> Provider - Provider Date of Admission: 10/24/17 17:00 Attending physician: Rio Orozco MD Primary care physician: José Vigil Jr, MD Consults: Cardio: Dr. Thrasher IR: Dr. Luz Nephro: Dr. Sanford Time Spent in preparation of Discharge (in minutes): 55 Hospital Course - Lab Results Lab Results: Micro Results 10/29/17 12:20 Blood-Venous Blood Culture - Preliminary NO GROWTH AFTER 48 HOURS 10/29/17 12:10 Blood-Venous Blood Culture - Preliminary NO GROWTH AFTER 48 HOURS Most Recent Lab Values WBC 4.2 10^3/ul (4.5-11.0) L D 10/31/17 06:00 RBC 3.27 10^6/uL (3.5-6.1) L 10/31/17 06:00 Hgb 10.0 g/dL (12.0-16.0) L 10/31/17 06:00 Hct 30.7 % (36.0-48.0) L 10/31/17 06:00 MCV 93.9 fl (80.0-105.0) 10/31/17 06:00 MCH 30.6 pg (25.0-35.0) 10/31/17 06:00 MCHC 32.6 g/dl (31.0-37.0) 10/31/17 06:00 RDW 16.7 % (11.5-14.5) H 10/31/17 06:00 Plt Count 130 10^3/uL (120.0-450.0) 10/31/17 06:00 MPV 9.6 fl (7.0-11.0) 10/31/17 06:00 Gran % 55.4 % (50.0-68.0) 10/31/17 06:00 Lymph % (Auto) 23.8 % (22.0-35.0) 10/31/17 06:00 [place] % (Auto) 13.1 % (1.0-6.0) H 10/31/17 06:00 Eos % (Auto) 6.7 % (1.5-5.0) H 10/31/17 06:00 Baso % (Auto) 1.0 % (0.0-3.0) 10/31/17 06:00 Gran # 2.34 (1.4-6.5) 10/31/17 06:00 Lymph # (Auto) 1.0 (1.2-3.4) L 10/31/17 06:00 [place] # (Auto) 0.6 (0.1-0.6) 10/31/17 06:00 Eos # (Auto) 0.3 (0.0-0.7) 10/31/17 06:00 Baso # (Auto) 0.04 K/mm3 (0.0-2.0) 10/31/17 06:00 PT 12.7 SECONDS (9.4-12.5) H 10/31/17 06:00 INR 1.10 (0.93-1.08) H 10/31/17 06:00 APTT 35.4 Seconds (25.1-36.5) 10/24/17 16:32 pO2 51 mm/Hg (30-55) 10/24/17 16:32 VBG pH 7.35 (7.32-7.43) 10/24/17 16:32 VBG pCO2 55.0 (40-60) 10/24/17 16:32 VBG HCO3 30.4 mmol/l (21-28) H 10/24/17 16:32 VBG Total CO2 32.1 mmol.L (22-28) H 10/24/17 16:32 VBG O2 Sat (Calc) 87.6 % (40-65) H 10/24/17 16:32 VBG Base Excess 3.4 mmol/L (0.0-2.0) H 10/24/17 16:32 VBG Potassium 5.6 mmol/L (3.6-5.2) H 10/24/17 16:32 Sodium 137.0 mmol/L (132-148) 10/24/17 16:32 Chloride 100.0 mmol/L (98-107) 10/24/17 16:32 Glucose 97 mg/dl (65-105) 10/24/17 16:32 Lactate 1.6 mmol/L (0.7-2.1) 10/24/17 16:32 FiO2 21.0 % 10/24/17 16:32 Sodium 141 mmol/L (132-148) 10/31/17 06:00 Potassium 4.3 mmol/L (3.6-5.0) 10/31/17 06:00 Chloride 98 mmol/L (98-107) 10/31/17 06:00 Carbon Dioxide 30 mmol/L (21-33) 10/31/17 06:00 Anion Gap 17 (10-20) 10/31/17 06:00 BUN 20 mg/dL (7-21) 10/31/17 06:00 Creatinine 5.3 mg/dl (0.7-1.2) H 10/31/17 06:00 Est GFR ( Amer) 11 10/31/17 06:00 Est GFR (Non-Af Amer) 9 10/31/17 06:00 Random Glucose 83 mg/dL (70-110) 10/31/17 06:00 Calcium 8.7 mg/dL (8.4-10.5) 10/31/17 06:00 Phosphorus 4.2 mg/dL (2.5-4.5) 10/30/17 06:30 Magnesium 2.2 mg/dL (1.7-2.2) 10/30/17 06:30 Total Bilirubin 0.5 mg/dL (0.2-1.3) 10/31/17 06:00 AST 28 U/L (14-36) 10/31/17 06:00 ALT 23 U/L (7-56) 10/31/17 06:00 Alkaline Phosphatase 139 U/L (38-126) H 10/31/17 06:00 Total Protein 7.3 g/dL (5.8-8.3) 10/31/17 06:00 Albumin 4.0 g/dL (3.0-4.8) 10/31/17 06:00 Globulin 3.3 gm/dL 10/31/17 06:00 Albumin/Globulin Ratio 1.2 (1.1-1.8) 10/31/17 06:00 Procalcitonin 43.27 NG/ML (0.19-0.49) H 10/24/17 16:32 Beta HCG, Quant < 2.39 mIU/mL (0-6.15) 10/25/17 09:00 Venous Blood Potassium 5.6 mmol/L (3.6-5.2) H 10/24/17 16:32 HIV 1&2 Ag/Ab, 4th Gen Nonreactive (Nonreactive) 10/25/17 08:00 - Hospital Course Hospital Course: This is a 37 yo female with past medical history of HTN, anemia, possible hx of heart failure and CABG, failed renal transplant, ESRD on HD MWF, who was admitted for pseudomonas bactermia most secondary to infected permacath. Patient was started on IV antibiotics. Of note, 1 bottle of peripheral blood was positive for coag negative staph, but repeat blood cultures have been negative. ID was consulted and recommended IV antibiotics for 10-14 days after the permacath was removed. IR was consulted and removed her L sided permacath and placed a catheter on the R neck. Patient has poor IV access and had multiple Midline attempts for assisted IV antibiotics that were all unsuccessful. Patient agreed to have antibiotics given peripherally daily as outpatient as well as during dialysis during her dialysis days. Nephrology was also consulted and HD was continued as scheduled. Echo was done which showed cardiomyopathy with EF of 30%. Cardiology was consulted and recommended anticoagulation. Discussed the risks, benefits, options and alternatives to starting anticoagulation. She states that she would like to discuss it with her Paralegal Internship in [place] first before starting anticoagulation. During her hospital stay, her blood pressure medications were adjusted. Discussed discharge plan with patient in detail and she verbalized and agreed with plan. Stop medications: Labetolol 100 TID Clonidine 0.1 BID Discharge medications: Clonidine 0.3 TID Coreg 6.25 BID Losartan 50mg daily Procardia 90mg BID Renagel 2400mg TID Nephrovit 1 tab daily Maxipime 1gm daily x 10 days (given at outpatient infusion and HD) - Date & Time of H&P Date of H&P: 10/24/17 Time of H&P: 16:00 Discharge Exam - Head Exam Head Exam: ATRAUMATIC, NORMAL INSPECTION, NORMOCEPHALIC - Eye Exam Eye Exam: Normal appearance, PERRL Pupil Exam: NORMAL ACCOMODATION, PERRL - Neck Exam Additional comments: R permacath in place- clean and dry - Respiratory Exam Respiratory Exam: Clear to PA & Lateral, NORMAL BREATHING PATTERN, UNREMARKABLE. absent: Rhonchi, Wheezes - Cardiovascular Exam Cardiovascular Exam: REGULAR RHYTHM, +S1, +S2. absent: Gallop, Rubs, Systolic Murmur - GI/Abdominal Exam GI & Abdominal Exam: Normal Bowel Sounds, Soft, Unremarkable. absent: Mass, Rebound, Tenderness - Extremities Exam Additional comments: L arm scarring - Neurological Exam Neurological exam: Alert, CN II-XII Intact, Normal Gait, Oriented x3 - Psychiatric Exam Psychiatric exam: Normal Affect, Normal Mood - Skin Skin Exam: Dry, Warm Discharge Plan - Discharge Medications Prescriptions: Carvedilol [Coreg] 6.25 mg PO 0800,1800 #60 tab cloNIDine [Catapres] 0.3 mg PO TID #90 tab Losartan [Cozaar] 50 mg PO DIN #30 tab NIFEdipine ER [Procardia XL] 90 mg PO BID #60 ter Sevelamer [Renagel] 2,400 mg PO TID #90 tab Vitamin B Complex/Vit C/Folic [Nephro-Teresa] 1 tab PO 0800 #30 tab - Follow Up Plan Condition: FAIR Disposition: HOME/ ROUTINE Instructions: Sepsis in Adults, Dialysis Diet , Dialysis Catheter Additional Instructions: 1. Your blood pressure medications has changed. Please take medication as prescribed 2. You will need IV antibiotics for 10 more days for a total of 14 days. 3. Follow up with Dr. Sanford, Nephrology as outpatient. 4. Continue hemodialysis as scheduled. 5. Follow up with your outpatient cardiology for evaluation of your heart failure. 6. Patient will be administered antibiotic during dialysis on MWF and at outpatient oncology on remaining days until a total of 14 days. 7. If symptoms occur again, go to the nearest emergency room. Referrals: Yvon Sanford MD [Staff Provider] - Bhargav Thrasher MD [Staff Provider] - José Vigil Jr., MD [Primary Care Provider] - <Rio Orozco - Last Filed: 11/01/17 06:29> Provider - Provider Date of Admission: 10/24/17 17:00 Attending physician: Rio Orozco MD Primary care physician: José Vigil Jr, MD Hospital Course - Lab Results Lab Results: Micro Results 10/29/17 12:20 Blood-Venous Blood Culture - Preliminary NO GROWTH AFTER 48 HOURS 10/29/17 12:10 Blood-Venous Blood Culture - Preliminary NO GROWTH AFTER 48 HOURS Most Recent Lab Values WBC 4.2 10^3/ul (4.5-11.0) L D 10/31/17 06:00 RBC 3.27 10^6/uL (3.5-6.1) L 10/31/17 06:00 Hgb 10.0 g/dL (12.0-16.0) L 10/31/17 06:00 Hct 30.7 % (36.0-48.0) L 10/31/17 06:00 MCV 93.9 fl (80.0-105.0) 10/31/17 06:00 MCH 30.6 pg (25.0-35.0) 10/31/17 06:00 MCHC 32.6 g/dl (31.0-37.0) 10/31/17 06:00 RDW 16.7 % (11.5-14.5) H 10/31/17 06:00 Plt Count 130 10^3/uL (120.0-450.0) 10/31/17 06:00 MPV 9.6 fl (7.0-11.0) 10/31/17 06:00 Gran % 55.4 % (50.0-68.0) 10/31/17 06:00 Lymph % (Auto) 23.8 % (22.0-35.0) 10/31/17 06:00 [place] % (Auto) 13.1 % (1.0-6.0) H 10/31/17 06:00 Eos % (Auto) 6.7 % (1.5-5.0) H 10/31/17 06:00 Baso % (Auto) 1.0 % (0.0-3.0) 10/31/17 06:00 Gran # 2.34 (1.4-6.5) 10/31/17 06:00 Lymph # (Auto) 1.0 (1.2-3.4) L 10/31/17 06:00 [place] # (Auto) 0.6 (0.1-0.6) 10/31/17 06:00 Eos # (Auto) 0.3 (0.0-0.7) 10/31/17 06:00 Baso # (Auto) 0.04 K/mm3 (0.0-2.0) 10/31/17 06:00 PT 12.7 SECONDS (9.4-12.5) H 10/31/17 06:00 INR 1.10 (0.93-1.08) H 10/31/17 06:00 APTT 35.4 Seconds (25.1-36.5) 10/24/17 16:32 pO2 51 mm/Hg (30-55) 10/24/17 16:32 VBG pH 7.35 (7.32-7.43) 10/24/17 16:32 VBG pCO2 55.0 (40-60) 10/24/17 16:32 VBG HCO3 30.4 mmol/l (21-28) H 10/24/17 16:32 VBG Total CO2 32.1 mmol.L (22-28) H 10/24/17 16:32 VBG O2 Sat (Calc) 87.6 % (40-65) H 10/24/17 16:32 VBG Base Excess 3.4 mmol/L (0.0-2.0) H 10/24/17 16:32 VBG Potassium 5.6 mmol/L (3.6-5.2) H 10/24/17 16:32 Sodium 137.0 mmol/L (132-148) 10/24/17 16:32 Chloride 100.0 mmol/L (98-107) 10/24/17 16:32 Glucose 97 mg/dl (65-105) 10/24/17 16:32 Lactate 1.6 mmol/L (0.7-2.1) 10/24/17 16:32 FiO2 21.0 % 10/24/17 16:32 Sodium 141 mmol/L (132-148) 10/31/17 06:00 Potassium 4.3 mmol/L (3.6-5.0) 10/31/17 06:00 Chloride 98 mmol/L (98-107) 10/31/17 06:00 Carbon Dioxide 30 mmol/L (21-33) 10/31/17 06:00 Anion Gap 17 (10-20) 10/31/17 06:00 BUN 20 mg/dL (7-21) 10/31/17 06:00 Creatinine 5.3 mg/dl (0.7-1.2) H 10/31/17 06:00 Est GFR ( Amer) 11 10/31/17 06:00 Est GFR (Non-Af Amer) 9 10/31/17 06:00 Random Glucose 83 mg/dL (70-110) 10/31/17 06:00 Calcium 8.7 mg/dL (8.4-10.5) 10/31/17 06:00 Phosphorus 4.2 mg/dL (2.5-4.5) 10/30/17 06:30 Magnesium 2.2 mg/dL (1.7-2.2) 10/30/17 06:30 Total Bilirubin 0.5 mg/dL (0.2-1.3) 10/31/17 06:00 AST 28 U/L (14-36) 10/31/17 06:00 ALT 23 U/L (7-56) 10/31/17 06:00 Alkaline Phosphatase 139 U/L (38-126) H 10/31/17 06:00 Total Protein 7.3 g/dL (5.8-8.3) 10/31/17 06:00 Albumin 4.0 g/dL (3.0-4.8) 10/31/17 06:00 Globulin 3.3 gm/dL 10/31/17 06:00 Albumin/Globulin Ratio 1.2 (1.1-1.8) 10/31/17 06:00 Procalcitonin 43.27 NG/ML (0.19-0.49) H 10/24/17 16:32 Beta HCG, Quant < 2.39 mIU/mL (0-6.15) 10/25/17 09:00 Venous Blood Potassium 5.6 mmol/L (3.6-5.2) H 10/24/17 16:32 HIV 1&2 Ag/Ab, 4th Gen Nonreactive (Nonreactive) 10/25/17 08:00 Attending/Attestation - Attestation I have personally seen and examined this patient.: Yes I have fully participated in the care of the patient.: Yes I have reviewed all pertinent clinical information, including history, physical exam and plan: Yes Notes (Text): 10/31/17 37 year old female with past medical history of ESRD on HD, hypertension and anemia with history of renal transplant who presented with complaint of chills during dialysis. She was found to have Pseudomona aeruginosa bacteremia and started on iv antibiotics. 1 bottle blood culture was positive for gram positive cocci / coag negative staph however repeat blood cultures have been negative. She was being followed by ID, nephrology and cardiology. She is s/p catheter removal/exchange by IR. She has poor peripheral access and several midline attempts have been unsuccessful. Echocardiogram also showed cardiomyopathy and she was started on coreg and cozaar. Risks and benefits of starting anticoagulation as per cardiology were discussed with the patient, however she has deferred therapy until she discusses with her private advertising material distributor for second opinion. Patient is discharged home to follow up with pmd. Follow up with advertising material distributor and loft rigger. Continue with iv antibiotics as above. Rio Orozco MD Hospitalist.
--- NOTE | 2017-10-31 16:00 | PN ---
DATE: 10/31/2017 SUBJECTIVE: The patient denies any chest pain. She had no orthopnea last night. PHYSICAL EXAMINATION: VITAL SIGNS: Blood pressure 146/105, heart rate 84, temperature 98.2. LABORATORY DATA: Today's hemoglobin and hematocrit are 10 and 30.7, white count 4.2, platelet count 130,000. Patient's SMA-7 is within normal limits except for creatinine of 5.3. ASSESSMENT: 1. Cardiomyopathy with spontaneous left ventricular and left atrial contrast. 2. Uncontrolled hypertension. 3. End-stage renal disease, on hemodialysis. CONDITIONS: The patient did refuse Coumadin and minoxidil and she requested a second opinion prior to that. I did offer the patient that we can get the second opinion from another literacy teacher at [place], but she declined that and she wanted to seek the advise of her literacy teacher in [facility]. In the meantime, this issue will be discussed with Dr. Orozco and the patient will be maintained on the rest of her medications include hydralazine, Coreg, Cozaar and Procardia XL. Bhargav Thrasher MD
--- NOTE | 2017-10-31 16:39 | PN ---
DATE: 10/31/2017 SUBJECTIVE: The patient is in bed, in no acute distress, nontoxic. PHYSICAL EXAMINATION: VITAL SIGNS: Temperature is 98, blood pressure is 150/60, respiratory rate of 16. HEENT: Unremarkable. NECK: Supple. LUNGS: Decreased breath sounds. HEART: Normal S1 and S2. ABDOMEN: Soft, nontender. LABORATORY EXAMINATION: Reveals a white count of 4.2. Chemistries are noted. Serology is noted and coagulase-negative Staphylococcus in the blood is noted. Repeat blood cultures are negative in 24 hours. ASSESSMENT AND PLAN: This is a 37-year-old female who was seen earlier today in [facility], bed 2, who was complaining of itching and is continuing to get meropenem. 1. Pseudomonas bacteremia suspicious for hemodialysis catheter-related bacteremia and status post removal of the catheter and replacement. 2. Hypertension, the patient with hypertension, end-stage renal disease, on hemodialysis. The patient with a history of hemolytic uremic syndrome post . 3. Chronic anemia. The patient also had a kidney transplant, which lasted for 10 years and history of breast implants. Will need 10 to 14 days of antibiotics and will change to Maxipime 1 g IV every 24 hours to see if that itching will improve with a different formulation and discontinue the meropenem. Today is day #8 of antibiotics with complete 10 to 14 days. Raffy Reddy MD
== END 2017-10-31 18:44 | disposition home or self-care (01) | DRG 314 ==
LOC: ED 14:51 → ERH 17:00 → 5RSO 20:45 → 2RSO 10-27 19:54 → 2RNO 10-28 22:31 → ERH 10-29 08:59 → 2RNO 10-29 09:24 → 5RNO 10-29 09:24
PROVIDERS: ADMIT Internal Medicine; ATTEND Internal Medicine
PROC: 5A1D70Z Performance of Urinary Filtration, Intermittent, Less than 6 Hours Per Day (ICD-10-PCS; 2017-10-25)
PROC: 0JH63XZ Insertion of Tunneled Vascular Access Device into Chest Subcutaneous Tissue and Fascia, Percutaneous Approach (ICD-10-PCS; principal; 2017-10-28)
PROC: 02H633Z Insertion of Infusion Device into Right Atrium, Percutaneous Approach (ICD-10-PCS; 2017-10-28)
PROC: 5A1D70Z Performance of Urinary Filtration, Intermittent, Less than 6 Hours Per Day (ICD-10-PCS; 2017-10-28)
PROC: 05PY33Z Removal of Infusion Device from Upper Vein, Percutaneous Approach (ICD-10-PCS; 2017-10-28)
PROC: 5A1D70Z Performance of Urinary Filtration, Intermittent, Less than 6 Hours Per Day (ICD-10-PCS; 2017-10-30)
DX: T80.211A Bloodstream infection due to central venous catheter, initial encounter (principal); A41.52 Sepsis due to Pseudomonas; N18.6 End stage renal disease; D59.3 Hemolytic-uremic syndrome; Z94.0 Kidney transplant status; I13.2 Hypertensive heart and chronic kidney disease with heart failure and with stage 5 chronic kidney disease, or end stage renal disease; I50.20 Unspecified systolic (congestive) heart failure; I50.82 Biventricular heart failure; B37.3 Candidiasis of vulva and vagina; N25.81 Secondary hyperparathyroidism of renal origin; I42.0 Dilated cardiomyopathy; I27.20 Pulmonary hypertension, unspecified; Z99.2 Dependence on renal dialysis; E78.5 Hyperlipidemia, unspecified; E83.39 Other disorders of phosphorus metabolism; K59.00 Constipation, unspecified; N89.8 Other specified noninflammatory disorders of vagina; Z99.81 Dependence on supplemental oxygen; Y84.8 Other medical procedures as the cause of abnormal reaction of the patient, or of later complication, without mention of misadventure at the time of the procedure; Z98.82 Breast implant status; Z95.1 Presence of aortocoronary bypass graft; Z87.891 Personal history of nicotine dependence